=== PATIENT | male | born 1960 | race African-American/Black ===

== ENCOUNTER 2021-07-31 04:49 | Day surgery (SDC) | payer OTHER ==
[2021-07-30 15:13] VITALS: BMI 26.7
[2021-07-31] MEDS ORDERED: MIDAZOLAM HCL 2 MG/2 ML SINGLE DOSE VIAL IVPUSH ONE (12:06)
[2021-07-31 14:39] VITALS: TEMP 97
[2021-07-31 14:40] VITALS: BP 139/82; PULSE 66
== END 2021-07-31 15:10 | disposition home or self-care (01) ==
LOC: JRADIR 04:49
PROVIDERS: ATTEND Urology
PROC: 0T9130Z Drainage of Left Kidney with Drainage Device, Percutaneous Approach (ICD-10-PCS; principal; 2021-07-31)
DX: N13.9 Obstructive and reflux uropathy, unspecified (principal)
CPT/HCPCS: 50432; 87070; 87075; 87102; 87205; 87210; A4358; C1729; C1769

== ENCOUNTER 2021-09-03 05:22 | Day surgery (SDC) | payer OTHER ==
[2021-09-02 11:00] VITALS: BMI 26.7
[2021-09-03 17:19] VITALS: BP 130/82; PULSE 70; TEMP 97.5
== END 2021-09-03 17:58 | disposition home or self-care (01) ==
LOC: JRADIR 05:22
PROVIDERS: ATTEND Urology
PROC: BT12YZZ Fluoroscopy of Left Kidney using Other Contrast (ICD-10-PCS; principal; 2021-09-03)
PROC: 0T9030Z Drainage of Right Kidney with Drainage Device, Percutaneous Approach (ICD-10-PCS; 2021-09-03)
DX: N13.2 Hydronephrosis with renal and ureteral calculous obstruction (principal); N35.819 Other urethral stricture, male, unspecified site
CPT/HCPCS: 50431; 50432

== ENCOUNTER 2021-09-26 04:32 | Day surgery (SDC) | payer OTHER ==
[2021-09-25 10:39] VITALS: BMI 25.7
[2021-09-26] MEDS ORDERED: MIDAZOLAM HCL 2 MG/2 ML SINGLE DOSE VIAL ONE (10:22)
[2021-09-26] MEDS ORDERED: MIDAZOLAM HCL 2 MG/2 ML SINGLE DOSE VIAL IVPUSH ONE ×2 (10:45→11:26)
[2021-09-26] MEDS ORDERED: ACETAMINOPHEN INJECTION 100 ML IVPB ONE (12:53)
[2021-09-26] MEDS ORDERED: ACETAMINOPHEN 1000 MG/100 ML BAG IVPB ONE (13:00)
[2021-09-26] MEDS ORDERED: TAMSULOSIN HCL 0.4 MG CAP PO ONE ×2 (14:43→14:45)
[2021-09-26 16:48] VITALS: BP 154/90; PULSE 80; TEMP 97.9
== END 2021-09-26 17:30 | disposition home or self-care (01) ==
LOC: JRADIR 04:32
PROVIDERS: ATTEND Radiology Diagnostic Radiology
PROC: 0TP93DZ Removal of Intraluminal Device from Ureter, Percutaneous Approach (ICD-10-PCS; principal; 2021-09-26)
PROC: 0T763DZ Dilation of Right Ureter with Intraluminal Device, Percutaneous Approach (ICD-10-PCS; 2021-09-26)
PROC: 0TP Urinary System, Removal (ICD-10-PCS; 2021-09-26)
PROC: 0T743DZ Dilation of Left Kidney Pelvis with Intraluminal Device, Percutaneous Approach (ICD-10-PCS; 2021-09-26)
DX: N13.5 Crossing vessel and stricture of ureter without hydronephrosis (principal)
CPT/HCPCS: 50693; J0131

== ENCOUNTER 2023-05-05 03:36 | Day surgery (SDC) | payer OTHER ==
[2023-05-01 15:11] VITALS: BMI 25.8
[2023-05-05 09:35] LABS: BASO % 1.1 % (0-2.0); HEMATOCRIT 37.9 % (35.4-49); HEMOGLOBIN 11.7 GM/dL (11.7-16.9); LYMPH % 27.3 % (8-40); MCH 24.3 pg (25.7-33.7); MCHC 30.8 g/dl (32.0-35.9); MEAN CELL VOLUME 78.9 fl (80-96); MEAN PLT VOLUME 8.4 fl (7.5-11.1); MONO % 7.7 % (3.8-10.2); NEUT % 61.9 % (42.8-82.8); PLATELET COUNT 257 10^3/uL (134-434); RBC 4.81 M/mm3 (4.00-5.60); RDW 21.8 % (11.9-15.9); WHITE BLOOD COUNT 5.1 K/mm3 (4.0-10.0)
[2023-05-05 09:46] LABS: INR 1.13 (0.83-1.09); PROTHROMBIN TIME (PATIENT) 13.1 SEC (9.7-13.0)
[2023-05-05 10:03] LABS: ANISOCYTOSIS 1+; MACROCYTOSIS 1+
[2023-05-05] MEDS ORDERED: SODIUM CHLORIDE 500 ML IV SCH (10:45)
[2023-05-05] MEDS ORDERED: MIDAZOLAM HCL 2 MG/2 ML SINGLE DOSE VIAL ONE (10:47)
[2023-05-05] MEDS ORDERED: FENTANYL CITRATE/PF 50 MCG/ML VIAL ONE (10:47)
[2023-05-05] MEDS ORDERED: FENTANYL CITRATE/PF 50 MCG/ML VIAL IVPUSH ONE (11:13)
[2023-05-05] MEDS ORDERED: MIDAZOLAM HCL 2 MG/2 ML SINGLE DOSE VIAL IVPUSH ONE ×2 (11:13)
[2023-05-05 12:08] VITALS: RESP 18
[2023-05-05 13:55] VITALS: BP 123/78; PULSE 81; TEMP 98.1
== END 2023-05-05 13:30 | disposition home or self-care (01) ==
LOC: JRADIR 03:36
PROVIDERS: ATTEND Internal Medicine Hematology & Oncology
PROC: 0JH63WZ Insertion of Totally Implantable Vascular Access Device into Chest Subcutaneous Tissue and Fascia, Percutaneous Approach (ICD-10-PCS; principal; 2023-05-05)
DX: C61 Malignant neoplasm of prostate (principal)
CPT/HCPCS: 36561; C1788; 36415; 85025; 85610

== ENCOUNTER 2023-05-11 09:40 | Day surgery (SDC) | payer OTHER ==
[~2023-05-11 09:40] MED LIST: DEXAMETHASONE SODIUM PHOSPHATE IVPB ONE; GRANISETRON HCL IVPB ONE; SODIUM CHLORIDE 250 ML IV ONE; SODIUM CHLORIDE IVPB ONE
[2023-05-11] MEDS ORDERED: DENOSUMAB 120 MG/1.7 ML VIAL SQ ONE (10:00)
[2023-05-11] MEDS ORDERED: DOCETAXEL 140 MG in SODIUM CHLORIDE 250 ML IV ONE (10:00)
[2023-05-11 11:31] LABS: BASO % 0.2 % (0-2.0); HEMATOCRIT 38.6 % (35.4-49); HEMOGLOBIN 12.2 GM/dL (11.7-16.9); LYMPH % 13.1 % (8-40); MCH 24.2 pg (25.7-33.7); MCHC 31.7 g/dl (32.0-35.9); MEAN CELL VOLUME 76.5 fl (80-96); MEAN PLT VOLUME 8.8 fl (7.5-11.1); MONO % 3.9 % (3.8-10.2); NEUT % 82.8 % (42.8-82.8); PLATELET COUNT 286 10^3/uL (134-434); RBC 5.04 M/mm3 (4.00-5.60); RDW 21.6 % (11.9-15.9); WHITE BLOOD COUNT 7.6 K/mm3 (4.0-10.0)
[2023-05-11 11:54] LABS: POTASSIUM 4.7 mmol/L (3.5-5.1)
[2023-05-11 12:00] LABS: ALBUMIN 3.3 g/dl (3.4-5.0); BLOOD UREA NITROGEN 13.5 mg/dL (7-18); CALCIUM 8.9 mg/dL (8.5-10.1); MAGNESIUM 2.2 mg/dL (1.8-2.4)
[2023-05-11 12:03] LABS: ANISOCYTOSIS 1+; BILIRUBIN,DIRECT 0.1 mg/dL (0.0-0.2); CREATININE 0.8 mg/dL (0.55-1.3); MACROCYTOSIS 1+; OVALOCYTE 1+
[2023-05-11 12:05] LABS: BILIRUBIN,TOTAL 0.3 mg/dL (0.2-1); TOT PROT 7.1 g/dl (6.4-8.2)
[2023-05-11] MEDS ORDERED: PORTA CATH FLUSH 10 ML IVPUSH PRN (16:00)
[2023-05-11 16:01] VITALS: RESP 18; TEMP 97.8
[2023-05-11 16:49] VITALS: BP 142/83; PULSE 70
== END 2023-05-11 15:00 | disposition home or self-care (01) ==
LOC: JONCCHEMO 09:40
PROVIDERS: ATTEND Internal Medicine Hematology & Oncology
PROC: 3E04305 Introduction of Other Antineoplastic into Central Vein, Percutaneous Approach (ICD-10-PCS; principal; 2023-05-11)
PROC: 3E013GC Introduction of Other Therapeutic Substance into Subcutaneous Tissue, Percutaneous Approach (ICD-10-PCS; 2023-05-11)
DX: Z51.11 Encounter for antineoplastic chemotherapy (principal); C61 Malignant neoplasm of prostate
CPT/HCPCS: 36415; 80048; 80076; 83735; 84153; 84402; 84403; 85025; 96367; 96372; 96413; J0897

== ENCOUNTER 2023-05-20 10:17 | Day surgery (SDC) | payer OTHER ==
[2023-05-20] MEDS ORDERED: TBO-FILGRASTIM 480 MCG/0.8 ML DISP.SYRIN SQ ONE (10:30)
[2023-05-20 16:44] VITALS: BP 119/78; PULSE 84; RESP 20; TEMP 97.8
== END 2023-05-20 10:45 | disposition home or self-care (01) ==
LOC: JONCCHEMO 10:17 → J7W 10:37 → JONCCHEMO 10:45
PROVIDERS: ATTEND Internal Medicine Hematology & Oncology
PROC: 3E013GC Introduction of Other Therapeutic Substance into Subcutaneous Tissue, Percutaneous Approach (ICD-10-PCS; principal; 2023-05-20)
DX: C61 Malignant neoplasm of prostate (principal); C79.51 Secondary malignant neoplasm of bone; Z76.89 Persons encountering health services in other specified circumstances
CPT/HCPCS: 96372; J1447

== ENCOUNTER 2023-05-21 09:21 | Day surgery (SDC) | payer OTHER ==
[~2023-05-21 09:21] MED LIST changes: -DEXAMETHASONE SODIUM PHOSPHATE IVPB ONE; -GRANISETRON HCL IVPB ONE; -SODIUM CHLORIDE 250 ML IV ONE; -SODIUM CHLORIDE IVPB ONE; +TBO-FILGRASTIM 480 MCG/0.8 ML DISP.SYRIN SQ ONE
[2023-05-21] MEDS ORDERED: BUPIVACAINE HCL/PF 0.5% (5MG/ML) 10 ML VIAL ONE (13:26)
[2023-05-21 16:58] VITALS: BP 103/75; PULSE 90; RESP 18; TEMP 98.4
== END 2023-05-21 10:00 | disposition home or self-care (01) ==
LOC: JONCCHEMO 09:21 → J7W 09:21 → JONCCHEMO 10:00
PROVIDERS: ATTEND Internal Medicine Hematology & Oncology
PROC: 3E013GC Introduction of Other Therapeutic Substance into Subcutaneous Tissue, Percutaneous Approach (ICD-10-PCS; principal; 2023-05-21)
DX: C61 Malignant neoplasm of prostate (principal); C79.51 Secondary malignant neoplasm of bone; C79.52 Secondary malignant neoplasm of bone marrow; Z76.89 Persons encountering health services in other specified circumstances
CPT/HCPCS: 96372; J1447

== ENCOUNTER 2023-05-22 09:27 | Day surgery (SDC) | payer OTHER ==
[2023-05-22 15:44] VITALS: BP 115/75; PULSE 92; RESP 18; TEMP 98.3
== END 2023-05-22 10:05 | disposition home or self-care (01) ==
LOC: J7W 09:27 → JONCCHEMO 09:27
PROVIDERS: ATTEND Internal Medicine Hematology & Oncology
PROC: 3E013GC Introduction of Other Therapeutic Substance into Subcutaneous Tissue, Percutaneous Approach (ICD-10-PCS; principal; 2023-05-22)
DX: C61 Malignant neoplasm of prostate (principal); C79.51 Secondary malignant neoplasm of bone; C79.52 Secondary malignant neoplasm of bone marrow; Z76.89 Persons encountering health services in other specified circumstances
CPT/HCPCS: 96372; J1447

== ENCOUNTER 2023-06-01 09:26 | Day surgery (SDC) | payer OTHER ==
[~2023-06-01 09:26] MED LIST changes: +SODIUM CHLORIDE 250 ML IV ONE; -TBO-FILGRASTIM 480 MCG/0.8 ML DISP.SYRIN SQ ONE
[2023-06-01] MEDS ORDERED: GRANISETRON HCL IVPB ONE (09:30)
[2023-06-01] MEDS ORDERED: DEXAMETHASONE SODIUM PHOSPHATE IVPB ONE (09:30)
[2023-06-01] MEDS ORDERED: SODIUM CHLORIDE IVPB ONE (09:30)
[2023-06-01] MEDS ORDERED: DOCETAXEL 140 MG in SODIUM CHLORIDE 250 ML IV ONE (10:00)
[2023-06-01 10:59] LABS: POTASSIUM 3.9 mmol/L (3.5-5.1)
[2023-06-01] MEDS ORDERED: SODIUM CHLORIDE 250 ML IV ONE (11:00)
[2023-06-01 11:02] LABS: ALBUMIN 3.5 g/dl (3.4-5.0); BLOOD UREA NITROGEN 17.6 mg/dL (7-18); CALCIUM 7.5 mg/dL (8.5-10.1); MAGNESIUM 2.3 mg/dL (1.8-2.4)
[2023-06-01 11:06] LABS: BILIRUBIN,DIRECT 0.1 mg/dL (0.0-0.2); BILIRUBIN,TOTAL 0.4 mg/dL (0.2-1); PHOSPHOROUS 2.6 mg/dL (2.5-4.9)
[2023-06-01 11:07] LABS: BASO % 0.3 % (0-2.0); HEMATOCRIT 35.2 % (35.4-49); HEMOGLOBIN 11.4 GM/dL (11.7-16.9); LYMPH % 27.9 % (8-40); MCH 24.6 pg (25.7-33.7); MCHC 32.4 g/dl (32.0-35.9); MEAN CELL VOLUME 75.9 fl (80-96); MEAN PLT VOLUME 9.6 fl (7.5-11.1); MONO % 6.9 % (3.8-10.2); NEUT % 64.9 % (42.8-82.8); PLATELET COUNT 198 10^3/uL (134-434); RBC 4.64 M/mm3 (4.00-5.60); RDW 23.2 % (11.9-15.9); TOT PROT 6.7 g/dl (6.4-8.2); WHITE BLOOD COUNT 7.8 K/mm3 (4.0-10.0)
[2023-06-01] MEDS ORDERED: CALCIUM GLUCONATE 10% - 1,000 MG/10 ML VIAL IVPB ONE (11:17)
[2023-06-01 12:07] LABS: ANISOCYTOSIS 2+; MACROCYTOSIS 0; OVALOCYTE 1+
[2023-06-01 16:43] VITALS: BP 143/83; PULSE 63; RESP 18; TEMP 98.1
[2023-06-01] MEDS ORDERED: PORTA CATH FLUSH 10 ML IVPUSH PRN (16:43)
== END 2023-06-01 14:05 | disposition home or self-care (01) ==
LOC: JONCCHEMO 09:26 → J7W 09:28 → JONCCHEMO 14:05
PROVIDERS: ATTEND Internal Medicine Hematology & Oncology
PROC: 3E04305 Introduction of Other Antineoplastic into Central Vein, Percutaneous Approach (ICD-10-PCS; principal; 2023-06-01)
PROC: 3E0437Z Introduction of Electrolytic and Water Balance Substance into Central Vein, Percutaneous Approach (ICD-10-PCS; 2023-06-01)
PROC: 3E043GC Introduction of Other Therapeutic Substance into Central Vein, Percutaneous Approach (ICD-10-PCS; 2023-06-01)
DX: Z51.11 Encounter for antineoplastic chemotherapy (principal); C61 Malignant neoplasm of prostate
CPT/HCPCS: 36415; 80048; 80076; 83735; 84100; 84153; 84402; 84403; 85025; 96361; 96367; 96413

== ENCOUNTER 2023-06-02 14:13 | Day surgery (SDC) | payer OTHER ==
[~2023-06-02 14:13] MED LIST changes: +PEGFILGRASTIM-CBQV (UDENYCA) 6 MG/0.6 ML SYRINGE SQ ONE; -SODIUM CHLORIDE 250 ML IV ONE
[2023-06-02 17:35] VITALS: BP 147/86; PULSE 63; RESP 20; TEMP 97.7
== END 2023-06-02 14:15 | disposition home or self-care (01) ==
LOC: JONCCHEMO 14:13 → J7W 14:14 → JONCCHEMO 14:15
PROVIDERS: ATTEND Internal Medicine Hematology & Oncology
PROC: 3E013GC Introduction of Other Therapeutic Substance into Subcutaneous Tissue, Percutaneous Approach (ICD-10-PCS; principal; 2023-06-02)
DX: Z76.89 Persons encountering health services in other specified circumstances (principal); C61 Malignant neoplasm of prostate
CPT/HCPCS: 96372; Q5111

== ENCOUNTER 2023-06-22 10:07 | Day surgery (SDC) | payer OTHER ==
[~2023-06-22 10:07] MED LIST changes: +CALCIUM GLUC IN NACL, ISO-OSM 1 GM/50 ML BAG IVPB ONE; +DEXAMETHASONE SODIUM PHOSPHATE 10 MG in SODIUM CHLORIDE 50 ML IVPB ONE; +GRANISETRON HCL/PF 1 MG in SODIUM CHLORIDE 50 ML IVPB ONE; -PEGFILGRASTIM-CBQV (UDENYCA) 6 MG/0.6 ML SYRINGE SQ ONE; +SODIUM CHLORIDE 250 ML IV ONE
[2023-06-22] MEDS ORDERED: DOCETAXEL 140 MG in SODIUM CHLORIDE 250 ML IV ONE (10:30)
[2023-06-22 11:19] LABS: BASO % 0.1 % (0-2.0); HEMATOCRIT 36.4 % (35.4-49); HEMOGLOBIN 11.5 GM/dL (11.7-16.9); LYMPH % 5.6 % (8-40); MCHC 31.7 g/dl (32.0-35.9); MEAN CELL VOLUME 75.7 fl (80-96); MONO % 7.7 % (3.8-10.2); NEUT % 86.6 % (42.8-82.8); PLATELET COUNT 311 10^3/uL (134-434); RBC 4.81 M/mm3 (4.00-5.60); RDW 24.9 % (11.9-15.9); WHITE BLOOD COUNT 16.3 K/mm3 (4.0-10.0)
[2023-06-22] MEDS ORDERED: SODIUM CHLORIDE 250 ML IV ONE (11:30)
[2023-06-22 11:34] LABS: POTASSIUM 4.4 mmol/L (3.5-5.1)
[2023-06-22 11:36] LABS: CALCIUM 7.8 mg/dL (8.5-10.1)
[2023-06-22 11:37] LABS: ALBUMIN 3.5 g/dl (3.4-5.0); BLOOD UREA NITROGEN 15.6 mg/dL (7-18); MAGNESIUM 2.3 mg/dL (1.8-2.4)
[2023-06-22 11:40] LABS: BILIRUBIN,DIRECT 0.1 mg/dL (0.0-0.2); CREATININE 0.9 mg/dL (0.55-1.3); PHOSPHOROUS 3.1 mg/dL (2.5-4.9)
[2023-06-22 11:41] LABS: TOT PROT 6.8 g/dl (6.4-8.2)
[2023-06-22 11:42] LABS: BILIRUBIN,TOTAL 0.2 mg/dL (0.2-1)
[2023-06-22 12:33] LABS: ANISOCYTOSIS 1+; MACROCYTOSIS 1+; OVALOCYTE 1+
[2023-06-22 16:36] VITALS: BP 141/87; PULSE 91; RESP 18; TEMP 98.1
[2023-06-22] MEDS ORDERED: PORTA CATH FLUSH 10 ML IVPUSH PRN (16:36)
== END 2023-06-22 14:55 | disposition home or self-care (01) ==
LOC: JONCCHEMO 10:07 → J7W 10:14 → JONCCHEMO 14:55
PROVIDERS: ATTEND Internal Medicine Hematology & Oncology
DX: Z51.11 Encounter for antineoplastic chemotherapy (principal); C61 Malignant neoplasm of prostate; C79.51 Secondary malignant neoplasm of bone
CPT/HCPCS: 36415; 80048; 80076; 83735; 84100; 84153; 84402; 84403; 85025; 96367; 96375; 96413

== ENCOUNTER 2023-06-27 07:03 | Observation (INO) | payer OTHER ==
[2023-06-27] MEDS ORDERED: ACETAMINOPHEN 1000 MG/100 ML BAG IVPB ONE (07:45)
[2023-06-27] MEDS ORDERED: ACETAMINOPHEN INJECTION 100 ML IVPB ONE (07:46)
[2023-06-27] MEDS ORDERED: morphine SULFATE 4 MG/ML VIAL IVPUSH ONE (07:52)
[2023-06-27 08:12] LABS: EPI CELLS 34 /uL (0-25.1); HYALINE CASTS 0 /uL (0-3.1); URINE APPEARANCE CLEAR; URINE BACTERIA 24 /uL (0-1359); URINE BILIRUBIN NEGATIVE (NEGATIVE); URINE COLOR YELLOW; URINE GLUCOSE (UA) NEGATIVE (NEGATIVE); URINE KETONE NEGATIVE (NEGATIVE); URINE LEUK ESTERASE TRACE (NEGATIVE); URINE NITRITE NEGATIVE (NEGATIVE); URINE PROTEIN 2+ (NEGATIVE); URINE RBC 42 /uL (0-23.9); URINE UROBILINOGEN 0.2 mg/dL (0.2-1.0); URINE WBC 18 /uL (0-25.8)
[2023-06-27] MEDS ORDERED: morphine SULFATE 4 MG/ML VIAL ONE ×3 (08:33→14:41)
[2023-06-27 08:47] LABS: HEMATOCRIT 35.7 % (35.4-49); HEMOGLOBIN 11.7 GM/dL (11.7-16.9); MCH 24.6 pg (25.7-33.7); MCHC 32.8 g/dl (32.0-35.9); PLATELET COUNT 268 10^3/uL (134-434); RBC 4.76 M/mm3 (4.00-5.60); RDW 24.2 % (11.9-15.9); WHITE BLOOD COUNT 3.6 K/mm3 (4.0-10.0)
[2023-06-27 09:19] LABS: POTASSIUM 4.4 mmol/L (3.5-5.1)
[2023-06-27 09:20] LABS: CALCIUM 7.1 mg/dL (8.5-10.1)
[2023-06-27 09:21] LABS: ALBUMIN 3.3 g/dl (3.4-5.0); BLOOD UREA NITROGEN 11.8 mg/dL (7-18); MAGNESIUM 2.3 mg/dL (1.8-2.4)
[2023-06-27 09:24] LABS: CREATININE 0.8 mg/dL (0.55-1.3)
[2023-06-27 09:26] LABS: BILIRUBIN,TOTAL 0.6 mg/dL (0.2-1); TOT PROT 6.4 g/dl (6.4-8.2)
[2023-06-27 09:50] LABS: ANISOCYTOSIS 2+; MACROCYTOSIS 0
[2023-06-27] MEDS ORDERED: morphine CARPU-JECT 4 MG/1 ML DISP.SYRIN IVPUSH ONE ×2 (11:17→14:39)
[2023-06-27] MEDS ORDERED: CEFTRIAXONE 1,000 MG in DEXTROSE 5%-WATER - 50 ML IVPB ONE (11:41)
[2023-06-27] MEDS ORDERED: DEXTROSE 5% IVPB ONE (12:30)
[2023-06-27] MEDS ORDERED: WATER IVPB ONE (12:30)
[2023-06-27] MEDS ORDERED: GENTAMICIN IVPB ONE (12:30)
[2023-06-27] MEDS ORDERED: CEFTRIAXONE 1 GM/50 ML BAG ONE (13:17)
[2023-06-27] MEDS ORDERED: HYDROmorphone HCl 2 MG/ML VIAL IVPUSH ONE (16:31)
[2023-06-27] MEDS ORDERED: HYDROmorphone HCl 2 MG/ML VIAL ONE (16:40)
[2023-06-27] MEDS ORDERED: CALCIUM GLUC IN NACL, ISO-OSM 1 GM/50 ML BAG IVPB ONE ×2 (17:21→17:40)
[2023-06-27] MEDS ORDERED: ACETAMINOPHEN 500 MG TABLET (FP) PO PRN (17:21)
[2023-06-27] MEDS ORDERED: KETOROLAC TROMETHAMINE 15 MG/ML VIAL ONE (19:38)
[2023-06-27] MEDS: KETOROLAC TROMETHAMINE 15 MG/ML VIAL IVPUSH PRN (19:43)
[2023-06-27 20:47] VITALS: BMI 26.7
[2023-06-27] MEDS ORDERED: TAMSULOSIN HCL 0.4 MG CAP PO SCH (22:00)
[2023-06-27] MEDS ORDERED: PATIENT'S OWN MEDICATION (NON-FORMULARY) (Mirabegron [Myrbetriq] 25 MG Tab.Er.24h) PO SCH (22:00)
[2023-06-27] MEDS: HEPARIN NA (PORCINE) 5,000 UNITS/ML 1ML VIAL SQ SCH (22:03)
[2023-06-28] MEDS: KETOROLAC TROMETHAMINE 15 MG/ML VIAL IVPUSH PRN ×2 (03:29→13:00)
[2023-06-28 04:45] VITALS: BP 131/79; PULSE 115; RESP 22; TEMP 98.6
[2023-06-28 09:36] LABS: HEMATOCRIT 35.4 % (35.4-49); HEMOGLOBIN 11.6 GM/dL (11.7-16.9); MCH 24.4 pg (25.7-33.7); MCHC 32.7 g/dl (32.0-35.9); MEAN CELL VOLUME 74.6 fl (80-96); MEAN PLT VOLUME 9.2 fl (7.5-11.1); PLATELET COUNT 271 10^3/uL (134-434); RBC 4.74 M/mm3 (4.00-5.60); RDW 24.8 % (11.9-15.9); WHITE BLOOD COUNT 2.3 K/mm3 (4.0-10.0)
[2023-06-28 09:37] LABS: CHLORIDE 110 mmol/L (98-107); POTASSIUM 4.9 mmol/L (3.5-5.1); SODIUM 140 mmol/L (136-145)
[2023-06-28 09:46] LABS: ALBUMIN 3.2 g/dl (3.4-5.0); ANION GAP 8 MMOL/L (8-16); CO2 22 mmol/L (21-32); GLUCOSE,RANDOM 119 mg/dL (74-106)
[2023-06-28 09:48] LABS: SGOT/AST 10 U/L (15-37); SGPT/ALT 24 U/L (13-61)
[2023-06-28 09:50] LABS: BILIRUBIN,TOTAL 0.5 mg/dL (0.2-1)
[2023-06-28 09:51] LABS: ALK PHOS 90 U/L (45-117)
[2023-06-28 09:54] LABS: CALCIUM 6.7 mg/dL (8.5-10.1)
[2023-06-28] MEDS ORDERED: CALCIUM 500MG/VIT-D 200 UNITS COMBO TABLET (FP) PO SCH (10:00)
[2023-06-28] MEDS ORDERED: CEFTRIAXONE 1 GM in DEXTROSE 5%-WATER - 50 ML IVPB SCH (10:00)
[2023-06-28] MEDS ORDERED: predniSONE 5 MG TABLET (UD) PO SCH (10:00)
[2023-06-28] MEDS ORDERED: PANTOPRAZOLE 40 MG TABLET PO SCH (10:00)
[2023-06-28] MEDS: HEPARIN NA (PORCINE) 5,000 UNITS/ML 1ML VIAL SQ SCH (10:22)
== END 2023-06-28 14:13 | disposition home or self-care (01) ==
LOC: JER 07:03 → JERBED 12:47 → INTOOBSV 12:47 → UNDOADMOB 12:47 → JERBED 17:19 → J6S 20:13 → JERBED 20:13 → UNDODISOB 06-28 14:13
PROVIDERS: ADMIT Internal Medicine; ATTEND Internal Medicine
PROC: 3E033NZ Introduction of Analgesics, Hypnotics, Sedatives into Peripheral Vein, Percutaneous Approach (ICD-10-PCS; principal; 2023-06-27)
PROC: 3E033GC Introduction of Other Therapeutic Substance into Peripheral Vein, Percutaneous Approach (ICD-10-PCS; 2023-06-27)
PROC: 3E03329 Introduction of Other Anti-infective into Peripheral Vein, Percutaneous Approach (ICD-10-PCS; 2023-06-27)
PROC: 3E023GC Introduction of Other Therapeutic Substance into Muscle, Percutaneous Approach (ICD-10-PCS; 2023-06-27)
PROC: 3E033NZ Introduction of Analgesics, Hypnotics, Sedatives into Peripheral Vein, Percutaneous Approach (ICD-10-PCS; 2023-06-27)
DX: N41.9 Inflammatory disease of prostate, unspecified (principal); C61 Malignant neoplasm of prostate; N13.30 Unspecified hydronephrosis; R82.81 Pyuria; Z79.899 Other long term (current) drug therapy; Z87.891 Personal history of nicotine dependence; K92.9 Disease of digestive system, unspecified
CPT/HCPCS: 36415; 74177-TC; 76775-TC; 80053; 81003; 83735; 85025; 87086; 93005; 93010; 96365; 96366; 96367; 96372; 96375; 96376; 99285-25; G0378; J1644; Q9967

== ENCOUNTER 2023-06-29 10:09 | Day surgery (SDC) | payer OTHER ==
[2023-06-29] MEDS ORDERED: DENOSUMAB 120 MG/1.7 ML VIAL SQ ONE (10:45)
[2023-06-29] MEDS ORDERED: CALCIUM GLUC IN NACL, ISO-OSM 1 GM/50 ML BAG IVPB ONE (10:45)
[2023-06-29] MEDS ORDERED: TBO-FILGRASTIM 480 MCG/0.8 ML DISP.SYRIN SQ ONE (10:45)
[2023-06-29 11:11] LABS: HEMATOCRIT 36.2 % (35.4-49); HEMOGLOBIN 11.8 GM/dL (11.7-16.9); MCH 24.5 pg (25.7-33.7); MCHC 32.5 g/dl (32.0-35.9); MEAN CELL VOLUME 75.2 fl (80-96); MEAN PLT VOLUME 9.3 fl (7.5-11.1); PLATELET COUNT 307 10^3/uL (134-434); RBC 4.82 M/mm3 (4.00-5.60)
[2023-06-29 11:13] LABS: WHITE BLOOD COUNT 1.4 K/mm3 (4.0-10.0)
[2023-06-29 11:30] LABS: CALCIUM 7.4 mg/dL (8.5-10.1)
[2023-06-29 11:31] LABS: ALBUMIN 3.4 g/dl (3.4-5.0); BLOOD UREA NITROGEN 13.4 mg/dL (7-18); MAGNESIUM 2.2 mg/dL (1.8-2.4)
[2023-06-29 11:33] LABS: BILIRUBIN,DIRECT 0.1 mg/dL (0.0-0.2)
[2023-06-29 11:34] LABS: CREATININE 0.8 mg/dL (0.55-1.3); PHOSPHOROUS 2.8 mg/dL (2.5-4.9)
[2023-06-29 11:35] LABS: TOT PROT 6.6 g/dl (6.4-8.2)
[2023-06-29 11:39] LABS: BILIRUBIN,TOTAL 0.4 mg/dL (0.2-1)
[2023-06-29 11:42] LABS: ANISOCYTOSIS 2+; TARGET CELLS 1+; TEAR DROP CELLS 1+
[2023-06-29] MEDS ORDERED: traMADol HCL 50 MG TABLET PO ONE (11:45)
[2023-06-29 17:49] VITALS: RESP 18; TEMP 98.1
[2023-06-29 17:51] VITALS: BP 126/78; PULSE 111
[2023-06-29] MEDS ORDERED: PORTA CATH FLUSH 10 ML IVPUSH PRN (17:51)
== END 2023-06-29 11:10 | disposition home or self-care (01) ==
LOC: JONCCHEMO 10:09 → J7W 10:12 → JONCCHEMO 11:10
PROVIDERS: ATTEND Internal Medicine Hematology & Oncology
PROC: 3E013GC Introduction of Other Therapeutic Substance into Subcutaneous Tissue, Percutaneous Approach (ICD-10-PCS; principal; 2023-06-29)
PROC: 3E013GC Introduction of Other Therapeutic Substance into Subcutaneous Tissue, Percutaneous Approach (ICD-10-PCS; 2023-06-29)
DX: C61 Malignant neoplasm of prostate (principal); C79.51 Secondary malignant neoplasm of bone; Z76.89 Persons encountering health services in other specified circumstances
CPT/HCPCS: 36415; 80048; 80076; 83735; 84100; 85025; 96372; J0897; J1447

== ENCOUNTER 2023-06-30 09:33 | Day surgery (SDC) | payer OTHER ==
[2023-06-30] MEDS ORDERED: TBO-FILGRASTIM 480 MCG/0.8 ML DISP.SYRIN SQ ONE (10:00)
[2023-06-30 13:27] VITALS: BP 114/69; PULSE 107; RESP 18; TEMP 98.2
== END 2023-06-30 10:00 | disposition home or self-care (01) ==
LOC: J7W 09:33 → JONCCHEMO 09:33
PROVIDERS: ATTEND Internal Medicine Hematology & Oncology
PROC: 3E013GC Introduction of Other Therapeutic Substance into Subcutaneous Tissue, Percutaneous Approach (ICD-10-PCS; principal; 2023-06-30)
DX: C61 Malignant neoplasm of prostate (principal); C79.51 Secondary malignant neoplasm of bone; Z76.89 Persons encountering health services in other specified circumstances
CPT/HCPCS: 96372; J1447

== ENCOUNTER 2023-07-01 08:11 | Day surgery (SDC) | payer OTHER ==
[2023-07-01] MEDS ORDERED: TBO-FILGRASTIM 480 MCG/0.8 ML DISP.SYRIN SQ ONE (08:45)
[2023-07-01 16:39] VITALS: BP 127/66; PULSE 110; RESP 18; TEMP 98.2
== END 2023-07-01 09:00 | disposition home or self-care (01) ==
LOC: JONCCHEMO 08:11 → J7W 08:12 → JONCCHEMO 09:00
PROVIDERS: ATTEND Internal Medicine Hematology & Oncology
PROC: 3E013GC Introduction of Other Therapeutic Substance into Subcutaneous Tissue, Percutaneous Approach (ICD-10-PCS; principal; 2023-07-01)
DX: C61 Malignant neoplasm of prostate (principal); C79.51 Secondary malignant neoplasm of bone; Z76.89 Persons encountering health services in other specified circumstances
CPT/HCPCS: 96372; J1447

== ENCOUNTER 2023-07-27 10:36 | Day surgery (SDC) | payer OTHER ==
[~2023-07-27 10:36] MED LIST changes: -CALCIUM GLUC IN NACL, ISO-OSM 1 GM/50 ML BAG IVPB ONE; +DENOSUMAB 120 MG/1.7 ML VIAL SQ ONE; -DEXAMETHASONE SODIUM PHOSPHATE 10 MG in SODIUM CHLORIDE 50 ML IVPB ONE; -GRANISETRON HCL/PF 1 MG in SODIUM CHLORIDE 50 ML IVPB ONE; -SODIUM CHLORIDE 250 ML IV ONE
[2023-07-27 19:04] VITALS: BP 114/77; PULSE 103; RESP 20; TEMP 99
== END 2023-07-27 11:00 | disposition home or self-care (01) ==
LOC: JONCCHEMO 10:36 → J7W 10:37 → JONCCHEMO 11:00
PROVIDERS: ATTEND Internal Medicine Hematology & Oncology
PROC: 3E013GC Introduction of Other Therapeutic Substance into Subcutaneous Tissue, Percutaneous Approach (ICD-10-PCS; principal; 2023-07-27)
DX: C61 Malignant neoplasm of prostate (principal); Z76.89 Persons encountering health services in other specified circumstances
CPT/HCPCS: 96372; J0897

== ENCOUNTER 2023-07-31 23:52 | Inpatient (IN) | payer OTHER ==
[2023-08-01] MEDS ORDERED: morphine CARPU-JECT 4 MG/1 ML DISP.SYRIN IVPUSH ONE (00:21)
[2023-08-01] MEDS ORDERED: morphine SULFATE 4 MG/ML VIAL ONE (00:31)
[2023-08-01 00:35] LABS: HEMATOCRIT 34.8 % (35.4-49); HEMOGLOBIN 11.1 GM/dL (11.7-16.9); MCH 24.1 pg (25.7-33.7); MEAN CELL VOLUME 75.3 fl (80-96); PLATELET COUNT 271 10^3/uL (134-434); RBC 4.62 M/mm3 (4.00-5.60); RDW 27.2 % (11.9-15.9); WHITE BLOOD COUNT 11.9 K/mm3 (4.0-10.0)
[2023-08-01 01:10] LABS: POTASSIUM 3.5 mmol/L (3.5-5.1)
[2023-08-01 01:11] LABS: CALCIUM 7.9 mg/dL (8.5-10.1)
[2023-08-01 01:12] LABS: ALBUMIN 3.5 g/dl (3.4-5.0); BLOOD UREA NITROGEN 14.5 mg/dL (7-18)
[2023-08-01 01:17] LABS: BILIRUBIN,TOTAL 0.3 mg/dL (0.2-1); TOT PROT 6.5 g/dl (6.4-8.2)
[2023-08-01 03:11] LABS: ANISOCYTOSIS 1+; MACROCYTOSIS 1+; TEAR DROP CELLS 1+
[2023-08-01 03:29] LABS: EPI CELLS 4 /uL (0-25.1); HYALINE CASTS 0 /uL (0-3.1); PH,URINE 5.5 (5.0-8.0); URINE APPEARANCE CLEAR; URINE BACTERIA 0 /uL (0-1359); URINE BILIRUBIN NEGATIVE (NEGATIVE); URINE COLOR YELLOW; URINE GLUCOSE (UA) NEGATIVE (NEGATIVE); URINE KETONE NEGATIVE (NEGATIVE); URINE LEUK ESTERASE TRACE (NEGATIVE); URINE NITRITE NEGATIVE (NEGATIVE); URINE PROTEIN NEGATIVE (NEGATIVE); URINE RBC 3 /uL (0-23.9); URINE UROBILINOGEN 0.2 mg/dL (0.2-1.0); URINE WBC 15 /uL (0-25.8)
[2023-08-01] MEDS ORDERED: HYDROmorphone HCl 2 MG/ML VIAL IVPUSH ONE (03:30)
[2023-08-01] MEDS ORDERED: HYDROmorphone HCl 2 MG/ML VIAL ONE ×2 (03:42→08:09)
[2023-08-01] MEDS ORDERED: PANTOPRAZOLE 40 MG TABLET PO ONE ×2 (06:46→07:25)
[2023-08-01] MEDS ORDERED: TAMSULOSIN HCL 0.4 MG CAP PO ONE (06:47)
[2023-08-01] MEDS ORDERED: TAMSULOSIN HCL 0.4 MG CAP ONE (07:25)
[2023-08-01] MEDS ORDERED: HYDROmorphone HCl 2 MG/ML VIAL IVPB ONE (07:57)
[2023-08-01] MEDS ORDERED: ENOXAPARIN NA (PORCINE) 40 MG/0.4 ML DISP.SYRIN SQ ONE (09:29)
[2023-08-01] MEDS: ENOXAPARIN NA (PORCINE) 40 MG/0.4 ML DISP.SYRIN SQ SCH (09:42)
[2023-08-01] MEDS: predniSONE 5 MG TABLET (UD) PO SCH (09:42)
[2023-08-01] MEDS ORDERED: morphine SULFATE 4 MG/ML VIAL SQ PRN (10:18)
[2023-08-01 11:39] VITALS: BMI 26.3
[2023-08-01] MEDS: morphine SULFATE 4 MG/ML VIAL IVPUSH PRN ×2 (13:39→16:55)
[2023-08-01] MEDS: morphine SO4 SUSTAINED ACTING 15 MG TABLET.SA PO SCH ×2 (16:01→21:11)
[2023-08-01] MEDS: DOCUSATE NA 100 MG/10 ML UNIT-DOSE CUPS PO PRN (16:55)
[2023-08-01] MEDS: traZODone HCL 50 MG TABLET (FP) PO PRN (18:16)
[2023-08-01] MEDS: SENNOSIDES 8.8 MG/5 ML SYRUP PO SCH (21:11)
[2023-08-02] MEDS: morphine SULFATE 4 MG/ML VIAL IVPUSH PRN ×4 (00:53→20:24)
[2023-08-02] MEDS ORDERED: SODIUM CHLORIDE IV ONE (05:51)
[2023-08-02] MEDS ORDERED: SODIUM CHLORIDE 1,000 ML IV STA (06:11)
[2023-08-02] MEDS ORDERED: PIPERACILLIN/TAZOB 3.375 GM 3.375 GM in DEXTROSE 5%-WATER - 50 ML IVPB ONE (06:15)
[2023-08-02] MEDS ORDERED: VANCOMYCIN/WATER 1250 MG 1,250 MG/250 ML BAG IVPB ONE (06:30)
[2023-08-02] MEDS ORDERED: SODIUM CHLORIDE 1,000 ML IV ONE (07:15)
[2023-08-02] MEDS: ACETAMINOPHEN 1000 MG/100 ML BAG IVPB PRN ×3 (07:32→21:38)
[2023-08-02] MEDS: predniSONE 5 MG TABLET (UD) PO SCH ×2 (08:56→09:09)
[2023-08-02] MEDS: morphine SO4 SUSTAINED ACTING 15 MG TABLET.SA PO SCH ×4 (08:56→21:34)
[2023-08-02] MEDS: ENOXAPARIN NA (PORCINE) 40 MG/0.4 ML DISP.SYRIN SQ SCH ×2 (08:57→09:09)
[2023-08-02] MEDS: PANTOPRAZOLE 40 MG TABLET PO SCH ×2 (08:57→09:09)
[2023-08-02] MEDS: TAMSULOSIN HCL 0.4 MG CAP PO SCH (08:57)
[2023-08-02] MEDS: CALCIUM CARBONATE 650 MG TABLET PO SCH (12:50)
[2023-08-02] MEDS: CEFTRIAXONE 1 GM in DEXTROSE 5%-WATER - 50 ML IVPB SCH (15:14)
[2023-08-02] MEDS: traZODone HCL 50 MG TABLET (FP) PO PRN (20:31)
[2023-08-02] MEDS: SENNOSIDES 8.8 MG/5 ML SYRUP PO SCH ×2 (20:31→21:33)
[2023-08-03] MEDS: morphine SULFATE 4 MG/ML VIAL IVPUSH PRN ×3 (01:54→16:31)
[2023-08-03] MEDS: CEFTRIAXONE 1 GM in DEXTROSE 5%-WATER - 50 ML IVPB SCH (10:00)
[2023-08-03] MEDS: ENOXAPARIN NA (PORCINE) 40 MG/0.4 ML DISP.SYRIN SQ SCH (10:01)
[2023-08-03] MEDS: morphine SO4 SUSTAINED ACTING 15 MG TABLET.SA PO SCH ×2 (10:01→21:37)
[2023-08-03] MEDS: predniSONE 5 MG TABLET (UD) PO SCH (10:01)
[2023-08-03] MEDS: PANTOPRAZOLE 40 MG TABLET PO SCH (10:01)
[2023-08-03] MEDS: ACETAMINOPHEN 325 MG TABLET (FP) PO PRN ×2 (10:02→21:39)
[2023-08-03] MEDS: TAMSULOSIN HCL 0.4 MG CAP PO SCH (10:02)
[2023-08-03] MEDS: CALCIUM CARBONATE 650 MG TABLET PO SCH (10:02)
[2023-08-03 10:53] LABS: HEMATOCRIT 31.4 % (35.4-49); HEMOGLOBIN 10.2 GM/dL (11.7-16.9); MCH 24.6 pg (25.7-33.7); MCHC 32.6 g/dl (32.0-35.9); MEAN CELL VOLUME 75.5 fl (80-96); MEAN PLT VOLUME 8.6 fl (7.5-11.1); PLATELET COUNT 280 10^3/uL (134-434); RBC 4.16 M/mm3 (4.00-5.60); RDW 27.1 % (11.9-15.9); WHITE BLOOD COUNT 12.6 K/mm3 (4.0-10.0)
[2023-08-03 11:00] LABS: CHLORIDE 108 mmol/L (98-107); POTASSIUM 3.5 mmol/L (3.5-5.1); SODIUM 136 mmol/L (136-145)
[2023-08-03 11:02] LABS: ANION GAP 6 mmol/L (4-13); BLOOD UREA NITROGEN 9.5 mg/dL (7-18); CO2 22 mmol/L (21-32); GLUCOSE,RANDOM 141 mg/dL (74-106)
[2023-08-03 11:05] LABS: CREATININE 1.1 mg/dL (0.55-1.3); SGOT/AST 103 U/L (15-37); SGPT/ALT 10 U/L (13-61)
[2023-08-03 11:07] LABS: TOT PROT 5.8 g/dl (6.4-8.2)
[2023-08-03 11:08] LABS: ALBUMIN 2.8 g/dl (3.4-5.0); ALK PHOS 173 U/L (45-117); CALCIUM 6.9 mg/dL (8.5-10.1)
[2023-08-03 14:01] LABS: ANISOCYTOSIS 1+; MACROCYTOSIS 0; TARGET CELLS 1+; TEAR DROP CELLS 1+
[2023-08-03] MEDS: SENNOSIDES 8.8 MG/5 ML SYRUP PO SCH (21:39)
[2023-08-03] MEDS: traZODone HCL 50 MG TABLET (FP) PO PRN (22:55)
[2023-08-04] MEDS: morphine SULFATE 4 MG/ML VIAL IVPUSH PRN ×4 (03:13→20:07)
[2023-08-04 07:54] LABS: HEMATOCRIT 29.6 % (35.4-49); HEMOGLOBIN 9.4 GM/dL (11.7-16.9); MCHC 31.8 g/dl (32.0-35.9); MEAN CELL VOLUME 75.3 fl (80-96); MEAN PLT VOLUME 8.5 fl (7.5-11.1); PLATELET COUNT 259 10^3/uL (134-434); RBC 3.93 M/mm3 (4.00-5.60); RDW 26.8 % (11.9-15.9); WHITE BLOOD COUNT 11.2 K/mm3 (4.0-10.0)
[2023-08-04 07:59] LABS: POTASSIUM 3.9 mmol/L (3.5-5.1)
[2023-08-04 08:01] LABS: ALBUMIN 2.6 g/dl (3.4-5.0); BLOOD UREA NITROGEN 8.2 mg/dL (7-18); CALCIUM 7.1 mg/dL (8.5-10.1)
[2023-08-04 08:07] LABS: BILIRUBIN,TOTAL 0.6 mg/dL (0.2-1); TOT PROT 5.7 g/dl (6.4-8.2)
[2023-08-04 08:39] LABS: ANISOCYTOSIS 3+; MACROCYTOSIS 0; TARGET CELLS 1+; TEAR DROP CELLS 1+
[2023-08-04] MEDS ORDERED: BISACODYL 10 MG SUPP.RECT PR PRN (11:08)
[2023-08-04] MEDS: DOCUSATE NA 100 MG/10 ML UNIT-DOSE CUPS PO PRN (11:18)
[2023-08-04] MEDS: CEFTRIAXONE 1 GM in DEXTROSE 5%-WATER - 50 ML IVPB SCH (11:18)
[2023-08-04] MEDS: predniSONE 5 MG TABLET (UD) PO SCH (11:18)
[2023-08-04] MEDS: PANTOPRAZOLE 40 MG TABLET PO SCH (11:19)
[2023-08-04] MEDS: CALCIUM CARBONATE 650 MG TABLET PO SCH (11:19)
[2023-08-04] MEDS: TAMSULOSIN HCL 0.4 MG CAP PO SCH (11:19)
[2023-08-04] MEDS: ENOXAPARIN NA (PORCINE) 40 MG/0.4 ML DISP.SYRIN SQ SCH (11:20)
[2023-08-04] MEDS: morphine SO4 SUSTAINED ACTING 15 MG TABLET.SA PO SCH ×2 (11:22→21:55)
[2023-08-04] MEDS: LIDOCAINE 4% PATCH TP SCH (13:53)
[2023-08-04] MEDS: SENNOSIDES 8.8 MG/5 ML SYRUP PO SCH (21:55)
[2023-08-04] MEDS: LIDOCAINE PATCH REMOVAL MC SCH (21:57)
[2023-08-04] MEDS: traZODone HCL 50 MG TABLET (FP) PO PRN (22:24)
[2023-08-05] MEDS: morphine SULFATE 4 MG/ML VIAL IVPUSH PRN ×2 (01:17→06:32)
[2023-08-05] MEDS: PANTOPRAZOLE 40 MG TABLET PO SCH (09:45)
[2023-08-05] MEDS: CALCIUM CARBONATE 650 MG TABLET PO SCH (09:45)
[2023-08-05] MEDS: ENOXAPARIN NA (PORCINE) 40 MG/0.4 ML DISP.SYRIN SQ SCH (09:45)
[2023-08-05] MEDS: TAMSULOSIN HCL 0.4 MG CAP PO SCH (09:45)
[2023-08-05] MEDS: predniSONE 5 MG TABLET (UD) PO SCH (09:45)
[2023-08-05] MEDS: CEFTRIAXONE 1 GM in DEXTROSE 5%-WATER - 50 ML IVPB SCH (09:45)
[2023-08-05] MEDS: LIDOCAINE 4% PATCH TP SCH (09:46)
[2023-08-05] MEDS: morphine SO4 SUSTAINED ACTING 15 MG TABLET.SA PO SCH ×2 (09:48→21:23)
[2023-08-05] MEDS ORDERED: DOCUSATE SODIUM 100 MG CAPSULE (FP) PO PRN (10:47)
[2023-08-05] MEDS ORDERED: FENTANYL PATCH WASTE TD PRN (10:47)
[2023-08-05] MEDS ORDERED: morphine SULFATE 4 MG/ML VIAL IVPUSH PRN (10:48)
[2023-08-05] MEDS ORDERED: fentaNYL 25mcg/hr PATCH.TD72 TD SCH (11:00)
[2023-08-05] MEDS: traZODone HCL 50 MG TABLET (FP) PO PRN (21:23)
[2023-08-05] MEDS: SENNOSIDES 8.8 MG/5 ML SYRUP PO SCH (21:24)
[2023-08-05] MEDS: LIDOCAINE PATCH REMOVAL MC SCH (21:24)
[2023-08-06] MEDS: CEFTRIAXONE 1 GM in DEXTROSE 5%-WATER - 50 ML IVPB SCH (10:09)
[2023-08-06] MEDS: morphine SO4 SUSTAINED ACTING 15 MG TABLET.SA PO SCH (10:10)
[2023-08-06] MEDS: CALCIUM CARBONATE 650 MG TABLET PO SCH (10:10)
[2023-08-06] MEDS: PANTOPRAZOLE 40 MG TABLET PO SCH (10:10)
[2023-08-06] MEDS: ENOXAPARIN NA (PORCINE) 40 MG/0.4 ML DISP.SYRIN SQ SCH (10:12)
[2023-08-06] MEDS: TAMSULOSIN HCL 0.4 MG CAP PO SCH (10:12)
[2023-08-06] MEDS: predniSONE 5 MG TABLET (UD) PO SCH (10:12)
[2023-08-06 14:21] VITALS: BP 122/73; PULSE 112; RESP 20; TEMP 97.9
== END 2023-08-06 14:20 | disposition home or self-care (01) | DRG 343 ==
LOC: JER 23:52 → JERBED 08-01 03:21 → J5S 08-01 10:00 → UNDODISOB 08-03 12:30 → J7W 08-03 14:53 → OBSVTOIN 08-04 10:52
PROVIDERS: ADMIT Internal Medicine; ATTEND Internal Medicine
DX: C79.51 Secondary malignant neoplasm of bone (principal); M54.9 Dorsalgia, unspecified; I10 Essential (primary) hypertension; N40.0 Benign prostatic hyperplasia without lower urinary tract symptoms; E78.5 Hyperlipidemia, unspecified; E83.51 Hypocalcemia; G95.20 Unspecified cord compression; R50.9 Fever, unspecified; C61 Malignant neoplasm of prostate; N13.30 Unspecified hydronephrosis
CPT/HCPCS: 36415; 71045-TC-FY; 72131-TC; 74177-TC; 80053; 81003; 85025; 87040; 87086; 87635; 99285-25; G0378; Q9967

== ENCOUNTER 2023-08-10 13:22 | Day surgery (SDC) | payer OTHER ==
[~2023-08-10 13:22] MED LIST changes: -DENOSUMAB 120 MG/1.7 ML VIAL SQ ONE; +DEXAMETHASONE SODIUM PHOSPHATE 10 MG in SODIUM CHLORIDE 50 ML IVPB ONE; +DOCETAXEL 140 MG in SODIUM CHLORIDE 250 ML IV ONE; +GRANISETRON HCL/PF 1 MG in SODIUM CHLORIDE 50 ML IVPB ONE; +SODIUM CHLORIDE 250 ML IV ONE
[2023-08-10 13:34] LABS: HEMATOCRIT 32.3 % (35.4-49); MCH 23.6 pg (25.7-33.7); MCHC 30.8 g/dl (32.0-35.9); MEAN CELL VOLUME 76.7 fl (80-96); MEAN PLT VOLUME 7.7 fl (7.5-11.1); PLATELET COUNT 440 10^3/uL (134-434); RBC 4.21 M/mm3 (4.00-5.60); RDW 26.8 % (11.9-15.9); WHITE BLOOD COUNT 8.1 K/mm3 (4.0-10.0)
[2023-08-10 13:56] LABS: POTASSIUM 4.1 mmol/L (3.5-5.1)
[2023-08-10 14:00] LABS: BLOOD UREA NITROGEN 10.7 mg/dL (7-18); MAGNESIUM 2.4 mg/dL (1.8-2.4)
[2023-08-10 14:02] LABS: BILIRUBIN,DIRECT 0.1 mg/dL (0.0-0.2)
[2023-08-10 14:03] LABS: CREATININE 0.9 mg/dL (0.55-1.3); PHOSPHOROUS 2.8 mg/dL (2.5-4.9)
[2023-08-10 14:04] LABS: BILIRUBIN,TOTAL 0.6 mg/dL (0.2-1)
[2023-08-10 14:06] LABS: CALCIUM 8.6 mg/dL (8.5-10.1)
[2023-08-10] MEDS ORDERED: DEXAMETHASONE SOD PHOSPHATE 20 MG/5 ML VIAL IVPB ONE (14:15)
[2023-08-10 14:28] LABS: ANISOCYTOSIS 3+; MACROCYTOSIS 0; OVALOCYTE 1+; TARGET CELLS 2+
[2023-08-10] MEDS ORDERED: DEXAMETHASONE SODIUM PHOSPHATE 12 MG in SODIUM CHLORIDE 50 ML IVPB ONE (14:45)
[2023-08-10 17:31] VITALS: BP 125/76; PULSE 91; RESP 18; TEMP 97.8
[2023-08-10] MEDS ORDERED: PORTA CATH FLUSH 10 ML IVPUSH PRN (17:31)
== END 2023-08-10 17:43 | disposition home or self-care (01) ==
LOC: JONCCHEMO 13:22 → J7W 13:25 → JONCCHEMO 17:43
PROVIDERS: ATTEND Internal Medicine Hematology & Oncology
DX: Z51.11 Encounter for antineoplastic chemotherapy (principal); C61 Malignant neoplasm of prostate
CPT/HCPCS: 36415; 80048; 80076; 83735; 84100; 84153; 84402; 84403; 85025; 96361; 96367; 96413

== ENCOUNTER 2023-08-11 13:46 | Day surgery (SDC) | payer OTHER ==
[~2023-08-11 13:46] MED LIST changes: -DEXAMETHASONE SODIUM PHOSPHATE 10 MG in SODIUM CHLORIDE 50 ML IVPB ONE; -DOCETAXEL 140 MG in SODIUM CHLORIDE 250 ML IV ONE; -GRANISETRON HCL/PF 1 MG in SODIUM CHLORIDE 50 ML IVPB ONE; +PEGFILGRASTIM-CBQV (UDENYCA) 6 MG/0.6 ML SYRINGE SQ ONE; -SODIUM CHLORIDE 250 ML IV ONE
[2023-08-11 15:58] VITALS: BP 128/83; PULSE 82; RESP 18; TEMP 97.3
== END 2023-08-11 14:15 | disposition home or self-care (01) ==
LOC: JONCCHEMO 13:46
PROVIDERS: ATTEND Internal Medicine Hematology & Oncology
PROC: 3E013GC Introduction of Other Therapeutic Substance into Subcutaneous Tissue, Percutaneous Approach (ICD-10-PCS; principal; 2023-08-11)
DX: Z76.89 Persons encountering health services in other specified circumstances (principal); C61 Malignant neoplasm of prostate
CPT/HCPCS: 96372; Q5111

== ENCOUNTER 2023-08-24 09:36 | Day surgery (SDC) | payer OTHER ==
[2023-08-24] MEDS ORDERED: DENOSUMAB 120 MG/1.7 ML VIAL SQ ONE (10:00)
[2023-08-24 10:22] LABS: HEMATOCRIT 31.7 % (35.4-49); HEMOGLOBIN 9.7 GM/dL (11.7-16.9); MCH 24.2 pg (25.7-33.7); MCHC 30.5 g/dl (32.0-35.9); MEAN CELL VOLUME 79.4 fl (80-96); MEAN PLT VOLUME 8.6 fl (7.5-11.1); PLATELET COUNT 167 10^3/uL (134-434); RBC 3.99 M/mm3 (4.00-5.60); RDW 27.8 % (11.9-15.9); WHITE BLOOD COUNT 14.1 K/mm3 (4.0-10.0)
[2023-08-24 10:35] LABS: POTASSIUM 4.3 mmol/L (3.5-5.1)
[2023-08-24 10:37] LABS: CALCIUM 8.5 mg/dL (8.5-10.1)
[2023-08-24 10:38] LABS: ALBUMIN 3.2 g/dl (3.4-5.0); BLOOD UREA NITROGEN 11.3 mg/dL (7-18); MAGNESIUM 2.3 mg/dL (1.8-2.4)
[2023-08-24 10:41] LABS: CREATININE 0.9 mg/dL (0.55-1.3)
[2023-08-24 10:43] LABS: BILIRUBIN,TOTAL 0.5 mg/dL (0.2-1)
[2023-08-24 12:48] LABS: ANISOCYTOSIS 2+; MACROCYTOSIS 0; OVALOCYTE 2+; TARGET CELLS 2+; TEAR DROP CELLS 2+
[2023-08-24 14:36] VITALS: BP 124/71; PULSE 77; RESP 18; TEMP 97.6
== END 2023-08-24 10:45 | disposition home or self-care (01) ==
LOC: JONCCHEMO 09:36 → J7W 09:38 → JONCCHEMO 10:45
PROVIDERS: ATTEND Internal Medicine Hematology & Oncology
PROC: 3E013GC Introduction of Other Therapeutic Substance into Subcutaneous Tissue, Percutaneous Approach (ICD-10-PCS; principal; 2023-08-24)
DX: C61 Malignant neoplasm of prostate (principal); C79.51 Secondary malignant neoplasm of bone; C79.52 Secondary malignant neoplasm of bone marrow; Z76.89 Persons encountering health services in other specified circumstances
CPT/HCPCS: 36415; 80053; 83735; 85025; 96372; J0897

== ENCOUNTER 2023-08-31 09:35 | Day surgery (SDC) | payer OTHER ==
[~2023-08-31 09:35] MED LIST changes: +DEXAMETHASONE SODIUM PHOSPHATE 10 MG in SODIUM CHLORIDE 50 ML IVPB ONE; +GRANISETRON HCL/PF 1 MG in SODIUM CHLORIDE 50 ML IVPB ONE; -PEGFILGRASTIM-CBQV (UDENYCA) 6 MG/0.6 ML SYRINGE SQ ONE; +SODIUM CHLORIDE 250 ML IV ONE
[2023-08-31] MEDS ORDERED: DOCETAXEL 140 MG in SODIUM CHLORIDE 250 ML IV ONE (10:00)
[2023-08-31 10:39] LABS: HEMATOCRIT 30.8 % (35.4-49); HEMOGLOBIN 9.3 GM/dL (11.7-16.9); MCH 23.8 pg (25.7-33.7); MCHC 30.2 g/dl (32.0-35.9); MEAN CELL VOLUME 78.8 fl (80-96); MEAN PLT VOLUME 9.3 fl (7.5-11.1); PLATELET COUNT 289 10^3/uL (134-434); RBC 3.91 M/mm3 (4.00-5.60); WHITE BLOOD COUNT 14.1 K/mm3 (4.0-10.0)
[2023-08-31] MEDS ORDERED: SODIUM CHLORIDE 250 ML IV ONE (11:00)
[2023-08-31 11:07] LABS: POTASSIUM 4.3 mmol/L (3.5-5.1)
[2023-08-31 11:09] LABS: BLOOD UREA NITROGEN 16.1 mg/dL (7-18)
[2023-08-31 11:10] LABS: ALBUMIN 3.2 g/dl (3.4-5.0); MAGNESIUM 2.4 mg/dL (1.8-2.4)
[2023-08-31 11:12] LABS: BILIRUBIN,DIRECT 0.1 mg/dL (0.0-0.2)
[2023-08-31 11:13] LABS: CREATININE 0.9 mg/dL (0.55-1.3); PHOSPHOROUS 3.1 mg/dL (2.5-4.9)
[2023-08-31 11:14] LABS: BILIRUBIN,TOTAL 0.3 mg/dL (0.2-1); TOT PROT 6.4 g/dl (6.4-8.2)
[2023-08-31 11:43] LABS: ANISOCYTOSIS 3+; MACROCYTOSIS 0; OVALOCYTE 1+; TARGET CELLS 1+; TEAR DROP CELLS 1+
[2023-08-31 16:21] VITALS: BP 136/85; PULSE 85; RESP 18; TEMP 97.9
[2023-08-31] MEDS ORDERED: PORTA CATH FLUSH 10 ML IVPUSH PRN (16:21)
== END 2023-08-31 15:15 | disposition home or self-care (01) ==
LOC: JONCCHEMO 09:35 → J7W 09:35 → JONCCHEMO 15:15
PROVIDERS: ATTEND Internal Medicine Hematology & Oncology
DX: Z51.11 Encounter for antineoplastic chemotherapy (principal); C61 Malignant neoplasm of prostate; C79.51 Secondary malignant neoplasm of bone; C79.52 Secondary malignant neoplasm of bone marrow
CPT/HCPCS: 36415; 80048; 80076; 83735; 84100; 84153; 84402; 84403; 85025; 96375; 96413

== ENCOUNTER 2023-09-01 11:48 | Day surgery (SDC) | payer OTHER ==
[~2023-09-01 11:48] MED LIST changes: -DEXAMETHASONE SODIUM PHOSPHATE 10 MG in SODIUM CHLORIDE 50 ML IVPB ONE; -GRANISETRON HCL/PF 1 MG in SODIUM CHLORIDE 50 ML IVPB ONE; +PEGFILGRASTIM-CBQV (UDENYCA) 6 MG/0.6 ML SYRINGE SQ ONE; -SODIUM CHLORIDE 250 ML IV ONE
[2023-09-01 18:15] VITALS: BP 123/77; PULSE 80; RESP 20; TEMP 97.1
== END 2023-09-01 12:05 | disposition home or self-care (01) ==
LOC: JONCCHEMO 11:48 → J7W 11:48 → JONCCHEMO 12:05
PROVIDERS: ATTEND Internal Medicine Hematology & Oncology
PROC: 3E013GC Introduction of Other Therapeutic Substance into Subcutaneous Tissue, Percutaneous Approach (ICD-10-PCS; principal; 2023-09-01)
DX: C61 Malignant neoplasm of prostate (principal); C79.51 Secondary malignant neoplasm of bone; C79.52 Secondary malignant neoplasm of bone marrow
CPT/HCPCS: 96372; Q5111

== ENCOUNTER 2023-09-21 09:48 | Day surgery (SDC) | payer OTHER ==
[2023-09-21] MEDS ORDERED: DENOSUMAB 120 MG/1.7 ML VIAL SQ ONE (10:00)
[2023-09-21 12:29] VITALS: BP 126/88; PULSE 88; RESP 20; TEMP 97.9
== END 2023-09-21 10:20 | disposition home or self-care (01) ==
LOC: JONCCHEMO 09:48 → J7W 09:51 → JONCCHEMO 10:20
PROVIDERS: ATTEND Internal Medicine Hematology & Oncology
PROC: 3E013GC Introduction of Other Therapeutic Substance into Subcutaneous Tissue, Percutaneous Approach (ICD-10-PCS; principal; 2023-09-21)
DX: C61 Malignant neoplasm of prostate (principal); C79.51 Secondary malignant neoplasm of bone; C79.52 Secondary malignant neoplasm of bone marrow
CPT/HCPCS: 96372; J0897

== ENCOUNTER 2023-09-23 22:39 | Emergency (ER) | payer OTHER ==
[2023-09-23 22:46] VITALS: TEMP 97.9; BMI 27.6
[2023-09-23] MEDS ORDERED: HYDROmorphone HCl 2 MG/ML VIAL IVPUSH STA (23:18)
[2023-09-23] MEDS ORDERED: HYDROmorphone HCl 2 MG/ML VIAL ONE (23:51)
[2023-09-23 23:56] LABS: HEMATOCRIT 32.3 % (35.4-49); HEMOGLOBIN 10.1 GM/dL (11.7-16.9); MCH 24.8 pg (25.7-33.7); MCHC 31.1 g/dl (32.0-35.9); MEAN CELL VOLUME 79.7 fl (80-96); MEAN PLT VOLUME 8.1 fl (7.5-11.1); PLATELET COUNT 259 10^3/uL (134-434); RBC 4.06 M/mm3 (4.00-5.60); RDW 27.1 % (11.9-15.9); WHITE BLOOD COUNT 10.5 K/mm3 (4.0-10.0)
[2023-09-24 00:18] LABS: BLOOD UREA NITROGEN 9.5 mg/dL (7-18); CALCIUM 7.9 mg/dL (8.5-10.1)
[2023-09-24 00:19] LABS: ALBUMIN 3.2 g/dl (3.4-5.0)
[2023-09-24 00:23] LABS: BILIRUBIN,TOTAL 0.3 mg/dL (0.2-1); TOT PROT 6.3 g/dl (6.4-8.2)
[2023-09-24] MEDS ORDERED: HYDROmorphone HCl 2 MG/ML VIAL IVPUSH ONE (00:29)
[2023-09-24] MEDS ORDERED: HYDROmorphone HCl 2 MG/ML VIAL ONE (00:36)
[2023-09-24 01:39] VITALS: BP 152/69; PULSE 85; RESP 17
== END 2023-09-24 01:40 | disposition home or self-care (01) ==
LOC: JER 22:39
PROC: 3E033GC Introduction of Other Therapeutic Substance into Peripheral Vein, Percutaneous Approach (ICD-10-PCS; principal; 2023-09-23)
PROC: 3E033GC Introduction of Other Therapeutic Substance into Peripheral Vein, Percutaneous Approach (ICD-10-PCS; 2023-09-24)
DX: M54.50 Low back pain, unspecified (principal); G89.29 Other chronic pain
CPT/HCPCS: 36415; 80053; 85027; 99284-25

== ENCOUNTER 2023-09-24 08:53 | Inpatient (IN) | payer OTHER ==
[2023-09-24 09:01] VITALS: BMI 27.6
[2023-09-24] MEDS ORDERED: morphine CARPU-JECT 2 MG/1 ML DISP.SYRIN IVPUSH ONE (11:00)
[2023-09-24] MEDS ORDERED: DOCUSATE SODIUM 100 MG CAPSULE (FP) PO ONE ×2 (11:00→11:57)
[2023-09-24 11:10] LABS: BASO % 0.4 % (0-2.0); EOS % 0.1 % (0-4.5); HEMATOCRIT 33.4 % (35.4-49); HEMOGLOBIN 10.2 GM/dL (11.7-16.9); LYMPH % 11.4 % (8-40); MCH 24.2 pg (25.7-33.7); MCHC 30.5 g/dl (32.0-35.9); MEAN CELL VOLUME 79.6 fl (80-96); MEAN PLT VOLUME 8.4 fl (7.5-11.1); MONO % 3.7 % (3.8-10.2); NEUT % 84.4 % (42.8-82.8); PLATELET COUNT 291 10^3/uL (134-434); RBC 4.19 M/mm3 (4.00-5.60); WHITE BLOOD COUNT 14.1 K/mm3 (4.0-10.0)
[2023-09-24 11:19] LABS: POTASSIUM 4.5 mmol/L (3.5-5.1)
[2023-09-24 11:20] LABS: CALCIUM 8.4 mg/dL (8.5-10.1)
[2023-09-24 11:21] LABS: BLOOD UREA NITROGEN 12.6 mg/dL (7-18)
[2023-09-24 11:24] LABS: CREATININE 0.9 mg/dL (0.55-1.3)
[2023-09-24 12:23] LABS: ANISOCYTOSIS 2+; MACROCYTOSIS 0
[2023-09-24] MEDS ORDERED: HYDROmorphone HCl 2 MG/ML VIAL IVPUSH ONE (13:05)
[2023-09-24] MEDS ORDERED: FENTANYL PATCH WASTE TD PRN (13:09)
[2023-09-24] MEDS ORDERED: fentaNYL 25mcg/hr PATCH.TD72 TD SCH (13:15)
[2023-09-24] MEDS ORDERED: HYDROmorphone HCl 2 MG/ML VIAL ONE (14:07)
[2023-09-24] MEDS ORDERED: morphine SO4 SUSTAINED ACTING 15 MG TABLET.SA ONE (18:29)
[2023-09-24] MEDS: morphine SO4 SUSTAINED ACTING 15 MG TABLET.SA PO SCH (18:33)
[2023-09-24] MEDS ORDERED: TAMSULOSIN HCL 0.4 MG CAP ONE (22:17)
[2023-09-24] MEDS ORDERED: HEPARIN NA (PORCINE) 5,000 UNITS/ML 1ML VIAL ONE (22:17)
[2023-09-24] MEDS: HEPARIN NA (PORCINE) 5,000 UNITS/ML 1ML VIAL SQ SCH (22:23)
[2023-09-24] MEDS: TAMSULOSIN HCL 0.4 MG CAP PO SCH (22:23)
[2023-09-25] MEDS: morphine SO4 SUSTAINED ACTING 15 MG TABLET.SA PO SCH ×2 (04:20→16:01)
[2023-09-25] MEDS: ACETAMINOPHEN 1000 MG/100 ML BAG IVPB PRN ×2 (09:40→20:33)
[2023-09-25] MEDS: HEPARIN NA (PORCINE) 5,000 UNITS/ML 1ML VIAL SQ SCH ×2 (09:41→21:20)
[2023-09-25] MEDS: PANTOPRAZOLE 40 MG TABLET PO SCH (09:41)
[2023-09-25] MEDS: POLYETHYLENE GLYCOL (HEALTHYLAX) 3350 17 GM PACKET PO SCH ×2 (09:41→09:45)
[2023-09-25] MEDS ORDERED: VANCOMYCIN/WATER FOR INJ (PEG) 1,000 MG/200 ML BAG IVPB ONE (10:00)
[2023-09-25] MEDS ORDERED: PIPERACILLIN/TAZOB 3.375 GM 3.375 GM in DEXTROSE 5%-WATER - 50 ML IVPB SCH ×3 (10:00)
[2023-09-25 10:52] LABS: EPI CELLS 20 /uL (0-25.1); HYALINE CASTS 0 /uL (0-3.1); URINE APPEARANCE CLEAR; URINE BACTERIA 7 /uL (0-1359); URINE BILIRUBIN NEGATIVE (NEGATIVE); URINE COLOR YELLOW; URINE GLUCOSE (UA) NEGATIVE (NEGATIVE); URINE KETONE TRACE (NEGATIVE); URINE LEUK ESTERASE NEGATIVE (NEGATIVE); URINE NITRITE NEGATIVE (NEGATIVE); URINE PROTEIN 1+ (NEGATIVE); URINE RBC 67 /uL (0-23.9); URINE UROBILINOGEN 0.2 mg/dL (0.2-1.0); URINE WBC 25 /uL (0-25.8)
[2023-09-25] MEDS: NYSTATIN 500,000 UNITS/5 ML SUSPENSION PO SCH ×2 (11:51→17:23)
[2023-09-25] MEDS: PIPERACILLIN/TAZOB 3.375 GM 3.375 GM in DEXTROSE 5%-WATER - 50 ML IVPB SCH (17:06)
[2023-09-25] MEDS: HYDROmorphone HCl 2 MG/ML VIAL IVPUSH PRN (17:06)
[2023-09-25] MEDS: TAMSULOSIN HCL 0.4 MG CAP PO SCH (21:20)
[2023-09-26] MEDS: HYDROmorphone HCl 2 MG/ML VIAL IVPUSH PRN ×3 (00:02→23:26)
[2023-09-26] MEDS: NYSTATIN 500,000 UNITS/5 ML SUSPENSION PO SCH ×4 (00:02→17:13)
[2023-09-26] MEDS: PIPERACILLIN/TAZOB 3.375 GM 3.375 GM in DEXTROSE 5%-WATER - 50 ML IVPB SCH ×3 (01:16→17:13)
[2023-09-26] MEDS: morphine SO4 SUSTAINED ACTING 15 MG TABLET.SA PO SCH ×2 (05:18→16:47)
[2023-09-26] MEDS: ACETAMINOPHEN 1000 MG/100 ML BAG IVPB PRN (06:18)
[2023-09-26] MEDS: POLYETHYLENE GLYCOL (HEALTHYLAX) 3350 17 GM PACKET PO SCH (09:21)
[2023-09-26] MEDS: PANTOPRAZOLE 40 MG TABLET PO SCH (09:21)
[2023-09-26] MEDS: HEPARIN NA (PORCINE) 5,000 UNITS/ML 1ML VIAL SQ SCH ×2 (09:21→21:31)
[2023-09-26] MEDS ORDERED: FENTANYL PATCH WASTE TD PRN (11:03)
[2023-09-26] MEDS: fentaNYL 25mcg/hr PATCH.TD72 TD SCH (11:32)
[2023-09-26] MEDS ORDERED: ACETAMINOPHEN 1000 MG/100 ML BAG IVPB ONE (20:47)
[2023-09-26] MEDS: traZODone HCL 50 MG TABLET (FP) PO PRN (21:31)
[2023-09-26] MEDS: TAMSULOSIN HCL 0.4 MG CAP PO SCH (21:31)
[2023-09-27] MEDS: NYSTATIN 500,000 UNITS/5 ML SUSPENSION PO SCH ×4 (01:00→17:50)
[2023-09-27] MEDS: PIPERACILLIN/TAZOB 3.375 GM 3.375 GM in DEXTROSE 5%-WATER - 50 ML IVPB SCH ×3 (01:00→17:50)
[2023-09-27 01:30] LABS: EPI CELLS 17 /uL (0-25.1); HYALINE CASTS 0 /uL (0-3.1); PH,URINE 7.5 (5.0-8.0); URINE APPEARANCE CLEAR; URINE BACTERIA 1 /uL (0-1359); URINE BILIRUBIN NEGATIVE (NEGATIVE); URINE COLOR YELLOW; URINE GLUCOSE (UA) NEGATIVE (NEGATIVE); URINE KETONE NEGATIVE (NEGATIVE); URINE LEUK ESTERASE NEGATIVE (NEGATIVE); URINE NITRITE NEGATIVE (NEGATIVE); URINE PROTEIN 2+ (NEGATIVE); URINE RBC 148 /uL (0-23.9); URINE UROBILINOGEN 0.2 mg/dL (0.2-1.0); URINE WBC 12 /uL (0-25.8)
[2023-09-27] MEDS: morphine SO4 SUSTAINED ACTING 15 MG TABLET.SA PO SCH ×2 (05:37→17:49)
[2023-09-27] MEDS: HEPARIN NA (PORCINE) 5,000 UNITS/ML 1ML VIAL SQ SCH ×2 (09:14→21:14)
[2023-09-27] MEDS: PANTOPRAZOLE 40 MG TABLET PO SCH (09:14)
[2023-09-27] MEDS: POLYETHYLENE GLYCOL (HEALTHYLAX) 3350 17 GM PACKET PO SCH (09:14)
[2023-09-27 09:37] LABS: BASO % 0.3 % (0-2.0); EOS % 0.4 % (0-4.5); HEMATOCRIT 28.4 % (35.4-49); LYMPH % 5.1 % (8-40); MCH 24.9 pg (25.7-33.7); MCHC 31.7 g/dl (32.0-35.9); MEAN CELL VOLUME 78.6 fl (80-96); MEAN PLT VOLUME 8.6 fl (7.5-11.1); MONO % 7.8 % (3.8-10.2); NEUT % 86.4 % (42.8-82.8); PLATELET COUNT 262 10^3/uL (134-434); RBC 3.61 M/mm3 (4.00-5.60); RDW 26.9 % (11.9-15.9)
[2023-09-27 09:41] LABS: POTASSIUM 4.1 mmol/L (3.5-5.1)
[2023-09-27 09:44] LABS: ALBUMIN 2.6 g/dl (3.4-5.0)
[2023-09-27 09:46] LABS: CALCIUM 7.3 mg/dL (8.5-10.1)
[2023-09-27 09:51] LABS: TOT PROT 5.8 g/dl (6.4-8.2)
[2023-09-27 09:52] LABS: BILIRUBIN,TOTAL 0.4 mg/dL (0.2-1)
[2023-09-27] MEDS: TAMSULOSIN HCL 0.4 MG CAP PO SCH (21:14)
[2023-09-28] MEDS: traZODone HCL 50 MG TABLET (FP) PO PRN ×2 (01:38→22:01)
[2023-09-28] MEDS: NYSTATIN 500,000 UNITS/5 ML SUSPENSION PO SCH ×4 (01:38→17:08)
[2023-09-28] MEDS: HYDROmorphone HCl 2 MG/ML VIAL IVPUSH PRN ×2 (01:38→10:22)
[2023-09-28] MEDS: PIPERACILLIN/TAZOB 3.375 GM 3.375 GM in DEXTROSE 5%-WATER - 50 ML IVPB SCH ×3 (01:39→17:08)
[2023-09-28 04:10] VITALS: RESP 18
[2023-09-28] MEDS: morphine SO4 SUSTAINED ACTING 15 MG TABLET.SA PO SCH (06:17)
[2023-09-28] MEDS: POLYETHYLENE GLYCOL (HEALTHYLAX) 3350 17 GM PACKET PO SCH ×2 (09:55→10:00)
[2023-09-28] MEDS: HEPARIN NA (PORCINE) 5,000 UNITS/ML 1ML VIAL SQ SCH ×2 (09:56→22:01)
[2023-09-28] MEDS: PANTOPRAZOLE 40 MG TABLET PO SCH (09:56)
[2023-09-28] MEDS: morphine SO4 SUSTAINED ACTING 30 MG TABLET.SA PO SCH (19:34)
[2023-09-28] MEDS: TAMSULOSIN HCL 0.4 MG CAP PO SCH (22:01)
[2023-09-29] MEDS: PIPERACILLIN/TAZOB 3.375 GM 3.375 GM in DEXTROSE 5%-WATER - 50 ML IVPB SCH ×3 (01:02→17:44)
[2023-09-29] MEDS: NYSTATIN 500,000 UNITS/5 ML SUSPENSION PO SCH ×4 (01:02→17:44)
[2023-09-29] MEDS: morphine SO4 SUSTAINED ACTING 30 MG TABLET.SA PO SCH ×2 (05:55→17:44)
[2023-09-29] MEDS: HEPARIN NA (PORCINE) 5,000 UNITS/ML 1ML VIAL SQ SCH ×2 (09:25→22:34)
[2023-09-29] MEDS: PANTOPRAZOLE 40 MG TABLET PO SCH (09:25)
[2023-09-29] MEDS: POLYETHYLENE GLYCOL (HEALTHYLAX) 3350 17 GM PACKET PO SCH (09:26)
[2023-09-29] MEDS: fentaNYL 25mcg/hr PATCH.TD72 TD SCH (10:23)
[2023-09-29] MEDS: TAMSULOSIN HCL 0.4 MG CAP PO SCH (22:34)
[2023-09-30] MEDS: traZODone HCL 50 MG TABLET (FP) PO PRN (01:07)
[2023-09-30] MEDS: PIPERACILLIN/TAZOB 3.375 GM 3.375 GM in DEXTROSE 5%-WATER - 50 ML IVPB SCH ×3 (01:08→17:44)
[2023-09-30] MEDS: NYSTATIN 500,000 UNITS/5 ML SUSPENSION PO SCH ×4 (01:08→17:44)
[2023-09-30] MEDS ORDERED: DOCUSATE SODIUM 100 MG CAPSULE (FP) PO ONE (05:35)
[2023-09-30] MEDS: morphine SO4 SUSTAINED ACTING 30 MG TABLET.SA PO SCH ×2 (06:00→17:45)
[2023-09-30] MEDS: POLYETHYLENE GLYCOL (HEALTHYLAX) 3350 17 GM PACKET PO SCH (10:05)
[2023-09-30] MEDS: PANTOPRAZOLE 40 MG TABLET PO SCH (10:05)
[2023-09-30] MEDS: HEPARIN NA (PORCINE) 5,000 UNITS/ML 1ML VIAL SQ SCH ×2 (10:05→22:06)
[2023-09-30] MEDS ORDERED: FENTANYL PATCH WASTE TD PRN (10:58)
[2023-09-30] MEDS ORDERED: fentaNYL 50mcg/hr PATCH.TD72 TD SCH (11:00)
[2023-09-30] MEDS ORDERED: SENNOSIDES 8.6MG TABLET (FP) PO PRN (21:46)
[2023-09-30] MEDS: TAMSULOSIN HCL 0.4 MG CAP PO SCH (22:06)
[2023-10-01] MEDS: NYSTATIN 500,000 UNITS/5 ML SUSPENSION PO SCH ×5 (00:25→23:43)
[2023-10-01] MEDS: PIPERACILLIN/TAZOB 3.375 GM 3.375 GM in DEXTROSE 5%-WATER - 50 ML IVPB SCH ×2 (01:57→09:40)
[2023-10-01] MEDS: morphine SO4 SUSTAINED ACTING 30 MG TABLET.SA PO SCH ×2 (06:25→17:10)
[2023-10-01] MEDS: PANTOPRAZOLE 40 MG TABLET PO SCH (09:40)
[2023-10-01] MEDS: HEPARIN NA (PORCINE) 5,000 UNITS/ML 1ML VIAL SQ SCH ×2 (09:41→22:24)
[2023-10-01] MEDS: POLYETHYLENE GLYCOL (HEALTHYLAX) 3350 17 GM PACKET PO SCH (09:41)
[2023-10-01] MEDS ORDERED: MAGNESIUM HYDROX 2400MG/30ML ORAL SUSPENSION 30 ML CUP PO ONE (10:59)
[2023-10-01] MEDS: TAMSULOSIN HCL 0.4 MG CAP PO SCH (22:23)
[2023-10-02] MEDS: morphine SO4 SUSTAINED ACTING 30 MG TABLET.SA PO SCH (06:16)
[2023-10-02] MEDS: NYSTATIN 500,000 UNITS/5 ML SUSPENSION PO SCH ×2 (06:17→12:02)
[2023-10-02] MEDS: POLYETHYLENE GLYCOL (HEALTHYLAX) 3350 17 GM PACKET PO SCH (10:01)
[2023-10-02] MEDS: HEPARIN NA (PORCINE) 5,000 UNITS/ML 1ML VIAL SQ SCH (10:01)
[2023-10-02] MEDS: PANTOPRAZOLE 40 MG TABLET PO SCH (10:01)
[2023-10-02 14:28] VITALS: BP 110/75; PULSE 95; TEMP 98.4
== END 2023-10-02 17:08 | disposition home or self-care (01) | DRG 343 ==
LOC: JER 08:53 → JERBED 12:30 → J5S 09-25 03:36 → OBSVTOIN 09-25 12:51
PROVIDERS: ADMIT Internal Medicine; ATTEND Internal Medicine
DX: C79.51 Secondary malignant neoplasm of bone (principal); C61 Malignant neoplasm of prostate; I10 Essential (primary) hypertension; N13.30 Unspecified hydronephrosis; R50.9 Fever, unspecified; R33.9 Retention of urine, unspecified
CPT/HCPCS: 36415; 71046-TC-FY; 72132-TC; 76775-TC; 76856-TC; 80048; 80053; 81003; 85025; 85027; 87040; 87086; 93005; 93010; 99284-25; 99285-25; G0378; J1644

== ENCOUNTER 2023-10-14 19:14 | Observation (INO) | payer OTHER ==
[2023-10-14] MEDS ORDERED: HYDROmorphone HCL 2 MG TABLET PO ONE (20:40)
[2023-10-14] MEDS ORDERED: HYDROmorphone HCL 2 MG TABLET ONE (20:59)
[2023-10-14] MEDS ORDERED: HYDROmorphone HCl 2 MG/ML VIAL IVPUSH ONE ×4 (21:03→23:42)
[2023-10-14] MEDS ORDERED: HYDROmorphone HCl 2 MG/ML VIAL ONE ×4 (21:25→23:44)
[2023-10-14 21:41] LABS: HEMOGLOBIN 10.3 GM/dL (11.7-16.9); MCH 24.4 pg (25.7-33.7); MCHC 31.1 g/dl (32.0-35.9); MEAN CELL VOLUME 78.4 fl (80-96); MEAN PLT VOLUME 8.5 fl (7.5-11.1); PLATELET COUNT 361 10^3/uL (134-434); RBC 4.21 M/mm3 (4.00-5.60); RDW 27.5 % (11.9-15.9); WHITE BLOOD COUNT 11.1 K/mm3 (4.0-10.0)
[2023-10-14 21:49] LABS: POTASSIUM 4.4 mmol/L (3.5-5.1)
[2023-10-14 21:51] LABS: ALBUMIN 3.4 g/dl (3.4-5.0); CALCIUM 9.2 mg/dL (8.5-10.1)
[2023-10-14 21:52] LABS: BLOOD UREA NITROGEN 12.4 mg/dL (7-18)
[2023-10-14 21:54] LABS: CREATININE 0.9 mg/dL (0.55-1.3)
[2023-10-14 21:56] LABS: BILIRUBIN,TOTAL 0.3 mg/dL (0.2-1); TOT PROT 7.6 g/dl (6.4-8.2)
[2023-10-14 21:57] LABS: EPI CELLS 9 /uL (0-25.1); HYALINE CASTS 1 /uL (0-3.1); PH,URINE 5.5 (5.0-8.0); URINE APPEARANCE CLEAR; URINE BACTERIA 3 /uL (0-1359); URINE BILIRUBIN NEGATIVE (NEGATIVE); URINE COLOR YELLOW; URINE GLUCOSE (UA) NEGATIVE (NEGATIVE); URINE KETONE NEGATIVE (NEGATIVE); URINE LEUK ESTERASE TRACE (NEGATIVE); URINE NITRITE NEGATIVE (NEGATIVE); URINE PROTEIN NEGATIVE (NEGATIVE); URINE RBC 3 /uL (0-23.9); URINE UROBILINOGEN 0.2 mg/dL (0.2-1.0); URINE WBC 10 /uL (0-25.8)
[2023-10-14 22:41] LABS: ANISOCYTOSIS 2+; MACROCYTOSIS 1+; OVALOCYTE 1+; TARGET CELLS 2+; TEAR DROP CELLS 1+
[2023-10-14 22:42] LABS: PLATELET ESTIMATE ADEQUATE
[2023-10-15] MEDS ORDERED: BISACODYL 10 MG SUPP.RECT PR PRN (02:05)
[2023-10-15] MEDS ORDERED: HYDROmorphone HCl 2 MG/ML VIAL ONE (02:47)
[2023-10-15] MEDS: HYDROmorphone HCl 2 MG/ML VIAL IVPUSH PRN ×3 (02:53→16:30)
[2023-10-15 06:32] LABS: HEMATOCRIT 31.4 % (35.4-49); HEMOGLOBIN 9.6 GM/dL (11.7-16.9); LYMPH % 4.3 % (8-40); MCH 23.8 pg (25.7-33.7); MCHC 30.6 g/dl (32.0-35.9); MEAN CELL VOLUME 77.7 fl (80-96); MEAN PLT VOLUME 8.4 fl (7.5-11.1); MONO % 18.2 % (3.8-10.2); NEUT % 76.5 % (42.8-82.8); PLATELET COUNT 354 10^3/uL (134-434); RBC 4.04 M/mm3 (4.00-5.60); RDW 26.5 % (11.9-15.9); WHITE BLOOD COUNT 11.9 K/mm3 (4.0-10.0)
[2023-10-15 06:40] LABS: POTASSIUM 4.8 mmol/L (3.5-5.1)
[2023-10-15 06:42] LABS: CALCIUM 8.1 mg/dL (8.5-10.1)
[2023-10-15 06:43] LABS: BLOOD UREA NITROGEN 14.9 mg/dL (7-18)
[2023-10-15 06:46] LABS: CREATININE 0.9 mg/dL (0.55-1.3)
[2023-10-15] MEDS ORDERED: PANTOPRAZOLE 40 MG TABLET PO ONE (06:52)
[2023-10-15] MEDS: PANTOPRAZOLE 40 MG TABLET PO SCH (07:00)
[2023-10-15] MEDS: TAMSULOSIN HCL 0.4 MG CAP PO SCH (09:16)
[2023-10-15 11:33] VITALS: RESP 18
[2023-10-15] MEDS: predniSONE 20 MG TABLET (UD) PO SCH ×2 (12:59→21:54)
[2023-10-15] MEDS: oxyCODONE HCL 5 MG TABLET PO SCH ×2 (12:59→20:11)
[2023-10-15] MEDS: NYSTATIN 500,000 UNITS/5 ML SUSPENSION PO SCH (17:28)
[2023-10-15 18:50] VITALS: BMI 26.6
[2023-10-15] MEDS ORDERED: traZODone HCL 50 MG TABLET (FP) PO PRN (22:00)
[2023-10-16] MEDS: HYDROmorphone HCl 2 MG/ML VIAL IVPUSH PRN (01:02)
[2023-10-16] MEDS: NYSTATIN 500,000 UNITS/5 ML SUSPENSION PO SCH ×2 (01:02→05:40)
[2023-10-16] MEDS: oxyCODONE HCL 5 MG TABLET PO SCH (05:34)
[2023-10-16] MEDS: predniSONE 20 MG TABLET (UD) PO SCH (05:35)
[2023-10-16] MEDS ORDERED: FENTANYL PATCH WASTE TD PRN (05:47)
[2023-10-16] MEDS ORDERED: fentaNYL 50mcg/hr PATCH.TD72 TD SCH (06:00)
[2023-10-16] MEDS: PANTOPRAZOLE 40 MG TABLET PO SCH (06:03)
[2023-10-16] MEDS: TAMSULOSIN HCL 0.4 MG CAP PO SCH (08:51)
[2023-10-16 10:21] VITALS: BP 131/83; PULSE 79; TEMP 97.9
== END 2023-10-16 13:45 | disposition home or self-care (01) ==
LOC: JER 19:14 → JERBED 10-15 01:37 → J7W 10-15 08:02
PROVIDERS: ADMIT Internal Medicine; ATTEND Internal Medicine
PROC: 3E033NZ Introduction of Analgesics, Hypnotics, Sedatives into Peripheral Vein, Percutaneous Approach (ICD-10-PCS; principal; 2023-10-15)
DX: M54.9 Dorsalgia, unspecified (principal); C61 Malignant neoplasm of prostate; C79.51 Secondary malignant neoplasm of bone; I10 Essential (primary) hypertension; E78.5 Hyperlipidemia, unspecified; Z91.013 Allergy to seafood
CPT/HCPCS: 36415; 80048; 80053; 81003; 82962; 85025; 87086; 96374; 96376; 99285-25; G0378

== ENCOUNTER 2023-10-19 11:05 | Day surgery (SDC) | payer OTHER ==
[2023-10-19] MEDS: DENOSUMAB 120 MG/1.7 ML VIAL SQ ONE (11:16)
[2023-10-19 15:03] VITALS: BP 133/85; PULSE 74; RESP 18; TEMP 97.8
== END 2023-10-19 11:30 | disposition home or self-care (01) ==
LOC: JONCCHEMO 11:05 → J7W 11:08 → JONCCHEMO 11:30
PROVIDERS: ATTEND Internal Medicine Hematology & Oncology
PROC: 3E013GC Introduction of Other Therapeutic Substance into Subcutaneous Tissue, Percutaneous Approach (ICD-10-PCS; principal; 2023-10-19)
DX: C61 Malignant neoplasm of prostate (principal); Z76.89 Persons encountering health services in other specified circumstances
CPT/HCPCS: 96372; J0897

== ENCOUNTER 2023-11-08 22:17 | Inpatient (IN) | payer OTHER ==
[2023-11-08] MEDS ORDERED: HYDROmorphone HCl 2 MG/ML VIAL ONE ×2 (22:52→23:10)
[2023-11-08] MEDS: HYDROmorphone HCl 2 MG/ML VIAL IVPUSH ONE (23:01)
[2023-11-08 23:05] LABS: HEMATOCRIT 35.5 % (35.4-49); HEMOGLOBIN 11.2 GM/dL (11.7-16.9); MCH 25.1 pg (25.7-33.7); MCHC 31.5 g/dl (32.0-35.9); MEAN CELL VOLUME 79.7 fl (80-96); PLATELET COUNT 244 10^3/uL (134-434); RBC 4.46 M/mm3 (4.00-5.60); RDW 28.1 % (11.9-15.9); WHITE BLOOD COUNT 6.7 K/mm3 (4.0-10.0)
[2023-11-08] MEDS: HYDROmorphone HCl 2 MG/ML VIAL IVPB ONE (23:14)
[2023-11-08] MEDS: SODIUM CHLORIDE 0.9% 500 ML INFUS.BAG IV ONE (23:15)
[2023-11-08 23:24] LABS: POTASSIUM 4.1 mmol/L (3.5-5.1)
[2023-11-08 23:26] LABS: ALBUMIN 3.3 g/dl (3.4-5.0); CALCIUM 9.5 mg/dL (8.5-10.1)
[2023-11-08 23:27] LABS: BLOOD UREA NITROGEN 23.1 mg/dL (7-18)
[2023-11-08 23:29] LABS: CREATININE 1.1 mg/dL (0.55-1.3)
[2023-11-08 23:31] LABS: BILIRUBIN,TOTAL 0.3 mg/dL (0.2-1); TOT PROT 6.6 g/dl (6.4-8.2)
[2023-11-08 23:58] LABS: ANISOCYTOSIS 1+; MACROCYTOSIS 0; OVALOCYTE 1+; PLATELET ESTIMATE NORMAL; TEAR DROP CELLS 1+
[2023-11-09 00:59] LABS: EPI CELLS 13 /uL (0-25.1); HYALINE CASTS 0 /uL (0-3.1); URINE APPEARANCE CLEAR; URINE BACTERIA 11 /uL (0-1359); URINE BILIRUBIN NEGATIVE (NEGATIVE); URINE COLOR YELLOW; URINE GLUCOSE (UA) NEGATIVE (NEGATIVE); URINE KETONE NEGATIVE (NEGATIVE); URINE LEUK ESTERASE TRACE (NEGATIVE); URINE NITRITE NEGATIVE (NEGATIVE); URINE PROTEIN TRACE (NEGATIVE); URINE RBC 92 /uL (0-23.9); URINE UROBILINOGEN 0.2 mg/dL (0.2-1.0); URINE WBC 17 /uL (0-25.8)
[2023-11-09] MEDS ORDERED: HYDROmorphone HCl 2 MG/ML VIAL ONE ×2 (03:53→10:15)
[2023-11-09] MEDS: HYDROmorphone HCl 2 MG/ML VIAL IVPUSH PRN (03:56)
[2023-11-09] MEDS ORDERED: predniSONE 20 MG TABLET (UD) PO SCH ×2 (06:00→10:00)
[2023-11-09] MEDS ORDERED: TAMSULOSIN HCL 0.4 MG CAP ONE (08:01)
[2023-11-09] MEDS ORDERED: predniSONE 20 MG TABLET (UD) ONE (08:01)
[2023-11-09] MEDS ORDERED: PANTOPRAZOLE 40 MG TABLET PO ONE (08:02)
[2023-11-09] MEDS: TAMSULOSIN HCL 0.4 MG CAP PO SCH (08:14)
[2023-11-09] MEDS: PANTOPRAZOLE 40 MG TABLET PO SCH (08:14)
[2023-11-09] MEDS: predniSONE 20 MG TABLET (UD) PO SCH (08:14)
[2023-11-09] MEDS ORDERED: oxyCODONE HCL 5 MG TABLET PO PRN (09:51)
[2023-11-09] MEDS ORDERED: morphine SO4 SUSTAINED ACTING 30 MG TABLET.SA PO ONE (10:11)
[2023-11-09] MEDS ORDERED: HEPARIN NA (PORCINE) 5,000 UNITS/ML 1ML VIAL ONE (10:11)
[2023-11-09] MEDS: HEPARIN NA (PORCINE) 5,000 UNITS/ML 1ML VIAL SQ SCH (10:18)
[2023-11-09] MEDS ORDERED: PATIENT'S OWN MEDICATION (NON-FORMULARY) (Mirabegron [Myrbetriq] 25 MG Tab.Er.24h) PO SCH (22:00)
[2023-11-09] MEDS: traZODone HCL 50 MG TABLET (FP) PO PRN (22:13)
[2023-11-09] MEDS: HYDROmorphone HCl 2 MG/ML VIAL IVPB PRN (23:52)
[2023-11-10 00:46] VITALS: BMI 25.5
[2023-11-10] MEDS: oxyCODONE HCL 5 MG TABLET PO ONE (02:50)
[2023-11-10] MEDS: ACETAMINOPHEN 325 MG TABLET (FP) PO PRN (06:52)
[2023-11-10] MEDS: fentaNYL 50mcg/hr PATCH.TD72 TD SCH (09:09)
[2023-11-10] MEDS: FENTANYL PATCH WASTE TD PRN (09:11)
[2023-11-10] MEDS: oxyCODONE HCL 5 MG TABLET PO PRN (10:40)
[2023-11-10] MEDS: morphine SO4 SUSTAINED ACTING 30 MG TABLET.SA PO SCH (10:42)
[2023-11-11] MEDS: fentaNYL 75mcg/hr PATCH.TD72 TD SCH (14:04)
[2023-11-11] MEDS: oxyCODONE HCL 5 MG TABLET PO PRN (14:08)
[2023-11-11] MEDS: FENTANYL PATCH WASTE TD PRN (14:12)
[2023-11-12] MEDS: CALCIUM 500MG/VIT-D 200 UNITS COMBO TABLET (FP) PO SCH (11:46)
[2023-11-12 13:28] VITALS: BP 120/83; PULSE 113; RESP 18; TEMP 98.3
[2023-11-12] MEDS: BISACODYL 10 MG SUPP.RECT PR PRN (14:18)
== END 2023-11-12 17:01 | disposition home or self-care (01) | DRG 343 ==
LOC: JER 22:17 → JERBED 11-09 00:17 → OBSVTOIN 11-09 16:09 → J8W 11-09 18:48
PROVIDERS: ADMIT Internal Medicine; ATTEND Internal Medicine
DX: C79.51 Secondary malignant neoplasm of bone (principal); C61 Malignant neoplasm of prostate; I10 Essential (primary) hypertension; E78.5 Hyperlipidemia, unspecified; R50.9 Fever, unspecified; M54.59 Other low back pain; N40.0 Benign prostatic hyperplasia without lower urinary tract symptoms; Z71.89 Other specified counseling
CPT/HCPCS: 36415; 71045-TC-FY; 73700-TC-RT; 80053; 81003; 85025; 87040; 87086; 97116-GP; 97161-GP; 99285-25; G0378; J1644

== ENCOUNTER 2023-11-16 10:52 | Day surgery (SDC) | payer OTHER ==
[2023-11-16] MEDS: DENOSUMAB 120 MG/1.7 ML VIAL SQ ONE (11:19)
[2023-11-16 18:49] VITALS: BP 118/84; PULSE 128; RESP 18; TEMP 98.9
== END 2023-11-16 11:30 | disposition home or self-care (01) ==
LOC: JONCCHEMO 10:52 → J7W 10:54 → JONCCHEMO 11:30
PROVIDERS: ATTEND Internal Medicine Hematology & Oncology
PROC: 3E013GC Introduction of Other Therapeutic Substance into Subcutaneous Tissue, Percutaneous Approach (ICD-10-PCS; principal; 2023-11-16)
DX: C61 Malignant neoplasm of prostate (principal); C79.51 Secondary malignant neoplasm of bone; Z76.89 Persons encountering health services in other specified circumstances
CPT/HCPCS: J0897

== ENCOUNTER 2023-11-18 19:51 | Inpatient (IN) | payer OTHER ==
[2023-11-18 19:57] VITALS: BMI 26.2
[2023-11-18] MEDS ORDERED: HYDROmorphone HCl 2 MG/ML VIAL ONE ×3 (20:44→23:13)
[2023-11-18] MEDS: HYDROmorphone HCl 2 MG/ML VIAL IVPUSH ONE ×3 (20:48→23:20)
[2023-11-18 20:54] LABS: EOS % 0.5 % (0-4.5); HEMATOCRIT 31.5 % (35.4-49); HEMOGLOBIN 10.1 GM/dL (11.7-16.9); LYMPH % 8.7 % (8-40); MCH 25.5 pg (25.7-33.7); MCHC 32.1 g/dl (32.0-35.9); MEAN CELL VOLUME 79.3 fl (80-96); MEAN PLT VOLUME 7.9 fl (7.5-11.1); MONO % 13.6 % (3.8-10.2); NEUT % 76.2 % (42.8-82.8); PLATELET COUNT 323 10^3/uL (134-434); RBC 3.98 M/mm3 (4.00-5.60); RDW 26.6 % (11.9-15.9); WHITE BLOOD COUNT 7.5 K/mm3 (4.0-10.0)
[2023-11-18 21:16] LABS: POTASSIUM 4.8 mmol/L (3.5-5.1)
[2023-11-18 21:18] LABS: BLOOD UREA NITROGEN 10.5 mg/dL (7-18); CALCIUM 8.4 mg/dL (8.5-10.1)
[2023-11-18 21:23] LABS: BILIRUBIN,TOTAL 0.2 mg/dL (0.2-1); TOT PROT 6.8 g/dl (6.4-8.2)
[2023-11-18 21:26] LABS: ANISOCYTOSIS 3+; MACROCYTOSIS 2+; OVALOCYTE 1+
[2023-11-19] MEDS: HYDROmorphone HCl 2 MG/ML VIAL IVPB ONE ×2 (02:43→08:04)
[2023-11-19] MEDS ORDERED: BISACODYL 10 MG SUPP.RECT PR PRN (07:52)
[2023-11-19] MEDS ORDERED: LIDOCAINE HCL 2% JELLY 6 ML TP ONE (08:13)
[2023-11-19] MEDS ORDERED: traZODone HCL 50 MG TABLET (FP) PO PRN (08:33)
[2023-11-19] MEDS ORDERED: FENTANYL PATCH WASTE TD PRN (08:33)
[2023-11-19 09:14] LABS: HEMATOCRIT 30.3 % (35.4-49); HEMOGLOBIN 9.3 GM/dL (11.7-16.9); MCH 24.4 pg (25.7-33.7); MCHC 30.7 g/dl (32.0-35.9); MEAN CELL VOLUME 79.7 fl (80-96); MEAN PLT VOLUME 8.2 fl (7.5-11.1); PLATELET COUNT 315 10^3/uL (134-434); WHITE BLOOD COUNT 5.5 K/mm3 (4.0-10.0)
[2023-11-19 09:36] LABS: POTASSIUM 4.3 mmol/L (3.5-5.1)
[2023-11-19 09:42] LABS: CALCIUM 7.3 mg/dL (8.5-10.1)
[2023-11-19 09:43] LABS: MAGNESIUM 2.2 mg/dL (1.8-2.4)
[2023-11-19 09:45] LABS: CREATININE 0.9 mg/dL (0.55-1.3); PHOSPHOROUS 2.3 mg/dL (2.5-4.9)
[2023-11-19] MEDS: fentaNYL 75mcg/hr PATCH.TD72 TD SCH (09:49)
[2023-11-19] MEDS: SENNOSIDES 8.6MG TABLET (FP) PO SCH (10:04)
[2023-11-19] MEDS: predniSONE 10 MG TABLET (UD) PO SCH (10:04)
[2023-11-19] MEDS: oxyCODONE HCL 5 MG TABLET PO SCH (12:11)
[2023-11-19] MEDS ORDERED: PATIENT'S OWN MEDICATION (NON-FORMULARY) (Mirabegron [Myrbetriq] 25 MG Tab.Er.24h) PO SCH (22:00)
[2023-11-19] MEDS: DOCUSATE SODIUM 100 MG CAPSULE (FP) PO SCH (22:24)
[2023-11-19] MEDS: TAMSULOSIN HCL 0.4 MG CAP PO SCH (22:27)
[2023-11-19] MEDS: ACETAMINOPHEN 325 MG TABLET (FP) PO PRN (22:27)
[2023-11-20] MEDS: PANTOPRAZOLE 40 MG TABLET PO SCH (06:10)
[2023-11-20] MEDS: HEPARIN NA (PORCINE) 5,000 UNITS/ML 1ML VIAL SQ SCH (09:45)
[2023-11-20 11:06] LABS: HEMATOCRIT 29.4 % (35.4-49); MCH 24.2 pg (25.7-33.7); MCHC 30.5 g/dl (32.0-35.9); MEAN CELL VOLUME 79.5 fl (80-96); PLATELET COUNT 316 10^3/uL (134-434); RDW 26.6 % (11.9-15.9); WHITE BLOOD COUNT 5.6 K/mm3 (4.0-10.0)
[2023-11-20 11:20] LABS: POTASSIUM 4.4 mmol/L (3.5-5.1)
[2023-11-20 11:33] LABS: ALBUMIN 2.5 g/dl (3.4-5.0); BLOOD UREA NITROGEN 8.6 mg/dL (7-18); CALCIUM 7.5 mg/dL (8.5-10.1)
[2023-11-20 11:38] LABS: BILIRUBIN,TOTAL 0.4 mg/dL (0.2-1); TOT PROT 5.7 g/dl (6.4-8.2)
[2023-11-20 12:09] LABS: ANISOCYTOSIS 2+; MACROCYTOSIS 0
[2023-11-21 05:16] VITALS: TEMP 99.9
[2023-11-21] MEDS: fentaNYL 75mcg/hr PATCH.TD72 TD SCH (09:30)
[2023-11-21] MEDS: FENTANYL PATCH WASTE TD PRN (09:44)
[2023-11-21 13:11] VITALS: BP 100/72; PULSE 100; RESP 16
== END 2023-11-21 13:06 | disposition home or self-care (01) | DRG 861 ==
LOC: JER 19:51 → JERBED 22:32 → J5S 11-19 00:54 → OBSVTOIN 11-20 12:26
PROVIDERS: ADMIT Internal Medicine; ATTEND Internal Medicine
DX: G89.3 Neoplasm related pain (acute) (chronic) (principal); C79.51 Secondary malignant neoplasm of bone; I10 Essential (primary) hypertension; E78.5 Hyperlipidemia, unspecified; C61 Malignant neoplasm of prostate; D50.9 Iron deficiency anemia, unspecified; R73.9 Hyperglycemia, unspecified; E88.09 Other disorders of plasma-protein metabolism, not elsewhere classified; R50.9 Fever, unspecified
CPT/HCPCS: 36415; 78306-TC; 80048; 80053; 83735; 84100; 85025; 85027; 87040; 99285-25; A9503; G0378; J1644

== ENCOUNTER 2023-12-14 11:22 | Day surgery (SDC) | payer OTHER ==
[2023-12-14] MEDS: DENOSUMAB 120 MG/1.7 ML VIAL SQ ONE (11:33)
[2023-12-14 17:34] VITALS: BP 124/80; PULSE 112; RESP 20; TEMP 98
== END 2023-12-14 12:55 | disposition home or self-care (01) ==
LOC: JONCCHEMO 11:22 → J7W 11:23 → JONCCHEMO 12:55
PROVIDERS: ATTEND Internal Medicine Hematology & Oncology
PROC: 3E013GC Introduction of Other Therapeutic Substance into Subcutaneous Tissue, Percutaneous Approach (ICD-10-PCS; principal; 2023-12-14)
DX: C61 Malignant neoplasm of prostate (principal); C79.51 Secondary malignant neoplasm of bone; Z76.89 Persons encountering health services in other specified circumstances
CPT/HCPCS: 96372; J0897

== ENCOUNTER 2023-12-18 00:01 | Inpatient (IN) | payer OTHER ==
[2023-12-18] MEDS ORDERED: HYDROmorphone HCl 2 MG/ML VIAL ONE ×3 (00:36→02:53)
[2023-12-18] MEDS: HYDROmorphone HCl 2 MG/ML VIAL IVPUSH ONE ×3 (00:44→02:57)
[2023-12-18 01:06] LABS: BASO % 0.7 % (0-2.0); EOS % 0.1 % (0-4.5); HEMATOCRIT 34.9 % (35.4-49); HEMOGLOBIN 10.8 GM/dL (11.7-16.9); LYMPH % 5.6 % (8-40); MCHC 30.9 g/dl (32.0-35.9); MEAN CELL VOLUME 77.6 fl (80-96); MEAN PLT VOLUME 8.3 fl (7.5-11.1); MONO % 7.8 % (3.8-10.2); NEUT % 85.8 % (42.8-82.8); PLATELET COUNT 284 10^3/uL (134-434); RDW 26.7 % (11.9-15.9); WHITE BLOOD COUNT 5.3 K/mm3 (4.0-10.0)
[2023-12-18 01:10] LABS: INR 1.12 (0.83-1.09)
[2023-12-18 01:13] LABS: ACTIVATED PTT 35.8 SECONDS (25.2-36.5)
[2023-12-18 01:30] LABS: POTASSIUM 3.9 mmol/L (3.5-5.1)
[2023-12-18 01:32] LABS: CALCIUM 8.3 mg/dL (8.5-10.1)
[2023-12-18 01:33] LABS: ALBUMIN 3.2 g/dl (3.4-5.0)
[2023-12-18 01:36] LABS: CREATININE 0.9 mg/dL (0.55-1.3)
[2023-12-18 01:38] LABS: BILIRUBIN,TOTAL 0.4 mg/dL (0.2-1); TOT PROT 6.7 g/dl (6.4-8.2)
[2023-12-18] MEDS ORDERED: DOCUSATE SODIUM 100 MG CAPSULE (FP) PO PRN (03:57)
[2023-12-18 04:07] VITALS: RESP 18
[2023-12-18 04:30] LABS: ANISOCYTOSIS 2+; MACROCYTOSIS 0; OVALOCYTE 1+; TARGET CELLS 2+; TEAR DROP CELLS 1+
[2023-12-18 05:31] VITALS: BMI 24.3
[2023-12-18] MEDS: HYDROmorphone HCl 2 MG/ML VIAL IVPB ONE (06:32)
[2023-12-18] MEDS: SODIUM CHLORIDE 1,000 ML IV SCH (06:34)
[2023-12-18] MEDS ORDERED: FENTANYL PATCH WASTE TD PRN (07:41)
[2023-12-18] MEDS ORDERED: BISACODYL 10 MG SUPP.RECT PR PRN (07:41)
[2023-12-18] MEDS: TAMSULOSIN HCL 0.4 MG CAP PO SCH (08:34)
[2023-12-18] MEDS: fentaNYL 75mcg/hr PATCH.TD72 TD SCH (08:34)
[2023-12-18] MEDS: PANTOPRAZOLE 40 MG TABLET PO SCH (09:43)
[2023-12-18] MEDS: SENNOSIDES 8.6MG TABLET (FP) PO SCH (09:43)
[2023-12-18] MEDS: predniSONE 10 MG TABLET (UD) PO SCH (10:34)
[2023-12-18] MEDS: oxyCODONE HCL 5 MG TABLET PO PRN (20:46)
[2023-12-18] MEDS: HEPARIN NA (PORCINE) 5,000 UNITS/ML 1ML VIAL SQ SCH (21:52)
[2023-12-19 10:07] LABS: HEMATOCRIT 32.5 % (35.4-49); HEMOGLOBIN 9.7 GM/dL (11.7-16.9); LYMPH % 8.2 % (8-40); MCH 23.3 pg (25.7-33.7); MEAN CELL VOLUME 77.6 fl (80-96); MEAN PLT VOLUME 8.2 fl (7.5-11.1); MONO % 7.9 % (3.8-10.2); NEUT % 82.9 % (42.8-82.8); PLATELET COUNT 259 10^3/uL (134-434); RBC 4.18 M/mm3 (4.00-5.60); RDW 26.8 % (11.9-15.9); WHITE BLOOD COUNT 4.2 K/mm3 (4.0-10.0)
[2023-12-19 10:24] LABS: POTASSIUM 3.7 mmol/L (3.5-5.1)
[2023-12-19 10:27] LABS: CALCIUM 7.4 mg/dL (8.5-10.1)
[2023-12-19 10:28] LABS: BLOOD UREA NITROGEN 7.8 mg/dL (7-18)
[2023-12-19 10:31] LABS: CREATININE 0.9 mg/dL (0.55-1.3)
[2023-12-19] MEDS: morphine SULFATE 4 MG/ML VIAL IVPUSH PRN (18:22)
[2023-12-20] MEDS: PANTOPRAZOLE 40 MG TABLET PO SCH (07:08)
[2023-12-20] MEDS: oxyCODONE HCL 40 MG SUSTAINED ACTING TABLET PO SCH (12:45)
[2023-12-22] MEDS: oxyCODONE HCL 5 MG TABLET PO PRN (12:57)
[2023-12-23 07:00] VITALS: PULSE 85
[2023-12-23 09:59] LABS: BASO % 0.9 % (0-2.0); EOS % 0.2 % (0-4.5); HEMATOCRIT 28.1 % (35.4-49); HEMOGLOBIN 8.8 GM/dL (11.7-16.9); LYMPH % 10.8 % (8-40); MCH 24.1 pg (25.7-33.7); MCHC 31.4 g/dl (32.0-35.9); MEAN CELL VOLUME 76.6 fl (80-96); MEAN PLT VOLUME 9.1 fl (7.5-11.1); MONO % 7.3 % (3.8-10.2); NEUT % 80.8 % (42.8-82.8); PLATELET COUNT 259 10^3/uL (134-434); RBC 3.67 M/mm3 (4.00-5.60); RDW 26.1 % (11.9-15.9)
[2023-12-23 10:07] LABS: CHLORIDE 104 mmol/L (98-107); POTASSIUM 3.7 mmol/L (3.5-5.1); SODIUM 137 mmol/L (136-145)
[2023-12-23 10:12] LABS: ANION GAP 7 mmol/L (4-13); BLOOD UREA NITROGEN 8.2 mg/dL (7-18); CO2 26 mmol/L (21-32); GLUCOSE,RANDOM 111 mg/dL (74-106)
[2023-12-23 10:15] LABS: CREATININE 0.8 mg/dL (0.55-1.3); SGPT/ALT 88 U/L (13-61)
[2023-12-23 10:16] LABS: BILIRUBIN,TOTAL 0.2 mg/dL (0.2-1); SGOT/AST 73 U/L (15-37); TOT PROT 5.5 g/dl (6.4-8.2)
[2023-12-23 10:18] LABS: ALK PHOS 223 U/L (45-117)
[2023-12-23 10:24] LABS: ALBUMIN 2.5 g/dl (3.4-5.0); CALCIUM 6.8 mg/dL (8.5-10.1)
[2023-12-23 10:29] LABS: ANISOCYTOSIS 3+; MACROCYTOSIS 0; TARGET CELLS 1+
[2023-12-23 12:51] VITALS: BP 116/68; TEMP 98.5
== END 2023-12-23 13:40 | disposition home or self-care (01) | DRG 343 ==
LOC: JER 00:01 → JERBED 01:22 → J5S 04:35 → OBSVTOIN 12-20 17:29
PROVIDERS: ADMIT Internal Medicine; ATTEND Internal Medicine
DX: C79.51 Secondary malignant neoplasm of bone (principal); C61 Malignant neoplasm of prostate; I10 Essential (primary) hypertension; E78.5 Hyperlipidemia, unspecified; M54.9 Dorsalgia, unspecified
CPT/HCPCS: 36415; 80048; 80053; 85025; 85610; 85730; 86850; 86900; 86901; 93005; 93010; 99285-25; G0378; J1644

== ENCOUNTER 2024-01-11 10:50 | Day surgery (SDC) | payer OTHER ==
[2024-01-11] MEDS: DENOSUMAB 120 MG/1.7 ML VIAL SQ ONE (11:28)
[2024-01-11 13:49] VITALS: BP 136/78; PULSE 104; RESP 18; TEMP 98.5
== END 2024-01-11 12:00 | disposition home or self-care (01) ==
LOC: JONCCHEMO 10:50 → J7W 10:51 → JONCCHEMO 12:00
PROVIDERS: ATTEND Internal Medicine Hematology & Oncology
PROC: 3E013GC Introduction of Other Therapeutic Substance into Subcutaneous Tissue, Percutaneous Approach (ICD-10-PCS; principal; 2024-01-11)
DX: C61 Malignant neoplasm of prostate (principal); C79.51 Secondary malignant neoplasm of bone; Z76.89 Persons encountering health services in other specified circumstances
CPT/HCPCS: 96372; J0897

== ENCOUNTER 2024-01-16 21:43 | Inpatient (IN) | payer OTHER ==
[2024-01-16 22:14] LABS: BASO % 0.7 % (0-2.0); HEMATOCRIT 30.4 % (35.4-49); HEMOGLOBIN 9.6 GM/dL (11.7-16.9); LYMPH % 1.9 % (8-40); MCH 23.9 pg (25.7-33.7); MCHC 31.4 g/dl (32.0-35.9); MEAN CELL VOLUME 76.2 fl (80-96); MEAN PLT VOLUME 8.9 fl (7.5-11.1); MONO % 7.8 % (3.8-10.2); NEUT % 88.6 % (42.8-82.8); PLATELET COUNT 323 10^3/uL (134-434); RBC 3.99 M/mm3 (4.00-5.60); RDW 27.5 % (11.9-15.9); WHITE BLOOD COUNT 5.8 K/mm3 (4.0-10.0)
[2024-01-16] MEDS ORDERED: ACETAMINOPHEN INJECTION 100 ML IVPB ONE (22:16)
[2024-01-16] MEDS: ACETAMINOPHEN 1000 MG/100 ML BAG IVPB ONE (22:21)
[2024-01-16] MEDS ORDERED: HYDROmorphone HCl 2 MG/ML VIAL ONE (22:23)
[2024-01-16 22:25] LABS: INR 1.08 (0.83-1.09); PROTHROMBIN TIME (PATIENT) 12.2 SEC (9.7-13.0)
[2024-01-16 22:27] LABS: ACTIVATED PTT 31.3 SECONDS (25.2-36.5)
[2024-01-16] MEDS: HYDROmorphone HCl 2 MG/ML VIAL IVPB ONE (22:29)
[2024-01-16 22:34] LABS: POTASSIUM 5.2 mmol/L (3.5-5.1)
[2024-01-16 22:36] LABS: CALCIUM 8.6 mg/dL (8.5-10.1)
[2024-01-16 22:37] LABS: BLOOD UREA NITROGEN 7.1 mg/dL (7-18)
[2024-01-16 22:40] LABS: CREATININE 0.7 mg/dL (0.55-1.3)
[2024-01-16 22:41] LABS: TOT PROT 6.5 g/dl (6.4-8.2)
[2024-01-16 22:42] LABS: BILIRUBIN,TOTAL 0.6 mg/dL (0.2-1)
[2024-01-16 22:45] LABS: N-TERMINAL BNP 295.7 pg/ml (5-125)
[2024-01-16 23:48] LABS: ANISOCYTOSIS 1+; MACROCYTOSIS 1+; PLATELET ESTIMATE NORMAL
[2024-01-17] MEDS ORDERED: HYDROmorphone HCl 2 MG/ML VIAL ONE (00:24)
[2024-01-17] MEDS: HYDROmorphone HCl 2 MG/ML VIAL IVPB ONE (00:40)
[2024-01-17] MEDS ORDERED: morphine SULFATE 4 MG/ML VIAL ONE (01:21)
[2024-01-17] MEDS: morphine CARPU-JECT 2 MG/1 ML DISP.SYRIN IVPUSH ONE (01:44)
[2024-01-17] MEDS ORDERED: FENTANYL CITRATE/PF 50 MCG/ML VIAL ONE (02:53)
[2024-01-17] MEDS ORDERED: KETOROLAC TROMETHAMINE 15 MG/ML VIAL ONE (02:53)
[2024-01-17] MEDS: KETOROLAC TROMETHAMINE 15 MG/ML VIAL IVPUSH ONE (03:02)
[2024-01-17 05:04] VITALS: BMI 24.5
[2024-01-17] MEDS: oxyCODONE HCL 5 MG TABLET PO ONE (05:14)
[2024-01-17 08:19] LABS: CALCIUM 7.7 mg/dL (8.5-10.1)
[2024-01-17 08:20] LABS: BLOOD UREA NITROGEN 7.6 mg/dL (7-18)
[2024-01-17 08:23] LABS: CREATININE 0.6 mg/dL (0.55-1.3)
[2024-01-17] MEDS ORDERED: traZODone HCL 50 MG TABLET (FP) PO PRN (09:45)
[2024-01-17] MEDS ORDERED: BISACODYL 10 MG SUPP.RECT PR PRN (09:45)
[2024-01-17] MEDS ORDERED: FENTANYL PATCH WASTE TD PRN (10:00)
[2024-01-17] MEDS: PANTOPRAZOLE 40 MG TABLET PO SCH (10:38)
[2024-01-17] MEDS: SENNOSIDES 8.6MG TABLET (FP) PO SCH (10:39)
[2024-01-17] MEDS: predniSONE 10 MG TABLET (UD) PO SCH (10:39)
[2024-01-17] MEDS: oxyCODONE HCL 40 MG SUSTAINED ACTING TABLET PO SCH (10:39)
[2024-01-17] MEDS: fentaNYL 75mcg/hr PATCH.TD72 TD SCH (10:40)
[2024-01-17] MEDS: ENOXAPARIN NA (PORCINE) 40 MG/0.4 ML DISP.SYRIN SQ SCH (10:41)
[2024-01-17] MEDS: oxyCODONE HCL 5 MG TABLET PO SCH (11:55)
[2024-01-17] MEDS: TAMSULOSIN HCL 0.4 MG CAP PO SCH (21:31)
[2024-01-17 21:42] VITALS: RESP 18
[2024-01-17] MEDS ORDERED: PATIENT'S OWN MEDICATION (NON-FORMULARY) (Mirabegron [Myrbetriq] 25 MG Tab.Er.24h) PO SCH (22:00)
[2024-01-18] MEDS: ACETAMINOPHEN 325 MG TABLET (FP) PO PRN (05:31)
[2024-01-18] MEDS: oxyCODONE HCL 5 MG TABLET PO PRN (05:32)
[2024-01-18 11:42] VITALS: BP 117/78; PULSE 107; TEMP 98.2
[2024-01-18] MEDS: metoPROLOL SUCCINATE 25 MG TAB.SR.24H (FP) PO SCH (11:51)
== END 2024-01-18 12:15 | disposition home or self-care (01) | DRG 203 ==
LOC: JER 21:43 → JERBED 01-17 03:28 → J4S 01-17 04:43 → OBSVTOIN 01-17 09:47
PROVIDERS: ADMIT Internal Medicine; ATTEND Internal Medicine
DX: R07.9 Chest pain, unspecified (principal); C79.51 Secondary malignant neoplasm of bone; C61 Malignant neoplasm of prostate; E78.5 Hyperlipidemia, unspecified; I10 Essential (primary) hypertension
CPT/HCPCS: 36415; 71045-TC-FY; 71275-TC; 72128-TC; 72131-TC; 80048; 80053; 83735; 83880; 84484; 85025; 85610; 85730; 93005; 93010; 99285-25; G0378; J0131; Q9967

== ENCOUNTER 2024-02-09 03:14 | Inpatient (IN) | payer OTHER ==
[2024-02-09] MEDS ORDERED: HYDROmorphone HCl 2 MG/ML VIAL ONE ×3 (03:41→07:41)
[2024-02-09] MEDS: HYDROmorphone HCl 2 MG/ML VIAL IVPUSH ONE ×3 (03:45→07:45)
[2024-02-09] MEDS ORDERED: FENTANYL CITRATE/PF 50 MCG/ML VIAL ONE (03:55)
[2024-02-09 04:06] LABS: HEMATOCRIT 28.5 % (35.4-49); HEMOGLOBIN 8.7 GM/dL (11.7-16.9); MCH 23.8 pg (25.7-33.7); MCHC 30.6 g/dl (32.0-35.9); MEAN CELL VOLUME 77.6 fl (80-96); MEAN PLT VOLUME 8.2 fl (7.5-11.1); PLATELET COUNT 275 10^3/uL (134-434); RBC 3.67 M/mm3 (4.00-5.60); RDW 27.1 % (11.9-15.9); WHITE BLOOD COUNT 6.3 K/mm3 (4.0-10.0)
[2024-02-09 04:14] LABS: INR 1.13 (0.83-1.09); PROTHROMBIN TIME (PATIENT) 12.9 SEC (9.7-13.0)
[2024-02-09 04:16] LABS: ACTIVATED PTT 38.7 SECONDS (25.2-36.5)
[2024-02-09 04:22] LABS: POTASSIUM 3.6 mmol/L (3.5-5.1)
[2024-02-09 04:24] LABS: BLOOD UREA NITROGEN 6.5 mg/dL (7-18); CALCIUM 8.2 mg/dL (8.5-10.1); MAGNESIUM 2.3 mg/dL (1.8-2.4)
[2024-02-09 04:25] LABS: ALBUMIN 3.2 g/dl (3.4-5.0)
[2024-02-09 04:27] LABS: CREATININE 0.8 mg/dL (0.55-1.3)
[2024-02-09 04:28] LABS: PHOSPHOROUS 2.4 mg/dL (2.5-4.9)
[2024-02-09 04:29] LABS: BILIRUBIN,TOTAL 0.4 mg/dL (0.2-1); TOT PROT 6.7 g/dl (6.4-8.2)
[2024-02-09] MEDS ORDERED: morphine SULFATE 4 MG/ML VIAL ONE (04:42)
[2024-02-09] MEDS ORDERED: ACETAMINOPHEN INJECTION 100 ML IVPB ONE (04:42)
[2024-02-09] MEDS: ACETAMINOPHEN 1000 MG/100 ML BAG IVPB ONE (04:52)
[2024-02-09 04:53] LABS: ANISOCYTOSIS 2+; MACROCYTOSIS 1+; TARGET CELLS 1+; TEAR DROP CELLS 1+
[2024-02-09] MEDS: morphine CARPU-JECT 4 MG/1 ML DISP.SYRIN IVPUSH ONE (04:53)
[2024-02-09] MEDS ORDERED: KETOROLAC TROMETHAMINE 15 MG/ML VIAL ONE (06:28)
[2024-02-09] MEDS: KETOROLAC TROMETHAMINE 15 MG/ML VIAL IVPUSH ONE (06:31)
[2024-02-09] MEDS ORDERED: traZODone HCL 50 MG TABLET (FP) PO PRN (07:31)
[2024-02-09] MEDS ORDERED: metoPROLOL SUCCINATE 25 MG TAB.SR.24H (FP) PO ONE (09:03)
[2024-02-09] MEDS ORDERED: TAMSULOSIN HCL 0.4 MG CAP ONE (09:03)
[2024-02-09] MEDS ORDERED: SENNOSIDES 8.6MG TABLET (FP) PO ONE (09:03)
[2024-02-09] MEDS: metoPROLOL SUCCINATE 25 MG TAB.SR.24H (FP) PO SCH (09:08)
[2024-02-09] MEDS: SENNOSIDES 8.6MG TABLET (FP) PO SCH (09:08)
[2024-02-09] MEDS: TAMSULOSIN HCL 0.4 MG CAP PO SCH (09:08)
[2024-02-09] MEDS: predniSONE 5 MG TABLET (UD) PO SCH (09:08)
[2024-02-09] MEDS ORDERED: oxyCODONE HCL 5 MG TABLET ONE (09:26)
[2024-02-09] MEDS: oxyCODONE HCL 5 MG TABLET PO PRN (09:31)
[2024-02-09] MEDS ORDERED: FENTANYL PATCH WASTE TD SCH (10:00)
[2024-02-09] MEDS ORDERED: DOCUSATE SODIUM 100 MG CAPSULE (FP) PO PRN (15:09)
[2024-02-09] MEDS: POLYETHYLENE GLYCOL (HEALTHYLAX) 3350 17 GM PACKET PO SCH (17:27)
[2024-02-09 18:27] VITALS: BMI 23.7
[2024-02-09] MEDS: ACETAMINOPHEN 1000 MG/100 ML BAG IVPB PRN (20:07)
[2024-02-09] MEDS: ACETAMINOPHEN 500 MG TABLET (FP) PO ONE (20:08)
[2024-02-09] MEDS: MIRABEGRON 50 MG PO SCH (20:57)
[2024-02-10] MEDS: ABIRATERONE ACETATE 500 MG PO SCH (04:30)
[2024-02-10 05:47] LABS: EPI CELLS 24 /uL (0-25.1); HYALINE CASTS 0 /uL (0-3.1); URINE APPEARANCE CLEAR; URINE BACTERIA 2 /uL (0-1359); URINE BILIRUBIN NEGATIVE (NEGATIVE); URINE COLOR YELLOW; URINE GLUCOSE (UA) NEGATIVE (NEGATIVE); URINE KETONE 2+ (NEGATIVE); URINE LEUK ESTERASE NEGATIVE (NEGATIVE); URINE NITRITE NEGATIVE (NEGATIVE); URINE PROTEIN 1+ (NEGATIVE); URINE RBC 88 /uL (0-23.9); URINE UROBILINOGEN 0.2 mg/dL (0.2-1.0); URINE WBC 32 /uL (0-25.8)
[2024-02-10] MEDS: ONDANSETRON *ODT* 4 MG TABLET SL PRN (06:10)
[2024-02-10] MEDS: PANTOPRAZOLE 40 MG TABLET PO SCH (06:53)
[2024-02-10 09:29] LABS: BASO % 0.8 % (0-2.0); HEMATOCRIT 27.1 % (35.4-49); HEMOGLOBIN 8.4 GM/dL (11.7-16.9); LYMPH % 5.4 % (8-40); MCH 23.4 pg (25.7-33.7); MCHC 30.9 g/dl (32.0-35.9); MEAN CELL VOLUME 75.8 fl (80-96); MEAN PLT VOLUME 8.4 fl (7.5-11.1); NEUT % 79.8 % (42.8-82.8); PLATELET COUNT 242 10^3/uL (134-434); RBC 3.57 M/mm3 (4.00-5.60); RDW 26.2 % (11.9-15.9); WHITE BLOOD COUNT 3.7 K/mm3 (4.0-10.0)
[2024-02-10 09:54] LABS: POTASSIUM 3.8 mmol/L (3.5-5.1)
[2024-02-10 10:00] LABS: CALCIUM 7.8 mg/dL (8.5-10.1)
[2024-02-10 10:03] LABS: CREATININE 0.8 mg/dL (0.55-1.3)
[2024-02-10] MEDS: POLYETHYLENE GLYCOL (HEALTHYLAX) 3350 17 GM PACKET PO SCH (14:26)
[2024-02-10] MEDS: ACETAMINOPHEN 325 MG TABLET (FP) PO PRN (17:04)
[2024-02-10] MEDS: IBUPROFEN 800 MG/8 ML IJ IVPB ONE (18:42)
[2024-02-10] MEDS: SODIUM CHLORIDE 1,000 ML IV SCH (18:57)
[2024-02-11] MEDS: HEPARIN NA (PORCINE) 5,000 UNITS/ML 1ML VIAL SQ SCH (11:55)
[2024-02-11] MEDS: fentaNYL 100mcg/hr PATCH.TD72 TD SCH (12:37)
[2024-02-11] MEDS: FENTANYL PATCH WASTE TD SCH (12:40)
[2024-02-12 10:22] VITALS: BP 114/60; PULSE 105; RESP 18; TEMP 99.4
== END 2024-02-12 11:50 | disposition home or self-care (01) | DRG 343 ==
LOC: JER 03:14 → JERBED 05:34 → J5S 16:10 → OBSVTOIN 02-11 14:19
PROVIDERS: ADMIT Internal Medicine; ATTEND Internal Medicine
DX: C79.51 Secondary malignant neoplasm of bone (principal); C61 Malignant neoplasm of prostate; E78.00 Pure hypercholesterolemia, unspecified; I10 Essential (primary) hypertension; M54.59 Other low back pain; R50.9 Fever, unspecified; Z79.891 Long term (current) use of opiate analgesic
CPT/HCPCS: 0241U-QW; 36415; 71045-TC-FY; 80048; 80053; 81003; 82550; 82553; 83735; 84100; 85025; 85610; 85651; 85730; 86140; 87040; 87086; 93005; 93010; 99285-25; G0378; J0131; J1644; Q0162

== ENCOUNTER 2024-02-17 10:40 | Day surgery (SDC) | payer OTHER ==
[2024-02-17] MEDS: DENOSUMAB 120 MG/1.7 ML VIAL SQ ONE (11:21)
[2024-02-17 11:48] LABS: HEMOGLOBIN 7.1 GM/dL (11.7-16.9); MCH 23.4 pg (25.7-33.7); MCHC 30.9 g/dl (32.0-35.9); MEAN CELL VOLUME 75.8 fl (80-96); MEAN PLT VOLUME 8.6 fl (7.5-11.1); PLATELET COUNT 222 10^3/uL (134-434); RBC 3.03 M/mm3 (4.00-5.60); RDW 27.3 % (11.9-15.9); WHITE BLOOD COUNT 4.5 K/mm3 (4.0-10.0)
[2024-02-17 11:49] VITALS: BP 113/72; PULSE 91; RESP 20; TEMP 98.3
[2024-02-17 11:59] LABS: POTASSIUM 3.5 mmol/L (3.5-5.1)
[2024-02-17 12:01] LABS: ALBUMIN 2.8 g/dl (3.4-5.0); BLOOD UREA NITROGEN 7.8 mg/dL (7-18); CALCIUM 7.3 mg/dL (8.5-10.1); MAGNESIUM 1.8 mg/dL (1.8-2.4)
[2024-02-17 12:04] LABS: CREATININE 0.7 mg/dL (0.55-1.3)
[2024-02-17 12:06] LABS: BILIRUBIN,TOTAL 0.3 mg/dL (0.2-1); TOT PROT 5.5 g/dl (6.4-8.2)
[2024-02-17 12:11] LABS: ANISOCYTOSIS 2+; MACROCYTOSIS 0
== END 2024-02-17 12:00 | disposition home or self-care (01) ==
LOC: JONCCHEMO 10:40 → J7W 10:41 → JONCCHEMO 12:00
PROVIDERS: ATTEND Internal Medicine Hematology & Oncology
PROC: 3E013GC Introduction of Other Therapeutic Substance into Subcutaneous Tissue, Percutaneous Approach (ICD-10-PCS; principal; 2024-02-17)
DX: Z76.89 Persons encountering health services in other specified circumstances (principal); C61 Malignant neoplasm of prostate; C79.51 Secondary malignant neoplasm of bone
CPT/HCPCS: 36415; 80053; 83735; 84100; 84153; 84402; 84403; 85025; 96372; J0897

== ENCOUNTER 2024-02-18 07:12 | Day surgery (SDC) | payer OTHER ==
[2024-02-18 08:20] VITALS: BP 121/72; PULSE 89; RESP 20
[2024-02-18] MEDS ORDERED: CALCIUM GLUCONATE 10% - 1,000 MG/10 ML VIAL IVPB ONE (13:40)
[2024-02-18] MEDS: FUROSEMIDE 20 MG TABLET (FP) PO ONE (14:02)
[2024-02-18] MEDS: CALCIUM GLUCONATE IN NACL 1 GM/50 ML BAG IVPB ONE (17:41)
[2024-02-18 18:45] VITALS: TEMP 98.7
[2024-02-18] MEDS: PORTA CATH FLUSH 10 ML IVPUSH PRN (18:50)
[2024-02-18 18:54] LABS: HEMATOCRIT 26.8 % (35.4-49); HEMOGLOBIN 8.7 GM/dL (11.7-16.9); MCH 25.6 pg (25.7-33.7); MCHC 32.6 g/dl (32.0-35.9); MEAN CELL VOLUME 78.5 fl (80-96); PLATELET COUNT 175 10^3/uL (134-434); RBC 3.42 M/mm3 (4.00-5.60); RDW 24.1 % (11.9-15.9); WHITE BLOOD COUNT 4.1 K/mm3 (4.0-10.0)
[2024-02-18 20:11] LABS: ANISOCYTOSIS 3+; MACROCYTOSIS 0; OVALOCYTE 1+
== END 2024-02-18 18:54 | disposition home or self-care (01) ==
LOC: JONCBLOOD 07:12 → J7W 07:14 → JONCBLOOD 18:54
PROVIDERS: ATTEND Internal Medicine Hematology & Oncology
PROC: 30233N1 Transfusion of Nonautologous Red Blood Cells into Peripheral Vein, Percutaneous Approach (ICD-10-PCS; principal; 2024-02-18)
DX: D64.9 Anemia, unspecified (principal); C61 Malignant neoplasm of prostate; C79.51 Secondary malignant neoplasm of bone
CPT/HCPCS: 36415; 36430; 85025; 86850; 86900; 86901; 86922; P9038; P9058

== ENCOUNTER 2024-03-08 08:54 | Day surgery (SDC) | payer OTHER ==
[2024-03-08] MEDS: PORTA CATH FLUSH 10 ML IVPUSH PRN (10:00)
[2024-03-08] MEDS: CALCIUM GLUCONATE 10% - 1,000 MG/10 ML VIAL IVPB ONE (10:59)
[2024-03-08 16:18] VITALS: BP 110/68; PULSE 91; RESP 16; TEMP 98
== END 2024-03-08 12:15 | disposition home or self-care (01) ==
LOC: JONCCHEMO 08:54
PROVIDERS: ATTEND Internal Medicine Hematology & Oncology
PROC: 3E043GC Introduction of Other Therapeutic Substance into Central Vein, Percutaneous Approach (ICD-10-PCS; principal; 2024-03-08)
DX: C61 Malignant neoplasm of prostate (principal); C79.51 Secondary malignant neoplasm of bone; Z76.89 Persons encountering health services in other specified circumstances
CPT/HCPCS: 96365

== ENCOUNTER 2024-03-09 08:15 | Day surgery (SDC) | payer OTHER ==
[2024-03-09] MEDS ORDERED: CALCIUM GLUCONATE 10% - 1,000 MG/10 ML VIAL ONE (08:19)
[2024-03-09] MEDS: CALCIUM GLUCONATE 10% - 1,000 MG/10 ML VIAL IVPB ONE ×2 (08:30→08:49)
[2024-03-09 08:53] VITALS: RESP 20; TEMP 98.2
[2024-03-09] MEDS: PORTA CATH FLUSH 10 ML IVPUSH PRN (09:36)
[2024-03-10 07:08] VITALS: BP 111/63; PULSE 91
== END 2024-03-09 09:45 | disposition home or self-care (01) ==
LOC: JONCCHEMO 08:15 → J7W 08:16 → JONCCHEMO 09:45
PROVIDERS: ATTEND Internal Medicine Hematology & Oncology
PROC: 3E043GC Introduction of Other Therapeutic Substance into Central Vein, Percutaneous Approach (ICD-10-PCS; principal; 2024-03-09)
DX: C61 Malignant neoplasm of prostate (principal); C79.51 Secondary malignant neoplasm of bone
CPT/HCPCS: 96365

== ENCOUNTER 2024-03-14 11:16 | Day surgery (SDC) | payer OTHER ==
[2024-03-14] MEDS: CALCIUM GLUC IN NACL, ISO-OSM 1 GM/50 ML BAG IVPB ONE (11:30)
[2024-03-14] MEDS: PORTA CATH FLUSH 10 ML IVPUSH PRN (12:30)
[2024-03-14] MEDS: DENOSUMAB 120 MG/1.7 ML VIAL SQ ONE (12:36)
[2024-03-14 16:33] VITALS: BP 104/73; PULSE 99; RESP 20; TEMP 98.4
== END 2024-03-14 12:40 | disposition home or self-care (01) ==
LOC: J7W 11:16 → JONCCHEMO 11:16
PROVIDERS: ATTEND Internal Medicine Hematology & Oncology
PROC: 3E043GC Introduction of Other Therapeutic Substance into Central Vein, Percutaneous Approach (ICD-10-PCS; principal; 2024-03-14)
PROC: 3E013GC Introduction of Other Therapeutic Substance into Subcutaneous Tissue, Percutaneous Approach (ICD-10-PCS; 2024-03-14)
DX: C61 Malignant neoplasm of prostate (principal); C79.51 Secondary malignant neoplasm of bone
CPT/HCPCS: 96365; 96372; J0897

== ENCOUNTER 2024-03-30 08:26 | Day surgery (SDC) | payer OTHER ==
[2024-03-30] MEDS: CALCIUM GLUC IN NACL, ISO-OSM 1 GM/50 ML BAG IVPB ONE (08:52)
[2024-03-30] MEDS: PORTA CATH FLUSH 10 ML IVPUSH PRN (10:00)
[2024-03-30 12:05] VITALS: BP 110/54; PULSE 91; RESP 20; TEMP 98.1
== END 2024-03-30 10:30 | disposition home or self-care (01) ==
LOC: JONCCHEMO 08:26 → J7W 08:27 → JONCCHEMO 10:30
PROVIDERS: ATTEND Internal Medicine Hematology & Oncology
PROC: 3E043GC Introduction of Other Therapeutic Substance into Central Vein, Percutaneous Approach (ICD-10-PCS; principal; 2024-03-30)
DX: E58 Dietary calcium deficiency (principal); C61 Malignant neoplasm of prostate; Z76.89 Persons encountering health services in other specified circumstances
CPT/HCPCS: 96365

== ENCOUNTER 2024-04-02 14:24 | Inpatient (IN) | payer OTHER ==
[2024-04-02 14:32] VITALS: BMI 25.8
[2024-04-02] MEDS ORDERED: MORPHINE SULFATE 2 MG/ML SYRINGE ONE ×3 (15:18→21:00)
[2024-04-02] MEDS ORDERED: ACETAMINOPHEN INJECTION 100 ML IVPB ONE (15:18)
[2024-04-02] MEDS: SODIUM CHLORIDE 0.9% 1000 ML INFUS.BAG IV STA (15:36)
[2024-04-02] MEDS: ACETAMINOPHEN 1000 MG/100 ML BAG IVPB ONE (15:36)
[2024-04-02] MEDS: morphine CARPU-JECT 2 MG/1 ML DISP.SYRIN IVPUSH ONE ×2 (15:36→16:37)
[2024-04-02 15:43] LABS: VENOUS BASE EXCESS -3.4 mmol/L (-2-2); VENOUS O2 SATURATION 70.7 % (70-80); VENOUS PCO2 32.2 mmHg (38-52); VENOUS PH 7.42 (7.310-7.410)
[2024-04-02 15:48] LABS: INR 1.2 (0.83-1.09); PROTHROMBIN TIME (PATIENT) 13.7 SEC (9.7-13.0)
[2024-04-02 15:51] LABS: ACTIVATED PTT 35.3 SECONDS (25.2-36.5)
[2024-04-02] MEDS ORDERED: VANCOMYCIN 1 GRAM (PRE-DOCKED) 1,000 MG/250 ML BAG IVPB ONE (16:18)
[2024-04-02] MEDS ORDERED: PIPERACILLIN/TAZOB 3.375 GM 3.375 GM/50 ML BAG IVPB ONE (16:18)
[2024-04-02] MEDS: PIPERACILLIN/TAZOB 3.375 GM 3.375 GM in DEXTROSE 5%-WATER - 50 ML IVPB ONE (16:30)
[2024-04-02] MEDS: VANCOMYCIN 1,000 MG in DEXTROSE 5%-WATER - 250 ML IVPB ONE (17:06)
[2024-04-02 19:16] LABS: EPI CELLS 8 /uL (0-25.1); HYALINE CASTS 0 /uL (0-3.1); PH,URINE 6.5 (5.0-8.0); URINE APPEARANCE CLEAR; URINE BACTERIA 1 /uL (0-1359); URINE BILIRUBIN NEGATIVE (NEGATIVE); URINE COLOR YELLOW; URINE GLUCOSE (UA) NEGATIVE (NEGATIVE); URINE KETONE NEGATIVE (NEGATIVE); URINE LEUK ESTERASE NEGATIVE (NEGATIVE); URINE NITRITE NEGATIVE (NEGATIVE); URINE PROTEIN NEGATIVE (NEGATIVE); URINE RBC 28 /uL (0-23.9); URINE WBC 5 /uL (0-25.8)
[2024-04-02] MEDS ORDERED: DOCUSATE SODIUM 100 MG CAPSULE (FP) PO PRN (19:45)
[2024-04-02] MEDS ORDERED: BISACODYL 10 MG SUPP.RECT PR PRN (20:07)
[2024-04-02] MEDS ORDERED: oxyCODONE HCL 5 MG TABLET ONE (20:18)
[2024-04-02] MEDS: MORPHINE SULFATE 2 MG/ML SYRINGE IVPUSH PRN (21:05)
[2024-04-02] MEDS ORDERED: MORPHINE SULFATE 2 MG/ML SYRINGE SQ PRN (21:47)
[2024-04-02] MEDS: TAMSULOSIN HCL 0.4 MG CAP PO SCH (23:21)
[2024-04-02] MEDS: PIPERACILLIN/TAZOB 3.375 GM 3.375 GM in DEXTROSE 5%-WATER - 50 ML IVPB SCH (23:21)
[2024-04-02] MEDS: oxyCODONE HCL 5 MG TABLET PO PRN (23:22)
[2024-04-02] MEDS: morphine SULFATE 4 MG/ML VIAL IVPUSH PRN (23:24)
[2024-04-03] MEDS: ACETAMINOPHEN 1000 MG/100 ML BAG IVPB PRN (03:25)
[2024-04-03] MEDS ORDERED: VANCOMYCIN/WATER 1250 MG 1,250 MG/250 ML BAG IVPB SCH (06:00)
[2024-04-03] MEDS: VANCOMYCIN/WATER 1250 MG 1,250 MG/250 ML BAG IVPB SCH (06:20)
[2024-04-03] MEDS: PANTOPRAZOLE 40 MG TABLET PO SCH (09:46)
[2024-04-03] MEDS: HEPARIN NA (PORCINE) 5,000 UNITS/ML 1ML VIAL SQ SCH (09:46)
[2024-04-03] MEDS: POLYETHYLENE GLYCOL (HEALTHYLAX) 3350 17 GM PACKET PO SCH (09:47)
[2024-04-03 09:59] LABS: BASO % 0.4 % (0-2.0); EOS % 0.2 % (0-4.5); HEMATOCRIT 23.6 % (35.4-49); HEMOGLOBIN 7.4 GM/dL (11.7-16.9); LYMPH % 14.1 % (8-40); MCH 25.3 pg (25.7-33.7); MCHC 31.4 g/dl (32.0-35.9); MEAN CELL VOLUME 80.4 fl (80-96); MEAN PLT VOLUME 8.2 fl (7.5-11.1); MONO % 8.2 % (3.8-10.2); NEUT % 77.1 % (42.8-82.8); PLATELET COUNT 199 10^3/uL (134-434); RBC 2.94 M/mm3 (4.00-5.60); RDW 25.5 % (11.9-15.9); WHITE BLOOD COUNT 2.6 K/mm3 (4.0-10.0)
[2024-04-03 10:14] LABS: CHLORIDE 109 mmol/L (98-107); POTASSIUM 3.5 mmol/L (3.5-5.1); SODIUM 140 mmol/L (136-145)
[2024-04-03 10:16] LABS: ANION GAP 9 mmol/L (4-13); BLOOD UREA NITROGEN 8.7 mg/dL (7-18); CO2 22 mmol/L (21-32); GLUCOSE,RANDOM 118 mg/dL (74-106)
[2024-04-03 10:18] LABS: CALCIUM 6.2 mg/dL (8.5-10.1)
[2024-04-03 10:20] LABS: CREATININE 0.6 mg/dL (0.55-1.3)
[2024-04-03 11:00] VITALS: RESP 18
[2024-04-03] MEDS: fentaNYL 100mcg/hr PATCH.TD72 TD SCH (12:42)
[2024-04-03] MEDS: FENTANYL PATCH WASTE TD PRN (12:48)
[2024-04-03] MEDS: VANCOMYCIN/WATER FOR INJ (PEG) 1,000 MG/200 ML BAG IVPB SCH (18:07)
[2024-04-04] MEDS: ACETAMINOPHEN 325 MG TABLET (FP) PO ONE (15:48)
[2024-04-04] MEDS: PIPERACILLIN/TAZOB 3.375 GM 3.375 GM in DEXTROSE 5%-WATER - 50 ML IVPB SCH (15:49)
[2024-04-05] MEDS: ACETAMINOPHEN 1000 MG/100 ML BAG IVPB ONE (06:07)
[2024-04-05 13:03] LABS: HEMATOCRIT 22.5 % (35.4-49); HEMOGLOBIN 7.1 GM/dL (11.7-16.9); MCH 25.3 pg (25.7-33.7); MCHC 31.8 g/dl (32.0-35.9); MEAN CELL VOLUME 79.7 fl (80-96); PLATELET COUNT 195 10^3/uL (134-434); RBC 2.82 M/mm3 (4.00-5.60)
[2024-04-05 13:23] LABS: POTASSIUM 3.5 mmol/L (3.5-5.1)
[2024-04-05 13:25] LABS: ALBUMIN 2.1 g/dl (3.4-5.0); BLOOD UREA NITROGEN 7.6 mg/dL (7-18)
[2024-04-05 13:29] LABS: CREATININE 0.7 mg/dL (0.55-1.3)
[2024-04-05 13:30] LABS: BILIRUBIN,TOTAL 0.6 mg/dL (0.2-1); TOT PROT 5.5 g/dl (6.4-8.2)
[2024-04-05 13:35] LABS: ANISOCYTOSIS 2+; MACROCYTOSIS 1+; OVALOCYTE 1+
[2024-04-05 13:37] LABS: PLATELET ESTIMATE ADEQUATE
[2024-04-05 13:46] LABS: CALCIUM 7.7 mg/dL (8.5-10.1)
[2024-04-06 08:47] VITALS: BP 110/73; PULSE 101; TEMP 98.4
== END 2024-04-06 12:34 | disposition home or self-care (01) | DRG 343 ==
LOC: JER 14:24 → JERBED 18:35 → J6S 22:04
PROVIDERS: ADMIT Internal Medicine; ATTEND Internal Medicine
DX: C79.51 Secondary malignant neoplasm of bone (principal); C61 Malignant neoplasm of prostate; I10 Essential (primary) hypertension; E78.5 Hyperlipidemia, unspecified; R50.9 Fever, unspecified
CPT/HCPCS: 0241U-QW; 36415; 71045-TC-FY; 80048; 80053; 81003; 82803; 82962; 83605; 84484; 85025; 85610; 85730; 87040; 87086; 93005; 93010; 99285-25; J0131; J1644

== ENCOUNTER 2024-04-22 00:14 | Observation (INO) | payer OTHER ==
[2024-04-22] MEDS ORDERED: HYDROmorphone HCL CARPU-JECT 2 MG/1 ML DISP.SYRIN ONE ×4 (00:48→08:47)
[2024-04-22] MEDS: HYDROmorphone HCl 2 MG/ML VIAL IVPUSH ONE ×3 (01:05→03:21)
[2024-04-22] MEDS ORDERED: METOCLOPRAMIDE HCL INJECTION 10 MG/2 ML VIAL ONE (01:08)
[2024-04-22 01:15] LABS: MCH 25.2 pg (25.7-33.7); MCHC 31.3 g/dl (32.0-35.9); MEAN CELL VOLUME 80.5 fl (80-96); MEAN PLT VOLUME 8.7 fl (7.5-11.1); PLATELET COUNT 185 10^3/uL (134-434); RBC 3.97 M/mm3 (4.00-5.60); RDW 22.8 % (11.9-15.9); WHITE BLOOD COUNT 4.6 K/mm3 (4.0-10.0)
[2024-04-22] MEDS: METOCLOPRAMIDE HCL INJECTION 10 MG/2 ML VIAL IVPUSH ONE (01:15)
[2024-04-22 01:45] LABS: POTASSIUM 4.2 mmol/L (3.5-5.1)
[2024-04-22 01:46] LABS: CALCIUM 9.5 mg/dL (8.5-10.1)
[2024-04-22 01:48] LABS: ALBUMIN 2.9 g/dl (3.4-5.0); BLOOD UREA NITROGEN 12.7 mg/dL (7-18)
[2024-04-22 01:51] LABS: CREATININE 0.7 mg/dL (0.55-1.3)
[2024-04-22 01:53] LABS: BILIRUBIN,TOTAL 0.4 mg/dL (0.2-1); TOT PROT 6.3 g/dl (6.4-8.2)
[2024-04-22] MEDS ORDERED: TRIMETHOBENZAMIDE HCL 200MG/2ML INJ IM PRN (05:15)
[2024-04-22] MEDS: DOCUSATE SODIUM 100 MG CAPSULE (FP) PO ONE (05:53)
[2024-04-22 06:35] LABS: CALCIUM 8.1 mg/dL (8.5-10.1)
[2024-04-22 06:36] LABS: ALBUMIN 2.6 g/dl (3.4-5.0); BLOOD UREA NITROGEN 10.8 mg/dL (7-18); MAGNESIUM 1.5 mg/dL (1.8-2.4)
[2024-04-22 06:40] LABS: BILIRUBIN,TOTAL 0.4 mg/dL (0.2-1); CREATININE 0.6 mg/dL (0.55-1.3); PHOSPHOROUS 2.9 mg/dL (2.5-4.9)
[2024-04-22 06:42] LABS: TOT PROT 5.6 g/dl (6.4-8.2)
[2024-04-22 06:43] LABS: HEMATOCRIT 28.9 % (35.4-49); HEMOGLOBIN 9.2 GM/dL (11.7-16.9); MCHC 31.8 g/dl (32.0-35.9); MEAN CELL VOLUME 78.7 fl (80-96); MEAN PLT VOLUME 8.9 fl (7.5-11.1); PLATELET COUNT 179 10^3/uL (134-434); RBC 3.68 M/mm3 (4.00-5.60); RDW 23.1 % (11.9-15.9); WHITE BLOOD COUNT 3.8 K/mm3 (4.0-10.0)
[2024-04-22] MEDS ORDERED: TRIMETHOBENZAMIDE HCL 200MG/2ML INJ IM ONE (08:48)
[2024-04-22] MEDS ORDERED: TAMSULOSIN HCL 0.4 MG CAP ONE (08:48)
[2024-04-22] MEDS: TAMSULOSIN HCL 0.4 MG CAP PO SCH (08:54)
[2024-04-22] MEDS: HYDROmorphone HCl 2 MG/ML VIAL IVPUSH PRN (08:54)
[2024-04-22 09:15] LABS: PH,URINE 5.5 (5.0-8.0); URINE APPEARANCE CLEAR; URINE BILIRUBIN NEGATIVE (NEGATIVE); URINE COLOR YELLOW; URINE GLUCOSE (UA) NEGATIVE (NEGATIVE); URINE KETONE NEGATIVE (NEGATIVE); URINE LEUK ESTERASE NEGATIVE (NEGATIVE); URINE NITRITE NEGATIVE (NEGATIVE); URINE PROTEIN NEGATIVE (NEGATIVE); URINE UROBILINOGEN 0.2 mg/dL (0.2-1.0)
[2024-04-22] MEDS: oxyCODONE HCL 10 MG SUSTAINED ACTING TABLET PO SCH ×2 (09:19→21:16)
[2024-04-22 09:20] LABS: PLATELET ESTIMATE ADEQUATE
[2024-04-22] MEDS: ENOXAPARIN NA (PORCINE) 40 MG/0.4 ML DISP.SYRIN SQ SCH (09:20)
[2024-04-22] MEDS: predniSONE 5 MG TABLET (UD) PO SCH (09:20)
[2024-04-22] MEDS: PANTOPRAZOLE 40 MG TABLET PO SCH (09:20)
[2024-04-22] MEDS: POLYETHYLENE GLYCOL (HEALTHYLAX) 3350 17 GM PACKET PO SCH (09:20)
[2024-04-22] MEDS ORDERED: ONDANSETRON 8 MG TABLET (FP) PO SCH (10:00)
[2024-04-22] MEDS ORDERED: ABIRATERONE ACETATE 500 MG PO SCH (10:00)
[2024-04-22] MEDS ORDERED: FENTANYL PATCH WASTE TD PRN (11:12)
[2024-04-22 11:32] VITALS: BMI 21.0
[2024-04-22] MEDS: fentaNYL 100mcg/hr PATCH.TD72 TD SCH (11:47)
[2024-04-22] MEDS: HYDROmorphone HCL CARPU-JECT 2 MG/1 ML DISP.SYRIN IVPUSH PRN (18:04)
[2024-04-22] MEDS: SENNOSIDES 8.8 MG/5 ML SYRUP PO SCH (21:16)
[2024-04-23 12:04] VITALS: BP 109/66; PULSE 100; RESP 18; TEMP 99
== END 2024-04-23 14:34 | disposition home or self-care (01) ==
LOC: JER 00:14 → JERBED 02:55 → J8W 09:06
PROVIDERS: ADMIT Internal Medicine; ATTEND Internal Medicine
PROC: 3E023GC Introduction of Other Therapeutic Substance into Muscle, Percutaneous Approach (ICD-10-PCS; principal; 2024-04-22)
PROC: 3E033NZ Introduction of Analgesics, Hypnotics, Sedatives into Peripheral Vein, Percutaneous Approach (ICD-10-PCS; 2024-04-22)
PROC: 3E033GC Introduction of Other Therapeutic Substance into Peripheral Vein, Percutaneous Approach (ICD-10-PCS; 2024-04-22)
DX: G89.4 Chronic pain syndrome (principal); C61 Malignant neoplasm of prostate; C79.51 Secondary malignant neoplasm of bone; D63.8 Anemia in other chronic diseases classified elsewhere; I10 Essential (primary) hypertension; E78.5 Hyperlipidemia, unspecified; N40.0 Benign prostatic hyperplasia without lower urinary tract symptoms; N13.30 Unspecified hydronephrosis; Z91.013 Allergy to seafood
CPT/HCPCS: 36415; 80053; 81003; 82728; 83540; 83550; 83735; 84100; 84466; 85025; 85027; 85045; 93005; 93010; 96372; 96374; 96375; 96376; 99285-25; G0378

== ENCOUNTER 2024-06-12 05:38 | Emergency (ER) | payer OTHER ==
[2024-06-12 05:55] VITALS: BP 103/68; PULSE 101; RESP 19; TEMP 98.4; BMI 20.3
[2024-06-12] MEDS ORDERED: HYDROmorphone HCl 2 MG/ML VIAL ONE (06:08)
[2024-06-12] MEDS: HYDROmorphone HCl 2 MG/ML VIAL IVPUSH ONE ×2 (06:19)
== END 2024-06-12 06:41 | disposition home or self-care (01) ==
LOC: JER 05:38
PROC: 3E033NZ Introduction of Analgesics, Hypnotics, Sedatives into Peripheral Vein, Percutaneous Approach (ICD-10-PCS; principal; 2024-06-12)
DX: M79.621 Pain in right upper arm (principal); G89.3 Neoplasm related pain (acute) (chronic)
CPT/HCPCS: 99284-25

== ENCOUNTER 2024-06-20 14:54 | Emergency (ER) | payer OTHER ==
[2024-06-20 15:01] VITALS: BP 115/70; PULSE 85; RESP 16; TEMP 97.9; BMI 20.3
== END 2024-06-20 15:49 | disposition home or self-care (01) ==
LOC: JERFT 14:54
DX: Z76.0 Encounter for issue of repeat prescription (principal)
CPT/HCPCS: 99281-25

== ENCOUNTER 2024-06-23 11:10 | Day surgery (SDC) | payer OTHER ==
[2024-06-23] MEDS: POTASSIUM PHOSPHATE 20 MM in SODIUM CHLORIDE 250 ML IVPB ONE (11:00)
[~2024-06-23 11:10] MED LIST changes: +CALCIUM GLUC IN NACL, ISO-OSM 1 GM/50 ML BAG IVPB ONE; +DENOSUMAB 120 MG/1.7 ML VIAL SQ ONE; -PEGFILGRASTIM-CBQV (UDENYCA) 6 MG/0.6 ML SYRINGE SQ ONE
[2024-06-23] MEDS: CALCIUM GLUC IN NACL, ISO-OSM 1 GM/50 ML BAG IVPB ONE (13:30)
[2024-06-23] MEDS: MAGNESIUM SULFATE IN WATER 2 GM/50 ML IVPB IVPB ONE (16:10)
[2024-06-23] MEDS: FUROSEMIDE 20 MG TABLET (FP) PO ONE ×2 (17:14→17:15)
[2024-06-23] MEDS: POTASSIUM CHLORIDE TABS 20 MEQ TABLET.ER (FP) PO ONE ×2 (17:14→17:15)
[2024-06-23 17:45] VITALS: BP 96/68; PULSE 105; RESP 22; TEMP 98.4
[2024-06-23 19:49] LABS: MCH 25.7 pg (25.7-33.7); MCHC 31.8 g/dl (32.0-35.9); MEAN CELL VOLUME 80.8 fl (80-96); MEAN PLT VOLUME 8.5 fl (7.5-11.1); RDW 20.2 % (11.9-15.9)
[2024-06-23] MEDS: PORTA CATH FLUSH 10 ML IVPUSH PRN (19:57)
[2024-06-23 20:44] LABS: ANISOCYTOSIS 2+; MACROCYTOSIS 0; OVALOCYTE 2+; TEAR DROP CELLS 1+
[2024-06-23 23:16] LABS: PLATELET COUNT 32 10^3/uL (134-434)
== END 2024-06-23 20:07 | disposition home or self-care (01) ==
LOC: J7W 11:10 → JONCBLOOD 11:10 → J7W 13:37 → JONCBLOOD 20:07
PROVIDERS: ATTEND Internal Medicine Hematology & Oncology
PROC: 30243N1 Transfusion of Nonautologous Red Blood Cells into Central Vein, Percutaneous Approach (ICD-10-PCS; principal; 2024-06-23)
PROC: 3E043GC Introduction of Other Therapeutic Substance into Central Vein, Percutaneous Approach (ICD-10-PCS; 2024-06-23)
DX: C61 Malignant neoplasm of prostate (principal); E58 Dietary calcium deficiency
CPT/HCPCS: 36415; 36430; 85025; 86850; 86900; 86901; 86922; 96365; 96366; 96367; P9038; P9058

== ENCOUNTER 2024-07-04 11:06 | Inpatient (IN) | payer OTHER ==
[2024-07-04] MEDS ORDERED: HYDROmorphone HCl 2 MG/ML VIAL ONE ×2 (12:03→20:47)
[2024-07-04] MEDS: HYDROmorphone HCl 2 MG/ML VIAL IVPB ONE ×2 (12:48→21:04)
[2024-07-04] MEDS: LACTATED RINGERS SOLUTION 1000 ML INFUS.BAG IV ONE (12:50)
[2024-07-04 13:09] LABS: HEMATOCRIT 31.4 % (35.4-49); HEMOGLOBIN 9.7 GM/dL (11.7-16.9); MCH 25.5 pg (25.7-33.7); MEAN CELL VOLUME 82.1 fl (80-96); MEAN PLT VOLUME 6.9 fl (7.5-11.1); RBC 3.83 M/mm3 (4.00-5.60); RDW 23.2 % (11.9-15.9)
[2024-07-04 13:10] LABS: WHITE BLOOD COUNT 2.8 K/mm3 (4.0-10.0)
[2024-07-04 13:22] LABS: POTASSIUM 4.6 mmol/L (3.5-5.1)
[2024-07-04 13:25] LABS: CALCIUM 7.1 mg/dL (8.5-10.1); LACTIC ACID 3.6 mmol/L (0.4-2.0)
[2024-07-04 13:26] LABS: ALBUMIN 2.4 g/dl (3.4-5.0); BLOOD UREA NITROGEN 13.7 mg/dL (7-18); MAGNESIUM 1.8 mg/dL (1.8-2.4)
[2024-07-04 13:29] LABS: CREATININE 0.6 mg/dL (0.55-1.3)
[2024-07-04 13:30] LABS: BILIRUBIN,TOTAL 1.5 mg/dL (0.2-1); TOT PROT 5.4 g/dl (6.4-8.2)
[2024-07-04 13:38] LABS: ANISOCYTOSIS 2+; CORRECTED WBC 2.48 K/mm3; MACROCYTOSIS 1+
[2024-07-04 13:46] LABS: PLATELET COUNT 27 10^3/uL (134-434)
[2024-07-04 14:27] LABS: HIV INTERPRETATION NEGATIVE (NEGATIVE)
[2024-07-04 20:10] LABS: LACTIC ACID 2.3 mmol/L (0.4-2.0)
[2024-07-05] MEDS: fentaNYL 100mcg/hr PATCH.TD72 TD SCH (00:15)
[2024-07-05] MEDS: ACETAMINOPHEN 500 MG TABLET (FP) PO SCH (00:18)
[2024-07-05] MEDS: predniSONE 5 MG TABLET (UD) PO SCH (00:18)
[2024-07-05] MEDS: TAMSULOSIN HCL 0.4 MG CAP PO SCH (00:18)
[2024-07-05] MEDS: HYDROmorphone HCL 2 MG TABLET PO PRN (01:52)
[2024-07-05 09:21] LABS: CHLORIDE 111 mmol/L (98-107); POTASSIUM 3.7 mmol/L (3.5-5.1); SODIUM 140 mmol/L (136-145)
[2024-07-05 09:24] LABS: HEMATOCRIT 25.7 % (35.4-49); HEMOGLOBIN 8.1 GM/dL (11.7-16.9); MCH 25.4 pg (25.7-33.7); MCHC 31.5 g/dl (32.0-35.9); MEAN CELL VOLUME 80.6 fl (80-96); MEAN PLT VOLUME 8.6 fl (7.5-11.1); RBC 3.18 M/mm3 (4.00-5.60); RDW 23.5 % (11.9-15.9)
[2024-07-05 09:25] LABS: ALBUMIN 2.2 g/dl (3.4-5.0)
[2024-07-05 09:26] LABS: ANION GAP 7 mmol/L (4-13); BLOOD UREA NITROGEN 14.2 mg/dL (7-18); CO2 22 mmol/L (21-32); GLUCOSE,RANDOM 88 mg/dL (74-106)
[2024-07-05 09:27] LABS: MAGNESIUM 1.7 mg/dL (1.8-2.4)
[2024-07-05 09:29] LABS: CREATININE 0.6 mg/dL (0.55-1.3); SGOT/AST 101 U/L (15-37); SGPT/ALT 50 U/L (13-61)
[2024-07-05 09:30] LABS: TOT PROT 4.7 g/dl (6.4-8.2)
[2024-07-05 09:31] LABS: CALCIUM 6.4 mg/dL (8.5-10.1)
[2024-07-05 09:32] LABS: BILIRUBIN,TOTAL 1.3 mg/dL (0.2-1)
[2024-07-05 09:34] LABS: ALK PHOS 487 U/L (45-117)
[2024-07-05 09:35] LABS: PLATELET COUNT 11 10^3/uL (134-434); WHITE BLOOD COUNT 1.9 K/mm3 (4.0-10.0)
[2024-07-05] MEDS: PANTOPRAZOLE 40 MG TABLET PO SCH (10:45)
[2024-07-05] MEDS: MAGNESIUM SULFATE IN WATER 2 GM/50 ML IVPB IVPB ONE (13:13)
[2024-07-05] MEDS: CALCIUM GLUCONATE IN NACL 1 GM/50 ML BAG IVPB ONE (15:37)
[2024-07-06 08:39] LABS: HEMATOCRIT 22.4 % (35.4-49); MCH 25.2 pg (25.7-33.7); MCHC 31.4 g/dl (32.0-35.9); MEAN CELL VOLUME 80.4 fl (80-96); MEAN PLT VOLUME 8.2 fl (7.5-11.1); RBC 2.79 M/mm3 (4.00-5.60); RDW 23.8 % (11.9-15.9)
[2024-07-06 09:10] LABS: CHLORIDE 109 mmol/L (98-107); POTASSIUM 3.8 mmol/L (3.5-5.1); SODIUM 137 mmol/L (136-145)
[2024-07-06 09:15] LABS: ALBUMIN 2.2 g/dl (3.4-5.0); ANION GAP 6 mmol/L (4-13); BLOOD UREA NITROGEN 11.1 mg/dL (7-18); CO2 22 mmol/L (21-32); GLUCOSE,RANDOM 95 mg/dL (74-106); PLATELET COUNT 29 10^3/uL (134-434); WHITE BLOOD COUNT 1.9 K/mm3 (4.0-10.0)
[2024-07-06 09:16] LABS: CALCIUM 6.4 mg/dL (8.5-10.1)
[2024-07-06 09:18] LABS: CREATININE 0.4 mg/dL (0.55-1.3); SGOT/AST 112 U/L (15-37); SGPT/ALT 47 U/L (13-61)
[2024-07-06 09:19] LABS: PHOSPHOROUS 1.5 mg/dL (2.5-4.9)
[2024-07-06 09:20] LABS: BILIRUBIN,TOTAL 0.9 mg/dL (0.2-1); TOT PROT 4.6 g/dl (6.4-8.2)
[2024-07-06 09:21] LABS: ALK PHOS 527 U/L (45-117)
[2024-07-06 09:30] LABS: ANISOCYTOSIS 3+; CORRECTED WBC 1.68 K/mm3; MACROCYTOSIS 1+; TEAR DROP CELLS 1+
[2024-07-06] MEDS: POLYETHYLENE GLYCOL (HEALTHYLAX) 3350 17 GM PACKET PO SCH (10:34)
[2024-07-06] MEDS: POTASSIUM PHOSPHATE 15 MM in SODIUM CHLORIDE 250 ML IVPB ONE (12:12)
[2024-07-06 14:03] LABS: BILIRUBIN,DIRECT 0.4 mg/dL (0.0-0.2)
[2024-07-06 15:42] LABS: GAMMA GLUTAMYL TRANSPEPTIDASE 535 U/L (5-85)
[2024-07-06 16:06] VITALS: BMI 20.5
[2024-07-06] MEDS: CALCIUM GLUCONATE IN NACL, 1,000 MG/100 ML BAG IVPB ONE (17:43)
[2024-07-07 10:53] LABS: INR 1.44 (0.83-1.09); PROTHROMBIN TIME (PATIENT) 16.1 SEC (9.7-13.0)
[2024-07-07 10:56] LABS: HEMATOCRIT 26.1 % (35.4-49); HEMOGLOBIN 8.1 GM/dL (11.7-16.9); MCH 25.4 pg (25.7-33.7); MCHC 31.1 g/dl (32.0-35.9); MEAN CELL VOLUME 81.5 fl (80-96); MEAN PLT VOLUME 8.3 fl (7.5-11.1); RDW 23.4 % (11.9-15.9)
[2024-07-07 11:04] LABS: PLATELET COUNT 21 10^3/uL (134-434)
[2024-07-07 11:07] LABS: CHLORIDE 107 mmol/L (98-107); POTASSIUM 3.5 mmol/L (3.5-5.1); SODIUM 138 mmol/L (136-145)
[2024-07-07 11:18] LABS: ALBUMIN 2.4 g/dl (3.4-5.0); ANION GAP 7 mmol/L (4-13); CALCIUM 6.9 mg/dL (8.5-10.1); CO2 24 mmol/L (21-32); GLUCOSE,RANDOM 126 mg/dL (74-106)
[2024-07-07 11:20] LABS: BLOOD UREA NITROGEN 8.1 mg/dL (7-18); SGOT/AST 144 U/L (15-37)
[2024-07-07 11:22] LABS: CREATININE 0.5 mg/dL (0.55-1.3)
[2024-07-07 11:24] LABS: ALK PHOS 637 U/L (45-117)
[2024-07-07 11:25] LABS: BILIRUBIN,TOTAL 0.9 mg/dL (0.2-1); TOT PROT 4.9 g/dl (6.4-8.2)
[2024-07-07 11:32] LABS: SGPT/ALT 59 U/L (13-61)
[2024-07-07 11:43] LABS: ANISOCYTOSIS 1+; CORRECTED WBC 1.75 K/mm3; MACROCYTOSIS 1+
[2024-07-07 13:02] LABS: INR 1.44 (0.83-1.09); PROTHROMBIN TIME (PATIENT) 16.1 SEC (9.7-13.0)
[2024-07-07 13:03] LABS: ACTIVATED PTT 36.1 SECONDS (25.2-36.5)
[2024-07-07] MEDS ORDERED: FENTANYL CITRATE/PF 50 MCG/ML VIAL ONE (14:21)
[2024-07-07] MEDS: SODIUM CHLORIDE 500 ML IV SCH (14:35)
[2024-07-07] MEDS: FENTANYL CITRATE/PF 50 MCG/ML VIAL IVPUSH ONE (14:50)
[2024-07-08 13:57] LABS: CHLORIDE 107 mmol/L (98-107); POTASSIUM 3.2 mmol/L (3.5-5.1); SODIUM 139 mmol/L (136-145)
[2024-07-08 13:59] LABS: HEMATOCRIT 26.9 % (35.4-49); HEMOGLOBIN 8.5 GM/dL (11.7-16.9); MCH 25.7 pg (25.7-33.7); MCHC 31.7 g/dl (32.0-35.9); MEAN CELL VOLUME 81.1 fl (80-96); MEAN PLT VOLUME 8.6 fl (7.5-11.1); RBC 3.32 M/mm3 (4.00-5.60); RDW 24.1 % (11.9-15.9)
[2024-07-08 14:00] LABS: WHITE BLOOD COUNT 2.6 K/mm3 (4.0-10.0)
[2024-07-08 14:04] LABS: ALBUMIN 2.4 g/dl (3.4-5.0); ANION GAP 9 mmol/L (4-13); CALCIUM 6.4 mg/dL (8.5-10.1); CO2 23 mmol/L (21-32); GLUCOSE,RANDOM 101 mg/dL (74-106); PLATELET COUNT 11 10^3/uL (134-434)
[2024-07-08 14:06] LABS: CREATININE 0.5 mg/dL (0.55-1.3); SGOT/AST 131 U/L (15-37)
[2024-07-08 14:08] LABS: TOT PROT 4.9 g/dl (6.4-8.2)
[2024-07-08 14:09] LABS: ALK PHOS 647 U/L (45-117); SGPT/ALT 55 U/L (13-61)
[2024-07-08 14:36] LABS: ANISOCYTOSIS 3+; MACROCYTOSIS 0; OVALOCYTE 1+
[2024-07-08] MEDS: CALCIUM GLUC IN NACL, ISO-OSM 1 GM/50 ML BAG IVPB ONE (17:21)
[2024-07-09 09:07] LABS: HEMATOCRIT 23.6 % (35.4-49); HEMOGLOBIN 7.4 GM/dL (11.7-16.9); MCH 25.6 pg (25.7-33.7); MCHC 31.3 g/dl (32.0-35.9); MEAN CELL VOLUME 81.8 fl (80-96); MEAN PLT VOLUME 8.2 fl (7.5-11.1); RBC 2.88 M/mm3 (4.00-5.60)
[2024-07-09 09:20] LABS: CHLORIDE 108 mmol/L (98-107); POTASSIUM 3.8 mmol/L (3.5-5.1); SODIUM 138 mmol/L (136-145)
[2024-07-09 09:29] LABS: ALBUMIN 2.2 g/dl (3.4-5.0); ANION GAP 8 mmol/L (4-13); BLOOD UREA NITROGEN 10.9 mg/dL (7-18); CALCIUM 6.5 mg/dL (8.5-10.1); CO2 22 mmol/L (21-32)
[2024-07-09 09:30] LABS: GLUCOSE,RANDOM 91 mg/dL (74-106)
[2024-07-09 09:33] LABS: CREATININE 0.5 mg/dL (0.55-1.3); SGOT/AST 105 U/L (15-37); SGPT/ALT 48 U/L (13-61)
[2024-07-09 09:34] LABS: TOT PROT 4.5 g/dl (6.4-8.2)
[2024-07-09 09:35] LABS: ALK PHOS 632 U/L (45-117)
[2024-07-09 10:40] LABS: ANISOCYTOSIS 2+; CORRECTED WBC 1.69 K/mm3; MACROCYTOSIS 0
[2024-07-09 10:43] LABS: PLATELET COUNT 30 10^3/uL (134-434)
[2024-07-09] MEDS: CALCIUM GLUCONATE 10% - 1,000 MG/10 ML VIAL IVPB ONE (14:35)
[2024-07-10 08:17] LABS: BASO % 0.5 % (0-2.0); EOS % 0.1 % (0-4.5); HEMATOCRIT 26.3 % (35.4-49); HEMOGLOBIN 8.2 GM/dL (11.7-16.9); LYMPH % 13.2 % (8-40); MCH 25.7 pg (25.7-33.7); MCHC 31.3 g/dl (32.0-35.9); MEAN CELL VOLUME 82.3 fl (80-96); MEAN PLT VOLUME 6.7 fl (7.5-11.1); MONO % 5.2 % (3.8-10.2); RBC 3.19 M/mm3 (4.00-5.60); RDW 23.9 % (11.9-15.9); WHITE BLOOD COUNT 2.6 K/mm3 (4.0-10.0)
[2024-07-10 08:34] LABS: POTASSIUM 3.8 mmol/L (3.5-5.1)
[2024-07-10 08:39] LABS: ALBUMIN 2.4 g/dl (3.4-5.0); BLOOD UREA NITROGEN 12.8 mg/dL (7-18); CALCIUM 7.2 mg/dL (8.5-10.1)
[2024-07-10 08:42] LABS: CREATININE 0.6 mg/dL (0.55-1.3)
[2024-07-10 08:43] LABS: BILIRUBIN,TOTAL 1.1 mg/dL (0.2-1); TOT PROT 4.9 g/dl (6.4-8.2)
[2024-07-10 09:41] LABS: PLATELET COUNT 18 10^3/uL (134-434)
[2024-07-10] MEDS: FENTANYL PATCH WASTE TD PRN (22:28)
[2024-07-11 09:44] LABS: BASO % 0.5 % (0-2.0); HEMATOCRIT 25.4 % (35.4-49); LYMPH % 12.3 % (8-40); MCHC 31.5 g/dl (32.0-35.9); MEAN CELL VOLUME 82.4 fl (80-96); MEAN PLT VOLUME 8.5 fl (7.5-11.1); MONO % 5.3 % (3.8-10.2); NEUT % 81.9 % (42.8-82.8); RBC 3.09 M/mm3 (4.00-5.60); RDW 24.3 % (11.9-15.9)
[2024-07-11 09:46] LABS: WHITE BLOOD COUNT 2.6 K/mm3 (4.0-10.0)
[2024-07-11 09:57] LABS: PLATELET COUNT 11 10^3/uL (134-434)
[2024-07-12 09:50] LABS: BASO % 0.3 % (0-2.0); EOS % 0.2 % (0-4.5); HEMATOCRIT 24.5 % (35.4-49); HEMOGLOBIN 7.7 GM/dL (11.7-16.9); LYMPH % 15.5 % (8-40); MCHC 31.6 g/dl (32.0-35.9); MEAN CELL VOLUME 82.4 fl (80-96); MEAN PLT VOLUME 8.2 fl (7.5-11.1); MONO % 7.8 % (3.8-10.2); NEUT % 76.2 % (42.8-82.8); RBC 2.97 M/mm3 (4.00-5.60); RDW 25.3 % (11.9-15.9); WHITE BLOOD COUNT 2.2 K/mm3 (4.0-10.0)
[2024-07-12 10:08] LABS: POTASSIUM 3.7 mmol/L (3.5-5.1)
[2024-07-12 10:09] LABS: CALCIUM 7.9 mg/dL (8.5-10.1)
[2024-07-12 10:11] LABS: ALBUMIN 2.6 g/dl (3.4-5.0)
[2024-07-12 10:15] LABS: BILIRUBIN,TOTAL 1.6 mg/dL (0.2-1); TOT PROT 5.3 g/dl (6.4-8.2)
[2024-07-12 10:19] LABS: CREATININE 0.5 mg/dL (0.55-1.3)
[2024-07-12 11:04] LABS: ANISOCYTOSIS 2+; CORRECTED WBC 1.96 K/mm3; MACROCYTOSIS 0; OVALOCYTE 1+
[2024-07-12 11:21] LABS: PLATELET COUNT 26 10^3/uL (134-434)
[2024-07-12] MEDS: HYDROmorphone HCL 2 MG TABLET PO PRN (22:45)
[2024-07-13 10:12] LABS: HEMOGLOBIN 7.7 GM/dL (11.7-16.9); MCH 25.3 pg (25.7-33.7); MCHC 30.9 g/dl (32.0-35.9); MEAN PLT VOLUME 7.1 fl (7.5-11.1); RBC 3.05 M/mm3 (4.00-5.60); RDW 25.1 % (11.9-15.9)
[2024-07-13 10:18] LABS: POTASSIUM 3.6 mmol/L (3.5-5.1)
[2024-07-13 10:21] LABS: CALCIUM 7.4 mg/dL (8.5-10.1)
[2024-07-13 10:22] LABS: ALBUMIN 2.6 g/dl (3.4-5.0); BLOOD UREA NITROGEN 15.5 mg/dL (7-18)
[2024-07-13 10:25] LABS: CREATININE 0.7 mg/dL (0.55-1.3)
[2024-07-13 10:26] LABS: BILIRUBIN,TOTAL 1.8 mg/dL (0.2-1); TOT PROT 5.2 g/dl (6.4-8.2); WHITE BLOOD COUNT 2.4 K/mm3 (4.0-10.0)
[2024-07-13 12:38] LABS: ANISOCYTOSIS 3+; CORRECTED WBC 2.11 K/mm3; MACROCYTOSIS 0; OVALOCYTE 2+
[2024-07-13 12:58] LABS: PLATELET COUNT 19 10^3/uL (134-434)
[2024-07-14 09:56] LABS: HEMATOCRIT 22.3 % (35.4-49); MCH 25.4 pg (25.7-33.7); MEAN CELL VOLUME 81.7 fl (80-96); MEAN PLT VOLUME 8.1 fl (7.5-11.1); RBC 2.73 M/mm3 (4.00-5.60); RDW 25.2 % (11.9-15.9)
[2024-07-14 09:58] LABS: WHITE BLOOD COUNT 2.2 K/mm3 (4.0-10.0)
[2024-07-14 10:16] LABS: HEMOGLOBIN 6.9 GM/dL (11.7-16.9)
[2024-07-14 10:17] LABS: PLATELET COUNT 26 10^3/uL (134-434)
[2024-07-14 10:44] LABS: ANISOCYTOSIS 2+; CORRECTED WBC 1.86 K/mm3; MACROCYTOSIS 1+; TEAR DROP CELLS 1+
[2024-07-14] MEDS: HYDROmorphone HCL 2 MG TABLET PO PRN (19:09)
[2024-07-15 13:33] LABS: HEMATOCRIT 31.7 % (35.4-49); HEMOGLOBIN 10.1 GM/dL (11.7-16.9); MCH 26.1 pg (25.7-33.7); MCHC 31.8 g/dl (32.0-35.9); MEAN CELL VOLUME 81.9 fl (80-96); MEAN PLT VOLUME 8.6 fl (7.5-11.1); RBC 3.87 M/mm3 (4.00-5.60); RDW 23.1 % (11.9-15.9)
[2024-07-15 13:34] LABS: WHITE BLOOD COUNT 3.5 K/mm3 (4.0-10.0)
[2024-07-15 14:21] LABS: ANISOCYTOSIS 2+; CORRECTED WBC 2.78 K/mm3; MACROCYTOSIS 1+; OVALOCYTE 2+
[2024-07-15 14:26] LABS: PLATELET COUNT 11 10^3/uL (134-434)
[2024-07-16 09:42] LABS: BASO % 1.4 % (0-2.0); EOS % 0.5 % (0-4.5); HEMATOCRIT 27.7 % (35.4-49); HEMOGLOBIN 8.8 GM/dL (11.7-16.9); LYMPH % 12.2 % (8-40); MCH 26.3 pg (25.7-33.7); MCHC 31.8 g/dl (32.0-35.9); MEAN CELL VOLUME 82.7 fl (80-96); MEAN PLT VOLUME 7.7 fl (7.5-11.1); MONO % 8.9 % (3.8-10.2); RBC 3.35 M/mm3 (4.00-5.60); RDW 22.7 % (11.9-15.9)
[2024-07-16 09:46] LABS: WHITE BLOOD COUNT 2.9 K/mm3 (4.0-10.0)
[2024-07-16 09:52] LABS: PLATELET COUNT 23 10^3/uL (134-434)
[2024-07-17 10:47] LABS: HEMATOCRIT 28.4 % (35.4-49); HEMOGLOBIN 9.1 GM/dL (11.7-16.9); MCH 26.8 pg (25.7-33.7); MCHC 32.1 g/dl (32.0-35.9); MEAN CELL VOLUME 83.5 fl (80-96); MEAN PLT VOLUME 5.2 fl (7.5-11.1); RDW 22.3 % (11.9-15.9); WHITE BLOOD COUNT 2.7 K/mm3 (4.0-10.0)
[2024-07-17 10:55] LABS: PLATELET COUNT 11 10^3/uL (134-434)
[2024-07-17 11:21] LABS: ANISOCYTOSIS 3+; CORRECTED WBC 2.21 K/mm3; MACROCYTOSIS 1+; OVALOCYTE 1+
[2024-07-18] MEDS: ACETAMINOPHEN 325 MG TABLET (FP) PO ONE (06:28)
[2024-07-18 10:11] LABS: HEMATOCRIT 27.3 % (35.4-49); HEMOGLOBIN 8.7 GM/dL (11.7-16.9); MCH 26.5 pg (25.7-33.7); MCHC 31.8 g/dl (32.0-35.9); MEAN CELL VOLUME 83.5 fl (80-96); MEAN PLT VOLUME 6.2 fl (7.5-11.1); RBC 3.27 M/mm3 (4.00-5.60); RDW 22.7 % (11.9-15.9); WHITE BLOOD COUNT 3.5 K/mm3 (4.0-10.0)
[2024-07-18 10:22] LABS: PLATELET COUNT 20 10^3/uL (134-434)
[2024-07-18 10:38] LABS: POTASSIUM 3.3 mmol/L (3.5-5.1)
[2024-07-18 10:40] LABS: ALBUMIN 2.3 g/dl (3.4-5.0); BLOOD UREA NITROGEN 23.2 mg/dL (7-18); CALCIUM 7.1 mg/dL (8.5-10.1)
[2024-07-18 10:43] LABS: ANISOCYTOSIS 3+; CORRECTED WBC 3.04 K/mm3; MACROCYTOSIS 1+
[2024-07-18 10:45] LABS: TOT PROT 4.8 g/dl (6.4-8.2)
[2024-07-18] MEDS: PIPERACILLIN/TAZOB 3.375 GM 50 ML IVPB SCH (20:08)
[2024-07-19] MEDS: ACETAMINOPHEN 325 MG TABLET (FP) PO ONE (02:22)
[2024-07-19 08:12] LABS: EPI CELLS 4 /uL (0-25.1); HYALINE CASTS 3 /uL (0-3.1); PH,URINE 5.5 (5.0-8.0); URINE APPEARANCE TURBID; URINE BACTERIA >9,000 /uL (0-1359); URINE BILIRUBIN 2+ (NEGATIVE); URINE COLOR ORANGE; URINE GLUCOSE (UA) NEGATIVE (NEGATIVE); URINE KETONE NEGATIVE (NEGATIVE); URINE LEUK ESTERASE 3+ (NEGATIVE); URINE NITRITE POSITIVE (NEGATIVE); URINE PROTEIN 3+ (NEGATIVE); URINE WBC 2465 /uL (0-25.8)
[2024-07-19 09:55] LABS: HEMATOCRIT 22.4 % (35.4-49); HEMOGLOBIN 7.1 GM/dL (11.7-16.9); MCH 26.2 pg (25.7-33.7); MCHC 31.7 g/dl (32.0-35.9); MEAN CELL VOLUME 82.7 fl (80-96); MEAN PLT VOLUME 6.7 fl (7.5-11.1); RBC 2.71 M/mm3 (4.00-5.60); RDW 23.1 % (11.9-15.9)
[2024-07-19 09:56] LABS: WHITE BLOOD COUNT 2.9 K/mm3 (4.0-10.0)
[2024-07-19 10:02] LABS: URINE CRYSTALS NONE SEEN /hpf; URINE RBC 21309 /uL (0-23.9); YEAST NOT PRESENT (NEGATIVE)
[2024-07-19 10:29] LABS: ANISOCYTOSIS 2+; CORRECTED WBC 2.61 K/mm3; MACROCYTOSIS 1+; TEAR DROP CELLS 1+
[2024-07-19 10:33] LABS: PLATELET COUNT 15 10^3/uL (134-434)
[2024-07-19] MEDS: VANCOMYCIN/WATER FOR INJ (PEG) 1,000 MG/200 ML BAG IVPB SCH (12:37)
[2024-07-19 14:12] LABS: HEMATOCRIT 22.1 % (35.4-49); HEMOGLOBIN 7.1 GM/dL (11.7-16.9); MCH 26.1 pg (25.7-33.7); MCHC 31.9 g/dl (32.0-35.9); MEAN CELL VOLUME 81.6 fl (80-96); MEAN PLT VOLUME 6.6 fl (7.5-11.1); RBC 2.71 M/mm3 (4.00-5.60); RDW 23.8 % (11.9-15.9); WHITE BLOOD COUNT 2.8 K/mm3 (4.0-10.0)
[2024-07-19 14:18] LABS: PLATELET COUNT 14 10^3/uL (134-434)
[2024-07-20 08:33] LABS: CHLORIDE 104 mmol/L (98-107); POTASSIUM 3.9 mmol/L (3.5-5.1); SODIUM 138 mmol/L (136-145)
[2024-07-20 08:36] LABS: ANION GAP 14 mmol/L (4-13); CO2 20 mmol/L (21-32); GLUCOSE,RANDOM 103 mg/dL (74-106)
[2024-07-20 08:39] LABS: CREATININE 1.7 mg/dL (0.55-1.3)
[2024-07-20 08:44] LABS: HEMATOCRIT 26.5 % (35.4-49); HEMOGLOBIN 8.5 GM/dL (11.7-16.9); MCH 26.4 pg (25.7-33.7); MCHC 32.1 g/dl (32.0-35.9); MEAN CELL VOLUME 82.2 fl (80-96); RBC 3.22 M/mm3 (4.00-5.60); RDW 24.3 % (11.9-15.9)
[2024-07-20 08:45] LABS: BLOOD UREA NITROGEN 55.2 mg/dL (7-18); CALCIUM 6.2 mg/dL (8.5-10.1)
[2024-07-20 09:08] LABS: MEAN PLT VOLUME 8.3 fl (7.5-11.1)
[2024-07-20 09:54] LABS: ANISOCYTOSIS 2+; MACROCYTOSIS 0; OVALOCYTE 1+; TARGET CELLS 1+
[2024-07-20 09:57] LABS: PLATELET COUNT 11 10^3/uL (134-434)
[2024-07-20] MEDS: CEFAZOLIN 1 GM/D5W 1 GM/50 ML BAG IVPB SCH (14:52)
[2024-07-21 08:42] LABS: HEMATOCRIT 22.1 % (35.4-49); HEMOGLOBIN 7.2 GM/dL (11.7-16.9); MCH 26.2 pg (25.7-33.7); MCHC 32.5 g/dl (32.0-35.9); MEAN CELL VOLUME 80.9 fl (80-96); MEAN PLT VOLUME 8.3 fl (7.5-11.1); RBC 2.74 M/mm3 (4.00-5.60); RDW 23.1 % (11.9-15.9); WHITE BLOOD COUNT 3.1 K/mm3 (4.0-10.0)
[2024-07-21 09:34] LABS: ANISOCYTOSIS 2+; MACROCYTOSIS 1+; TEAR DROP CELLS 1+
[2024-07-21 09:39] LABS: PLATELET COUNT 10 10^3/uL (134-434)
[2024-07-21] MEDS: ROMIPLOSTIM 125 MCG SQ ONE ×2 (21:17→21:19)
[2024-07-22] MEDS: BICALUTAMIDE 50 MG TABLET (FP) PO SCH (09:37)
[2024-07-23] MEDS: MELATONIN 5 MG TABLETS PO ONE (00:47)
[2024-07-23 09:24] LABS: CHLORIDE 108 mmol/L (98-107); SODIUM 140 mmol/L (136-145)
[2024-07-23 09:26] LABS: POTASSIUM 2.6 mmol/L (3.5-5.1)
[2024-07-23 09:33] LABS: ANION GAP 11 mmol/L (4-13); CO2 21 mmol/L (21-32); GLUCOSE,RANDOM 102 mg/dL (74-106)
[2024-07-23 09:34] LABS: SGPT/ALT 37 U/L (13-61)
[2024-07-23 09:35] LABS: BILIRUBIN,TOTAL 3.2 mg/dL (0.2-1); SGOT/AST 112 U/L (15-37); TOT PROT 4.7 g/dl (6.4-8.2)
[2024-07-23 09:36] LABS: CALCIUM 7.2 mg/dL (8.5-10.1); CREATININE 0.8 mg/dL (0.55-1.3)
[2024-07-23 09:39] LABS: ALK PHOS 961 U/L (45-117)
[2024-07-23 09:54] LABS: HEMOGLOBIN 7.3 GM/dL (11.7-16.9); MCHC 31.8 g/dl (32.0-35.9); MEAN CELL VOLUME 81.6 fl (80-96); MEAN PLT VOLUME 8.3 fl (7.5-11.1); RBC 2.82 M/mm3 (4.00-5.60); RDW 23.9 % (11.9-15.9); WHITE BLOOD COUNT 3.1 K/mm3 (4.0-10.0)
[2024-07-23] MEDS: VANCOMYCIN 1,000 MG in DEXTROSE 5%-WATER - 250 ML IVPB ONE (10:50)
[2024-07-23 11:30] LABS: ANISOCYTOSIS 2+; MACROCYTOSIS 1+; OVALOCYTE 1+
[2024-07-23 11:34] LABS: PLATELET COUNT 10 10^3/uL (134-434)
[2024-07-23] MEDS: KCL 10 MEQ IVPB 10 MEQ/100 ML INFUS.BAG IVPB SCH (13:27)
[2024-07-23] MEDS: POTASSIUM CHLORIDE TABS 20 MEQ TABLET.ER (FP) PO ONE (15:04)
[2024-07-23] MEDS: CEFAZOLIN 2 GM/D5W 2 GM/50 ML ML IVPB SCH (17:20)
[2024-07-23 19:23] LABS: POTASSIUM 3.7 mmol/L (3.5-5.1)
[2024-07-23 19:25] LABS: CALCIUM 7.2 mg/dL (8.5-10.1)
[2024-07-23 19:26] LABS: BLOOD UREA NITROGEN 25.4 mg/dL (7-18)
[2024-07-23 19:29] LABS: CREATININE 0.7 mg/dL (0.55-1.3)
[2024-07-24 13:47] LABS: HEMATOCRIT 25.7 % (35.4-49); HEMOGLOBIN 7.8 GM/dL (11.7-16.9); MCH 26.3 pg (25.7-33.7); MCHC 30.4 g/dl (32.0-35.9); MEAN CELL VOLUME 86.5 fl (80-96); RBC 2.97 M/mm3 (4.00-5.60); RDW 25.3 % (11.9-15.9)
[2024-07-24 13:48] LABS: MEAN PLT VOLUME 4.4 fl (7.5-11.1); WHITE BLOOD COUNT 4.6 K/mm3 (4.0-10.0)
[2024-07-24] MEDS: fentaNYL 100mcg/hr PATCH.TD72 TD SCH (14:12)
[2024-07-24] MEDS: FENTANYL PATCH WASTE TD PRN (14:16)
[2024-07-24 14:18] LABS: POTASSIUM 4.2 mmol/L (3.5-5.1)
[2024-07-24 14:22] LABS: ALBUMIN 1.9 g/dl (3.4-5.0); BLOOD UREA NITROGEN 22.9 mg/dL (7-18); CALCIUM 7.2 mg/dL (8.5-10.1)
[2024-07-24 14:24] LABS: PLATELET COUNT 9 10^3/uL (134-434)
[2024-07-24 14:25] LABS: CREATININE 0.7 mg/dL (0.55-1.3)
[2024-07-24 14:27] LABS: TOT PROT 4.4 g/dl (6.4-8.2)
[2024-07-24] MEDS: POTASSIUM CHLORIDE TABS 20 MEQ TABLET.ER (FP) PO ONE (16:16)
[2024-07-24] MEDS ORDERED: PORTA CATH FLUSH 10 ML IVPUSH PRN (18:28)
[2024-07-25 10:20] LABS: HEMATOCRIT 29.8 % (35.4-49); HEMOGLOBIN 8.8 GM/dL (11.7-16.9); MCH 26.2 pg (25.7-33.7); MCHC 29.5 g/dl (32.0-35.9); MEAN CELL VOLUME 88.9 fl (80-96); MEAN PLT VOLUME 8.6 fl (7.5-11.1); RBC 3.35 M/mm3 (4.00-5.60); RDW 26.2 % (11.9-15.9)
[2024-07-25 10:32] LABS: PLATELET COUNT 8 10^3/uL (134-434)
[2024-07-25 10:43] LABS: CHLORIDE 112 mmol/L (98-107); POTASSIUM 5.5 mmol/L (3.5-5.1); SODIUM 143 mmol/L (136-145)
[2024-07-25 10:45] LABS: ALBUMIN 2.1 g/dl (3.4-5.0); ANION GAP 21 mmol/L (4-13); BLOOD UREA NITROGEN 37.5 mg/dL (7-18); CALCIUM 7.7 mg/dL (8.5-10.1); CO2 10 mmol/L (21-32)
[2024-07-25 10:47] LABS: GLUCOSE,RANDOM 37 mg/dL (74-106)
[2024-07-25 10:48] LABS: SGPT/ALT 30 U/L (13-61)
[2024-07-25 10:49] LABS: CREATININE 1.2 mg/dL (0.55-1.3); SGOT/AST 166 U/L (15-37)
[2024-07-25 10:50] LABS: BILIRUBIN,TOTAL 3.6 mg/dL (0.2-1); TOT PROT 4.8 g/dl (6.4-8.2)
[2024-07-25 10:55] LABS: ALK PHOS 917 U/L (45-117)
[2024-07-25] MEDS ORDERED: DEXTROSE 50%-WATER 25 GM/50 ML DISP.SYRIN ONE (10:59)
[2024-07-25] MEDS: DEXTROSE 50%-WATER 25 GM/50 ML DISP.SYRIN IVPUSH ONE (11:21)
[2024-07-25 12:12] LABS: ANISOCYTOSIS 2+; MACROCYTOSIS 1+; OVALOCYTE 1+; TARGET CELLS 1+; TEAR DROP CELLS 1+
[2024-07-25 15:05] LABS: EPI CELLS 5 /uL (0-25.1); HYALINE CASTS 0 /uL (0-3.1); PH,URINE 5.5 (5.0-8.0); URINE APPEARANCE TURBID; URINE BILIRUBIN 1+ (NEGATIVE); URINE COLOR ORANGE; URINE GLUCOSE (UA) TRACE (NEGATIVE); URINE KETONE TRACE (NEGATIVE); URINE LEUK ESTERASE 2+ (NEGATIVE); URINE NITRITE NEGATIVE (NEGATIVE); URINE PROTEIN 2+ (NEGATIVE); URINE UROBILINOGEN 0.2 mg/dL (0.2-1.0); URINE WBC 450 /uL (0-25.8)
[2024-07-25] MEDS: DEXTROSE 5%-0.45% SALINE 1,000 ML IV SCH (15:13)
[2024-07-25 15:15] LABS: URINE BACTERIA 98.2 /uL (0-1359); URINE RBC 109.8 /uL (0-23.9)
[2024-07-25 17:48] LABS: HEMATOCRIT 25.3 % (35.4-49); HEMOGLOBIN 7.5 GM/dL (11.7-16.9); MCH 26.5 pg (25.7-33.7); MCHC 29.4 g/dl (32.0-35.9); MEAN PLT VOLUME 8.2 fl (7.5-11.1); RBC 2.81 M/mm3 (4.00-5.60); RDW 25.8 % (11.9-15.9); WHITE BLOOD COUNT 8.5 K/mm3 (4.0-10.0)
[2024-07-25 18:05] LABS: PLATELET COUNT 35 10^3/uL (134-434)
[2024-07-25 19:30] LABS: ANISOCYTOSIS 2+; CORRECTED WBC 7.02 K/mm3; MACROCYTOSIS 1+; OVALOCYTE 2+
[2024-07-25] MEDS: MUPIROCIN 2% TOPICAL OINTMENT FOR DECOLONIZATION NS SCH (22:45)
[2024-07-25] MEDS: CHLORHEXIDINE GLUCONATE 4% CLEANSER FOR DECOLONIZATION TP SCH (22:45)
[2024-07-26] MEDS: SODIUM CHLORIDE 1,000 ML IV STA ×3 (01:30→08:35)
[2024-07-26 02:04] LABS: ARTERIAL BLOOD GAS BASE EXCESS -27.8 mmol/L (-2-2); ARTERIAL BLOOD GAS PCO2 < 16.70 mmHg (35-45); ARTERIAL BLOOD GAS PO2 150.1 mmHg (80-100)
[2024-07-26 02:10] LABS: ARTERIAL BLOOD GAS pH 6.871 (7.350-7.450)
[2024-07-26] MEDS: SODIUM CHLORIDE 1,000 ML IV SCH ×3 (02:18→11:17)
[2024-07-26] MEDS: SODIUM CHLORIDE 0.9% 500 ML INFUS.BAG IV ONE (02:32)
[2024-07-26] MEDS ORDERED: SODIUM BICARBONATE 8.4% 50 MEQ/50 ML VIAL ONE (02:45)
[2024-07-26] MEDS: SODIUM CHLORIDE 500 ML IV STA (02:50)
[2024-07-26 03:10] LABS: CHLORIDE 113 mmol/L (98-107); SODIUM 141 mmol/L (136-145)
[2024-07-26 03:12] LABS: CALCIUM 7.9 mg/dL (8.5-10.1)
[2024-07-26 03:13] LABS: ALBUMIN 1.7 g/dl (3.4-5.0); CO2 4 mmol/L (21-32); GLUCOSE,RANDOM 131 mg/dL (74-106)
[2024-07-26 03:16] LABS: CREATININE 1.5 mg/dL (0.55-1.3); HEMATOCRIT 18.3 % (35.4-49); MCH 26.9 pg (25.7-33.7); MCHC 26.9 g/dl (32.0-35.9); MEAN PLT VOLUME 6.6 fl (7.5-11.1); RBC 1.83 M/mm3 (4.00-5.60); RDW 27.4 % (11.9-15.9); SGOT/AST 802 U/L (15-37); SGPT/ALT 86 U/L (13-61); WHITE BLOOD COUNT 9.8 K/mm3 (4.0-10.0)
[2024-07-26 03:17] LABS: BILIRUBIN,TOTAL 3.5 mg/dL (0.2-1)
[2024-07-26 03:18] LABS: TOT PROT 3.9 g/dl (6.4-8.2)
[2024-07-26 03:19] LABS: HEMOGLOBIN 4.9 GM/dL (11.7-16.9)
[2024-07-26 03:20] LABS: ALK PHOS 599 U/L (45-117); ANION GAP 24 mmol/L (4-13)
[2024-07-26] MEDS: SODIUM BICARBONATE 8.4% 50 MEQ/50 ML VIAL IVPUSH ONE (03:48)
[2024-07-26] MEDS: NOREPINEPHRINE BITARTRATE 8,000 MCG in DEXTROSE 5%-WATER - 492 ML IV SCH (04:00)
[2024-07-26] MEDS ORDERED: RAPID SEQUENCE INTUBATION KIT NR ONE ×2 (04:06→05:01)
[2024-07-26 04:14] LABS: PLATELET COUNT 14 10^3/uL (134-434)
[2024-07-26] MEDS ORDERED: PIPERACILLIN/TAZOB 3.375 GM 3.375 GM in DEXTROSE 5%-WATER - 50 ML IVPB SCH ×2 (04:30→04:45)
[2024-07-26] MEDS ORDERED: VANCOMYCIN 1,000 MG in DEXTROSE 5%-WATER - 250 ML IVPB SCH ×2 (04:30→04:45)
[2024-07-26 04:34] LABS: ARTERIAL BLD GAS O2 SATURATION 98.7 % (95-98); ARTERIAL BLOOD GAS BASE EXCESS -22.6 mmol/L (-2-2); ARTERIAL BLOOD GAS PO2 183.2 mmHg (80-100)
[2024-07-26 04:56] LABS: ARTERIAL BLOOD GAS pH 7.079 (7.350-7.450)
[2024-07-26] MEDS ORDERED: DEXMEDETOMIDINE PREMIX 400 MCG/100 ML BAG IVPB ONE (04:59)
[2024-07-26] MEDS ORDERED: SODIUM BICARBONATE 8.4% 50 MEQ/50 ML DISP.SYRIN ONE (05:14)
[2024-07-26] MEDS ORDERED: EPINEPHrine 1:10,000 (P-F SYR) 1 MG/10 ML DISP.SYRIN ONE (05:14)
[2024-07-26 05:36] LABS: LACTIC ACID 21.1 mmol/L (0.4-2.0)
[2024-07-26 05:48] LABS: HEMATOCRIT 15.1 % (35.4-49); MEAN CELL VOLUME 96.5 fl (80-96); MEAN PLT VOLUME 9.9 fl (7.5-11.1); RBC 1.56 M/mm3 (4.00-5.60); RDW 26.4 % (11.9-15.9)
[2024-07-26] MEDS ORDERED: VASopressin 20 UNITS/ML VIAL IV ONE (05:52)
[2024-07-26] MEDS ORDERED: LACTATED RINGERS SOLUTION 1,000 ML/1,000 ML INFUS.BAG IV ONE (05:53)
[2024-07-26] MEDS: VASopressin 40 UNITS/100 ML BAG IV SCH (05:59)
[2024-07-26] MEDS ORDERED: MEROPENEM 500 MG in DEXTROSE 5%-WATER 100 ML IVPB SCH ×2 (06:00→10:00)
[2024-07-26 06:06] LABS: CHLORIDE 113 mmol/L (98-107); SODIUM 145 mmol/L (136-145)
[2024-07-26] MEDS: LACTATED RINGERS SOLUTION 1,000 ML/1,000 ML INFUS.BAG IV ONE (06:20)
[2024-07-26] MEDS: DEXTROSE 50%-WATER 25 GM/50 ML DISP.SYRIN IVPUSH ONE ×3 (06:24→14:12)
[2024-07-26] MEDS: INSULIN REGULAR HUMAN 100 UNITS/ML *VIAL IVPUSH ONE ×3 (06:25→14:12)
[2024-07-26] MEDS: CALCIUM GLUCONATE 10% - 1,000 MG/10 ML VIAL IVPUSH ONE (06:25)
[2024-07-26 06:35] LABS: WHITE BLOOD COUNT 9.6 K/mm3 (4.0-10.0)
[2024-07-26 06:37] LABS: HEMOGLOBIN 4.2 GM/dL (11.7-16.9); PLATELET COUNT 17 10^3/uL (134-434)
[2024-07-26 06:52] LABS: ARTERIAL BLD GAS O2 SATURATION 99.5 % (95-98); ARTERIAL BLOOD GAS BASE EXCESS -23.5 mmol/L (-2-2); ARTERIAL BLOOD GAS PO2 396.3 mmHg (80-100)
[2024-07-26 06:55] LABS: ARTERIAL BLOOD GAS pH 6.883 (7.350-7.450); VENT MODE A/C; VENT RATE 12
[2024-07-26 07:01] LABS: ALBUMIN 1.6 g/dl (3.4-5.0); ALK PHOS 583 U/L (45-117); ANION GAP 23 mmol/L (4-13); BILIRUBIN,TOTAL 3.3 mg/dL (0.2-1); BLOOD UREA NITROGEN 41.1 mg/dL (7-18); CALCIUM 7.5 mg/dL (8.5-10.1); CHLORIDE 113 mmol/L (98-107); CO2 8 mmol/L (21-32); CREATININE 1.4 mg/dL (0.55-1.3); GLUCOSE,RANDOM 104 mg/dL (74-106); MAGNESIUM 2.6 mg/dL (1.8-2.4); PHOSPHOROUS 7.3 mg/dL (2.5-4.9); POTASSIUM 6.7 mmol/L (3.5-5.1); SGOT/AST 1254 U/L (15-37); SGPT/ALT 134 U/L (13-61); SODIUM 144 mmol/L (136-145); TOT PROT 3.6 g/dl (6.4-8.2)
[2024-07-26 07:02] LABS: ALBUMIN 1.6 g/dl (3.4-5.0); ALK PHOS 574 U/L (45-117); ANION GAP 24 mmol/L (4-13); BILIRUBIN,TOTAL 3.4 mg/dL (0.2-1); BLOOD UREA NITROGEN 39.8 mg/dL (7-18); CALCIUM 7.5 mg/dL (8.5-10.1); CO2 8 mmol/L (21-32); CREATININE 1.4 mg/dL (0.55-1.3); GLUCOSE,RANDOM 104 mg/dL (74-106); POTASSIUM 6.7 mmol/L (3.5-5.1); SGOT/AST 1276 U/L (15-37); SGPT/ALT 137 U/L (13-61); TOT PROT 3.6 g/dl (6.4-8.2)
[2024-07-26 07:03] LABS: PROTHROMBIN TIME (PATIENT) 52.1 SEC (9.7-13.0)
[2024-07-26 07:14] LABS: INR 4.83 (0.83-1.09)
[2024-07-26 07:33] LABS: BILIRUBIN,DIRECT 2.6 mg/dL (0.0-0.2)
[2024-07-26] MEDS: HYDROCORTISONE SOD SUCCINATE 100 MG/2 ML VIAL IVPB SCH (08:20)
[2024-07-26] MEDS: VANCOMYCIN/WATER FOR INJ (PEG) 1,000 MG/200 ML BAG IVPB SCH (08:20)
[2024-07-26 08:21] LABS: ANISOCYTOSIS 2+; CORRECTED WBC 8.52 K/mm3; MACROCYTOSIS 1+; OVALOCYTE 2+; TEAR DROP CELLS 2+
[2024-07-26] MEDS: NOREPINEPHRINE BITARTRATE/D5W 8 MG/250 ML BAG IVPB SCH (08:22)
[2024-07-26] MEDS ORDERED: ROMIPLOSTIM 125 MCG SQ ONE (08:42)
[2024-07-26] MEDS ORDERED: FENTANYL PATCH WASTE TD PRN ×2 (08:42)
[2024-07-26] MEDS ORDERED: PORTA CATH FLUSH 10 ML IVPUSH PRN (08:42)
[2024-07-26 08:54] LABS: ANISOCYTOSIS 2+; CORRECTED WBC 8.14 K/mm3; MACROCYTOSIS 1+; OVALOCYTE 2+; TEAR DROP CELLS 1+
[2024-07-26] MEDS ORDERED: MIDAZOLAM 100 MG in SODIUM CHLORIDE 100 ML IVPB SCH (09:00)
[2024-07-26] MEDS ORDERED: MIDAZOLAM IN 0.9 % SOD.CHLORID 100 MG/100 ML PLAST..BAG IVPB SCH (09:02)
[2024-07-26] MEDS: FENTANYL NS IVPB 500 MCG/100 ML BAG IVPB SCH (09:06)
[2024-07-26] MEDS ORDERED: DOPAMINE 400 MG/D5W - 400,000 MCG/250 ML INFUS.BAG IVPB ONE (09:21)
[2024-07-26] MEDS ORDERED: MUPIROCIN 2% TOPICAL OINTMENT FOR DECOLONIZATION NS SCH (10:00)
[2024-07-26] MEDS: MIDAZOLAM HCL 2 MG/2 ML SINGLE DOSE VIAL IVPUSH ONE (11:15)
[2024-07-26] MEDS: SODIUM BICARBONATE 8.4% - 75 MEQ in DEXTROSE 5%-WATER - 1,000 ML IV SCH (11:16)
[2024-07-26] MEDS: DEXTROSE 5%-0.45% SALINE 1,000 ML IV SCH (11:17)
[2024-07-26] MEDS: DOPAMINE 400 MG/D5W - 400,000 MCG/250 ML INFUS.BAG IVPB SCH (11:18)
[2024-07-26 12:11] LABS: HEMATOCRIT 33.1 % (35.4-49); HEMOGLOBIN 10.3 GM/dL (11.7-16.9); MCH 29.1 pg (25.7-33.7); MEAN CELL VOLUME 93.8 fl (80-96); MEAN PLT VOLUME 7.9 fl (7.5-11.1); PLATELET COUNT 49 10^3/uL (134-434); RBC 3.53 M/mm3 (4.00-5.60); RDW 16.3 % (11.9-15.9)
[2024-07-26 12:13] LABS: WHITE BLOOD COUNT 7.3 K/mm3 (4.0-10.0)
[2024-07-26 12:14] LABS: INR 2.38 (0.83-1.09); PROTHROMBIN TIME (PATIENT) 26.7 SEC (9.7-13.0)
[2024-07-26 12:17] LABS: ACTIVATED PTT 96.4 SECONDS (25.2-36.5)
[2024-07-26 12:26] LABS: CHLORIDE 109 mmol/L (98-107); SODIUM 141 mmol/L (136-145)
[2024-07-26 12:29] LABS: BLOOD UREA NITROGEN 37.7 mg/dL (7-18); CO2 11 mmol/L (21-32); GLUCOSE,RANDOM 184 mg/dL (74-106); MAGNESIUM 2.7 mg/dL (1.8-2.4)
[2024-07-26 12:32] LABS: CREATININE 1.4 mg/dL (0.55-1.3); PHOSPHOROUS 7.8 mg/dL (2.5-4.9); SGPT/ALT 537 U/L (13-61)
[2024-07-26 12:33] LABS: BILIRUBIN,TOTAL 3.2 mg/dL (0.2-1)
[2024-07-26 12:34] LABS: TOT PROT 5.4 g/dl (6.4-8.2)
[2024-07-26 12:35] LABS: ALBUMIN 2.4 g/dl (3.4-5.0); ALK PHOS 666 U/L (45-117); ANION GAP 22 mmol/L (4-13); LACTIC ACID 17.7 mmol/L (0.4-2.0)
[2024-07-26 12:58] LABS: SGOT/AST 5101 U/L (15-37)
[2024-07-26] MEDS: MEROPENEM-0.9% SODIUM CHLORIDE 500 MG/50 ML BAG IVPB SCH (14:01)
[2024-07-26] MEDS: POLYETHYLENE GLYCOL (HEALTHYLAX) 3350 17 GM PACKET PO SCH (14:01)
[2024-07-26] MEDS: BICALUTAMIDE 50 MG TABLET (FP) PO SCH (14:01)
[2024-07-26] MEDS: MUPIROCIN 2% TOPICAL OINTMENT FOR DECOLONIZATION NS SCH (14:12)
[2024-07-26] MEDS: PHENYLEPHRINE NS PREMIX 50,000 MCG/500 ML BAG CVP SCH (14:12)
[2024-07-26 15:14] LABS: ARTERIAL BLD GAS O2 SATURATION 98.4 % (95-98); ARTERIAL BLOOD GAS BASE EXCESS -24.8 mmol/L (-2-2); ARTERIAL BLOOD GAS PO2 204.7 mmHg (80-100)
[2024-07-26 15:19] LABS: VENT MODE A/C; VENT RATE 12
[2024-07-26 15:20] LABS: ARTERIAL BLOOD GAS pH 6.867 (7.350-7.450)
[2024-07-26 16:23] LABS: CHLORIDE 107 mmol/L (98-107); SODIUM 137 mmol/L (136-145)
[2024-07-26 16:25] LABS: ALBUMIN 2.1 g/dl (3.4-5.0); CALCIUM 7.5 mg/dL (8.5-10.1)
[2024-07-26 16:26] LABS: CO2 12 mmol/L (21-32); GLUCOSE,RANDOM 324 mg/dL (74-106)
[2024-07-26 16:27] LABS: BLOOD UREA NITROGEN 36.6 mg/dL (7-18)
[2024-07-26 16:29] LABS: CREATININE 1.5 mg/dL (0.55-1.3); SGPT/ALT 933 U/L (13-61)
[2024-07-26 16:30] LABS: BILIRUBIN,TOTAL 3.3 mg/dL (0.2-1); TOT PROT 4.7 g/dl (6.4-8.2)
[2024-07-26 16:40] LABS: HEMOGLOBIN 8.1 GM/dL (11.7-16.9); MCH 28.9 pg (25.7-33.7); MCHC 30.9 g/dl (32.0-35.9); MEAN CELL VOLUME 93.4 fl (80-96); MEAN PLT VOLUME 7.7 fl (7.5-11.1); PLATELET COUNT 93 10^3/uL (134-434); RBC 2.79 M/mm3 (4.00-5.60); RDW 15.7 % (11.9-15.9); WHITE BLOOD COUNT 4.4 K/mm3 (4.0-10.0)
[2024-07-26 16:49] LABS: ALK PHOS 830 U/L (45-117); ANION GAP 18 mmol/L (4-13); SGOT/AST 8575 U/L (15-37)
[2024-07-26 16:56] VITALS: RESP 12
[2024-07-26 19:10] VITALS: BP 113/76; PULSE 58; TEMP 95
[2024-07-26] MEDS ORDERED: INSULIN ASPART SLIDING SCALE (NOVOLOG) 1 VIAL SQ SCH (22:00)
[2024-07-26] MEDS ORDERED: CHLORHEXIDINE GLUCONATE 4% CLEANSER FOR DECOLONIZATION TP SCH ×2 (22:00)
[2024-07-27] MEDS ORDERED: fentaNYL 100mcg/hr PATCH.TD72 TD SCH (13:00)
== END 2024-07-26 19:35 | disposition expired | DRG 951 ==
LOC: JER 11:06 → JERBED 20:13 → J8W 22:47 → JICU 07-26 04:24
PROVIDERS: ADMIT Internal Medicine; ATTEND Internal Medicine
PROC: 30233R1 Transfusion of Nonautologous Platelets into Peripheral Vein, Percutaneous Approach (ICD-10-PCS; 2024-07-05)
PROC: 07DR3ZX Extraction of Iliac Bone Marrow, Percutaneous Approach, Diagnostic (ICD-10-PCS; 2024-07-07)
PROC: 30233N1 Transfusion of Nonautologous Red Blood Cells into Peripheral Vein, Percutaneous Approach (ICD-10-PCS; 2024-07-14)
PROC: 03HY32Z Insertion of Monitoring Device into Upper Artery, Percutaneous Approach (ICD-10-PCS; principal; 2024-07-26)
PROC: 5A1935Z Respiratory Ventilation, Less than 24 Consecutive Hours (ICD-10-PCS; 2024-07-26)
PROC: 0BH17EZ Insertion of Endotracheal Airway into Trachea, Via Natural or Artificial Opening (ICD-10-PCS; 2024-07-26)
PROC: 02HV33Z Insertion of Infusion Device into Superior Vena Cava, Percutaneous Approach (ICD-10-PCS; 2024-07-26)
PROC: B548ZZA Ultrasonography of Superior Vena Cava, Guidance (ICD-10-PCS; 2024-07-26)
PROC: 4A133B1 Monitoring of Arterial Pressure, Peripheral, Percutaneous Approach (ICD-10-PCS; 2024-07-26)
PROC: 4A133J1 Monitoring of Arterial Pulse, Peripheral, Percutaneous Approach (ICD-10-PCS; 2024-07-26)
PROC: 30233L1 Transfusion of Nonautologous Fresh Plasma into Peripheral Vein, Percutaneous Approach (ICD-10-PCS; 2024-07-26)
PROC: 30233K1 Transfusion of Nonautologous Frozen Plasma into Peripheral Vein, Percutaneous Approach (ICD-10-PCS; 2024-07-26)
DX: C79.51 Secondary malignant neoplasm of bone (principal); J96.01 Acute respiratory failure with hypoxia; D61.818 Other pancytopenia; N17.9 Acute kidney failure, unspecified; R78.81 Bacteremia; D62 Acute posthemorrhagic anemia; C78.7 Secondary malignant neoplasm of liver and intrahepatic bile duct; E87.5 Hyperkalemia; E87.20 Acidosis, unspecified; R64 Cachexia; N39.0 Urinary tract infection, site not specified; C61 Malignant neoplasm of prostate; I10 Essential (primary) hypertension; E78.5 Hyperlipidemia, unspecified; Z68.20 Body mass index [BMI] 20.0-20.9, adult; E16.2 Hypoglycemia, unspecified; B95.61 Methicillin susceptible Staphylococcus aureus infection as the cause of diseases classified elsewhere
CPT/HCPCS: 20225; 36415; 36430; 36511; 36600; 71045-TC-FY; 74018-TC-FY; 74174-TC; 74178-TC; 76705-TC; 77012-TC; 80048; 80053; 81003; 82248; 82550; 82553; 82728; 82747; 82803; 82962; 82977; 83605; 83615; 83735; 84100; 84484; 85014; 85025; 85027; 85045; 85362; 85379; 85384; 85610; 85730; 86704; 86708; 86803; 86850; 86900; 86901; 86922; 87040; 87086; 87186; 87340; 87389; 87517; 87635; 87804; 88300-TC; 93005; 93010; 93306-TC; 93975; 94002; 97116-GP; 97161-GP; 99285-25; J3490; P9017; P9034; P9037; P9038; P9058; Q9967